=== PATIENT | female | born 1995 | race Caucasian/White ===

== ENCOUNTER 2024-08-11 10:29 | Outpatient (OUT) | payer OTHER, SELFPAY ==
--- NOTE | 2024-08-11 10:32 | US_ITS ---
[address] [address] Patient Name: NITESH ALBRIGHT MRN: [id number] date: 1995 Sex: F Assigned Patient Location: [facility] Current Patient Location: [facility] Accession/Order Number: [id number] Exam Date: 08/11/2024 10:34 Report Date: 08/11/2024 11:37 At the request of: RADHA ROJO Procedure: US OB >= 14 weeks Fetus EXAMINATION: US OB >= 14 weeks Fetus HISTORY: MISSED MENSES, LATE CARE COMPARISON: No relevant comparison available. FINDINGS: Abdi intrauterine gestation position: Cephalic presentation, longitudinal lie Amniotic fluid volume: 2.7 cm, largest fluid pocket 4.3 cm Heart rate: 135 bpm BPD: 7.77 cm, 30 weeks 1 day Head circumference: 28.9 cm, 31 weeks 6 days Abdominal circumference: 28.1 cm, 32 weeks 1 day Femur length: 5.8 cm, 30 weeks 4 days Estimated weight: 3 lbs. 15 oz. Femur length BPD: 75.16 Clinical age: Unknown Ultrasound age: 31 weeks 3 days Ultrasound CATHI: 10/10/2024 US/US OB >= 14 weeks Fetus IMPRESSION: Viable abdi intrauterine gestation measuring 31 weeks 3 days Electronically authenticated by: RADHA HERBERT Date: 08/11/2024 11:37
== END 2024-08-11 10:30 | disposition home or self-care (01) ==
LOC: NOMS 10:29
PROVIDERS: PCP Family Medicine; Visit Provider Obstetrics & Gynecology
DX: Z34.93 Encounter for supervision of normal pregnancy, unspecified, third trimester (principal)
CPT/HCPCS: 76815

== ENCOUNTER 2024-08-16 09:53 | Outpatient (OUT) | payer OTHER, SELFPAY ==
--- NOTE | 2024-08-16 09:57 | US_ITS ---
[address] [address] Patient Name: NITESH ALBRIGHT MRN: [id number] date: 1995 Sex: F Assigned Patient Location: US Current Patient Location: US Accession/Order Number: [id number] Exam Date: 08/16/2024 10:00 Report Date: 08/16/2024 10:58 At the request of: CLYDE RUSH Procedure: US OB transvaginal EXAMINATION: US OB anatomy, US OB transvaginal HISTORY: Screening Anatomic Survey COMPARISON: No relevant comparison available. TECHNIQUE: Transabdominal sonographic examination was performed for obstetrical and evaluation. FINDINGS: Number: 1 Heart Rate: 142.11 bpm H.B. /min Amniotic Fluid Volume: Subjectively normal position: Cephalic presentation, longitudinal lie Placental Location: Anterior fundal. Grade 0 Cervix Length: 4.32 cm , closed Normal anatomy: Lateral ventricles, cerebellum, posterior fossa, nose, lips, orbits, four-chamber heart, RVOT, LVOT, diaphragm, stomach, kidneys, abdominal cord insertion, bladder, umbilical arteries, three-vessel cord, spine, extremities BIOMETRY: BPD: 7.94 cm; 31 weeks 6 days; 33.20 % HC: 29.40 cm; 32 weeks 3 days; 21 % AC: 28.01 cm; 32 weeks 0 days; 46.20 % FL: 6.02 cm; 31 weeks 2 days; 17.50 % EFW:1852.63 g; 30.30 %, 4 lbs. 1 oz. FL/AC: 21.50 FL/BPD: 75.82 HC/AC: 1.05 GESTATIONAL AGE: Age by EDC: 32 weeks 1 day CATHI by EDC: 2024-10-10 Age by current US: 31 weeks 6 days CATHI by current US: 2024-10-12 US/US OB transvaginal IMPRESSION: Normal anatomy scan Closed cervix measuring 4.3 cm in length *Reference: [employer] Practice Guideline for the performance of Obstetric Ultrasound Examinations, August 10, 2007. Electronically authenticated by: RADHA HERBERT Date: 08/16/2024 10:58
--- NOTE | 2024-08-16 09:57 | US_ITS ---
[address] [address] Patient Name: NITESH ALBRIGHT MRN: [id number] date: 1995 Sex: F Assigned Patient Location: US Current Patient Location: US Accession/Order Number: [id number] Exam Date: 08/16/2024 10:00 Report Date: 08/16/2024 10:58 At the request of: CLYDE RUSH Procedure: US OB anatomy EXAMINATION: US OB anatomy, US OB transvaginal HISTORY: Screening Anatomic Survey COMPARISON: No relevant comparison available. TECHNIQUE: Transabdominal sonographic examination was performed for obstetrical and evaluation. FINDINGS: Number: 1 Heart Rate: 142.11 bpm H.B. /min Amniotic Fluid Volume: Subjectively normal position: Cephalic presentation, longitudinal lie Placental Location: Anterior fundal. Grade 0 Cervix Length: 4.32 cm , closed Normal anatomy: Lateral ventricles, cerebellum, posterior fossa, nose, lips, orbits, four-chamber heart, RVOT, LVOT, diaphragm, stomach, kidneys, abdominal cord insertion, bladder, umbilical arteries, three-vessel cord, spine, extremities BIOMETRY: BPD: 7.94 cm; 31 weeks 6 days; 33.20 % HC: 29.40 cm; 32 weeks 3 days; 21 % AC: 28.01 cm; 32 weeks 0 days; 46.20 % FL: 6.02 cm; 31 weeks 2 days; 17.50 % EFW:1852.63 g; 30.30 %, 4 lbs. 1 oz. FL/AC: 21.50 FL/BPD: 75.82 HC/AC: 1.05 GESTATIONAL AGE: Age by EDC: 32 weeks 1 day CATHI by EDC: 2024-10-10 Age by current US: 31 weeks 6 days CATHI by current US: 2024-10-12 US/US OB anatomy IMPRESSION: Normal anatomy scan Closed cervix measuring 4.3 cm in length *Reference: [employer] Practice Guideline for the performance of Obstetric Ultrasound Examinations, August 10, 2007. Electronically authenticated by: RADHA HERBERT Date: 08/16/2024 10:58
== END 2024-08-16 09:54 | disposition home or self-care (01) ==
LOC: US 09:53
PROVIDERS: PCP Family Medicine; Visit Provider Physician Assistant
DX: O09.33 Supervision of pregnancy with insufficient antenatal care, third trimester (principal); Z36.89 Encounter for other specified antenatal screening; Z3A.31 31 weeks gestation of pregnancy
CPT/HCPCS: 36415; 76805; 76817; 80307; 80349; 83036; 85025; 86592; 86762; 86803; 86850; 86900; 86901; 87086; 87340; 87389

== ENCOUNTER 2024-08-16 10:43 | Outpatient (OUT) | payer OTHER, SELFPAY ==
[2024-08-16 11:06] LABS: Basophils Percent Auto 0.2 % (0.2-2.0); Eosinophils Absolute Auto 0.1 10^3/uL (0.0-0.7); Eosinophils Percent Auto 0.8 % (0.9-7.0); Hematocrit 32.7 % (36.0-48.0); Hemoglobin 10.9 g/dL (12.0-16.0); Immature Granulocytes Abs Auto 0.03 10^3/uL (0.00-0.03); Immature Granulocytes Pct Auto 0.3 % (0.0-0.5); Lymphocytes Absolute Auto 2.8 10^3/uL (1.2-3.8); Lymphocytes Percent Auto 29.7 % (20.5-60.0); Mean Corpuscular HGB Conc 33.3 g/dL (29.9-35.2); Mean Corpuscular Hemoglobin 28.9 pg (26.7-34.0); Mean Corpuscular Volume 86.7 fL (81.0-99.0); Mean Platelet Volume 10.8 fL (9.5-13.5); Monocytes Absolute Auto 0.4 10^3/uL (0.3-0.8); Monocytes Percent Auto 4.7 % (1.7-12.0); Neutrophils Absolute Auto 6.1 10^3/uL (1.4-6.5); Neutrophils Percent Auto 64.3 % (43.0-75.0); Platelet Count 214 10^3/uL (150-450); Red Blood Count 3.77 10^6/uL (4.20-5.40); Red Cell Distribution Width 13.2 % (11.0-15.0); White Blood Count 9.4 10^3/uL (4.0-11.0)
[2024-08-16 11:18] LABS: Amphetamine Screen Urine NEGATIVE (NEGATIVE); Barbiturates Screen Urine NEGATIVE (NEGATIVE); Benzodiazepines Screen Urine NEGATIVE (NEGATIVE); Buprenorphine Screen Urine NEGATIVE (NEGATIVE); Cannabinoid Screen Urine POSITIVE (NEGATIVE); Cocaine Screen Urine NEGATIVE (NEGATIVE); Methadone Screen Urine NEGATIVE (NEGATIVE); Methamphetamines Screen Urine NEGATIVE (NEGATIVE); Opiate Screen Urine NEGATIVE (NEGATIVE); Oxycodone Screen Urine NEGATIVE (NEGATIVE); Phencyclidine Screen Urine NEGATIVE (NEGATIVE); Tricyclic Antidepressant Urine NEGATIVE (NEGATIVE)
[2024-08-16 12:09] LABS: Estimated Average Glucose 97 mg/dL
[2024-08-17 06:10] LABS: HBsAg Screen Negative (Negative); HCV Ab Non Reactive (Non Reactive); HIV Ab/p24 Ag Screen Non Reactive (Non Reactive)
[2024-08-17 12:13] LABS: Rapid Plasma Reagin, Quant Non Reactive titer (NonRea<1:1)
== END 2024-08-16 10:44 | disposition home or self-care (01) ==
LOC: LAB 10:45
PROVIDERS: PCP Family Medicine; Visit Provider Obstetrics & Gynecology
DX: O09.30 Supervision of pregnancy with insufficient antenatal care, unspecified trimester (principal)
CPT/HCPCS: 36415; 80307; 80349; 83036; 85025; 86592; 86762; 86803; 86850; 86900; 86901; 87086; 87340; 87389

== ENCOUNTER 2024-09-21 21:55 | Outpatient (REF) | payer OTHER, SELFPAY ==
--- OUTSIDE RECORDS SUMMARY | 2024-09-21 21:58 | XMS_ITS | CCD ---
Author Organization [facility] Care Team Providers Care Power Distribution Engineer Name Role Phone TafoyaYomi Primary Care Physician [phone] MD Bo Cid Attending Provider RYANN ., DR GARCIA Consulting Unavailable REQUEST, NONE LISTED Primary Care Unavaila ble RYANN ., DR GARCIA Attending Unavailable RYANN ., DR GARCIA Admitting Unavailable RYANN ., DR GARCIA Consulting Unavailable REQUEST, DR NONE LISTED Primary Care Unavaila ble RYANN ., DR GARCIA Attending Unavailable RYANN ., DR GARCIA Admitting Unavailable ZIEBER, DR RANDEE Mendieta Consulting Unavailable RYANN ., DR GARCIA Consulting Unavailable REQUEST, NONE LISTED Primary Care Unavaila ble RYANN ., DR GARCIA Attending Unavailable RYANN ., DR GARCIA Admitting Unavailable ZIEBER, DR RANDEE Mendieta Consulting Unavailable VICTOR MANUEL ., LILLI Consulting Unavailable REQUEST, NONE LISTED Primary Care Unavaila ble VICTOR MANUEL ., LILLI Attending Unavailable VICTOR MANUEL ., LILLI Admitting Unavailable RYANN ., DR GARCIA Consulting Unavailable REQUEST, NONE LISTED Primary Care Unavaila ble RYANN ., DR GARCIA Attending Unavailable RYANN ., DR GARCIA Admitting Unavailable RYANN ., DR GARCIA Consulting Unavailable REQUEST, NONE LISTED Primary Care Unavaila ble RYANN ., DR GARCIA Attending Unavailable RYANN ., DR GARCIA Admitting Unavailable REQUEST, NONE LISTED Primary Care Unavaila ble RYANN ., DR GARCIA Attending Unavailable RYANN ., DR GARCIA Admitting Unavailable KARASIK ., DR KNAPP Consulting Unavailabl e REQUEST, DR GOODWIN LISTED Primary Care Unavaila ble RYANN ., DR GARCIA Attending Unavailable RYANN ., DR GARCIA Admitting Unavailable RANDEE THORNTON Consulting Unavailable RYANN ., DR GARCIA Consulting Unavailable REQUEST, DR GOODWIN LISTED Primary Care Unavaila ble RYANN ., DR GARCIA Attending Unavailable RYANN ., DR GARCIA Admitting Unavailable RYANN ., DR GARCIA Procedure Practitioner Unavail able RYANN ., DR GARCIA Consulting Unavailable REQUEST, DR GOODWIN LISTED Primary Care Unavaila ble REQUEST, DR GOODWIN LISTED Referring Unavaila ble RYANN ., DR GARCIA Attending Unavailable RYANN ., DR GARCIA Admitting Unavailable RYANN ., DR GARCIA Consulting Unavailable REQUEST, NONE LISTED Primary Care Unavaila ble RYANN ., DR GARCIA Attending Unavailable RYANN ., DR GARCIA Admitting Unavailable ZIEBER, DR RANDEE Mendieta Consulting Unavailable RYANN ., DR GARCIA Consulting Unavailable REQUEST, NONE LISTED Primary Care Unavaila ble RYANN ., DR GARCIA Attending Unavailable RYANN ., DR GARCIA Admitting Unavailable Michelet LANDA, Yomi Corral Primary Care Provider [phone] LILLI RUSH Attending Unavailable RYANN, RADHA Attending Unavailable Medications Current Medications Medication Drug Class(es) Dates Sig (Normalized) Sig (Original) [id number] 200 actuat albuterol 0.09 mg/actuat metered dose inhaler (1 source) beta2-Adrenergic Agonist Start: 09-20-2019 take 1 puff(s) by inhalation once for wheezing Pro-Air HFA CFC free 90 mcg/inh MDI 1 puff(s), Inhalation, Once for wheezing, 8.5 gram, Refill(s) 0 Start Date: 09/20/19 Status: Ordered famotidine 20 mg oral tablet (1 source) Histamine-2 Receptor Antagonist Start: 02-16-2021 take 1 tablet by mouth twice daily Pepcid 20 mg Tab 20 mg = 1 tab(s), Oral, BID, # 30 tab(s), Refills(s) 0, Pharmacy: [facility], 160, cm, 02/15/21 22:38:00 EDT, Height/Length Dosing, 100, kg, 02/15/21 22:38:00 EDT, Weight Dosing Start Date: 02/16/21 Status: Ordered metoclopramide 10 mg oral tablet (2 sources) Dopamine-2 Receptor Antagonist Start: 08-26-2024 End: 09-25-2024 metoclopramide (Reglan) 10 MG tablet Indications: Nausea Take 1 tablet (10 mg) by mouth in the morning and 1 tablet (10 mg) at noon and 1 tablet (10 mg) in the evening. Take before meals. Take 1 tablet by mouth 30 minutes prior to meals 3 times daily as needed for nausea.. 90 tablet 2 08/26/2024 09/25/2024 Active MV-Min-Fe Fum-FA-DHA ( 1 PO) (5 sources) MV-Min- Fe Fum-FA-DHA ( 1 PO) Take by mouth Active Quantitative beta hCG (1 source) Start: 09-17-2021 Quantitative beta hCG Quantitative beta hCG, Quantitative beta hCG To Be Drawn on 09/19/[address] Garzon DX: Threatened miscarriage, Print Requisition, Supply Start Date: 09/17/21 Status: Ordered sertraline 50 mg oral tablet (1 source) Serotonin Reuptake Inhibitor Start: 05-22-2014 sertraline 50 mg oral tablet Refills(s) 0 Start Date: 05/22/14 Status: Ordered Problems Active Problems Problem Classification Problem Date Documented Date Episodic/Chronic Asthma (2 sources) Asthma; Translations: [Unspecified asthma, uncomplicated] Onset: 01-06-2023 09-20-2019 Chronic Diabetes mellitus without complication (4 sources) Other abnormal glucose; Translations: [OTHER ABNORMAL GLUCOSE] Onset: 10-31-2022 Episodic Menstrual disorders (4 sources) Irregular menstruation, unspecified; Translations: [IRREGULAR MENSTRUATION UNSPECIFIED] Onset: 06-14-2022 Chronic Nausea and vomiting (2 sources) Nausea; Translations: [Nausea] 08-26-2024 Episodic OB-related trauma to perineum and vulva (1 source) Second degree perineal laceration during delivery; Translations: [SECOND DEG PERINEAL LAC DUR DELIV] Onset: 01-06-2023 Episodic Other complications of ; puerperium affecting management of mother (1 source) Streptococcus B carrier state complicating childbirth; Translations: [STREP B SEVERINO STATE COMP CHILDBIRTH] Onset: 01-06-2023 Episodic Other complications of ; puerperium affecting management of mother (1 source) Diseases of the respiratory system complicating childbirth; Translations: [DISEASES RESP SYS COMP CHILDBIRTH] Onset: 01-06-2023 Episodic Other complications of (4 sources) Uterine size-date discrepancy, third trimester; Translations: [UTERINE SZ-DATE DISCREPANCY 3RD TRI] Onset: 12-06-2022 Episodic Other nutritional; endocrine; and metabolic disorders (1 source) Body mass index 30+ - obesity 06-27-2020 Chronic Other and delivery including normal (11 sources) Single live ; Translations: [ state, incidental] Onset: 05-14-2022 Episodic Other screening for suspected conditions (not mental disorders or infectious disease) (19 sources) Encounter for screening for diabetes mellitus; Translations: [Encounter for other specified screening] Onset: 06-14-2022 Episodic Prolonged (3 sources) Post-term ; Translations: [POST-TERM ] Onset: 12-25-2022 Episodic Residual codes; unclassified (1 source) 40 weeks gestation of ; Translations: [40 WEEKS GESTATION OF ] Onset: 01-06-2023 Episodic Residual codes; unclassified (1 source) 37 weeks gestation of ; Translations: [37 WEEKS GESTATION OF ] Onset: 12-09-2022 Episodic Residual codes; unclassified (2 sources) Gestation period, 33 weeks; Translations: [33 weeks gestation of ] 08-26-2024 Episodic Substance-related disorders (1 source) Smoker 02-15-2021 Chronic Comment on above: Added secondary to d ocumentation in Social History. Substance-related disorders (2 sources) Drug use complicating childbirth; Translations: [Cannabis use, unspecified, uncomplicated] Onset: 01-06-2023 Episodic Unclassified (3 sources) OT SPCF DIS/COND COMPL CHILDBIRTH; Translations: [OTH SPCF DIS/COND COMPL CHILDBIRTH] Onset: 09-11-2022 Past or Other Problems Problem Classification Problem Date Documented Date Episodic/Chronic E Codes: Fall (1 source) Unspecified fall, initial encounter; Translations: [UNSPECIFIED FALL INITIAL ENCOUNTER] Onset: 09-11-2022 Episodic Immunizations and screening for infectious disease (3 sources) Encounter for screening for human papillomavirus (HPV); Translations: [Encounter for screening for infections with a predominantly sexual mode of transmission] Onset: 06-18-2022 Episodic Other female genital disorders (1 source) Other specified noninflammatory disorders of vagina; Translations: [OTH SPEC NONINFLAMMATORY D/O VAGINA] Onset: 07-31-2022 Episodic Residual codes; unclassified (1 source) 24 weeks gestation of ; Translations: [24 WEEKS GESTATION OF ] Onset: 09-11-2022 Episodic Unclassified (1 source) [facility] DIS/COND COMPL CHILDBIRTH; Translations: [[facility] DIS/COND COMPL CHILDBIRTH] Onset: 09-07-2022 Results Test Name Value Interpretation Reference Range Facility Urinalysis macro (dipstick) panel (U)on 08-26-2024 Bilirubin, UA Negative Negative - 4(70) +++ mg/dL [facility] Blood, UA Positive Negative - 50 Froylan/mcL [facility] Comment on above: trace-intact Clarity, UA Clear [facility] Color, UA Yellow [facility] Glucose, UA Negative Negative - 1999(110) ++++ mg/dL [facility] Ketones, UA Negative Negative - 160(16) ++++ mg/dL [facility] Leukocytes, UA Positive Negative - 500+++ Cuong/mcL [facility] Comment on above: small Nitrite, UA Negative Negative - Positive [facility] pH, UA 6.5 5 - 9 [facility] Protein, UA Negative Negative - 1999(20) ++++ mg/dL [facility] Spec Grav, UA 1.025 1 - 1.03 [facility] Urobilinogen, UA 0.2 0.2 - 12 mg/dL [facility] Urinalysis macro (dipstick) panel (U)on 08-11-2024 Bilirubin, UA Negative Negative - 4(70) +++ mg/dL [facility] Blood, UA Negative Negative - 50 Froylan/mcL [facility] Clarity, UA Clear [facility] Color, UA Yellow [facility] Glucose, UA Negative Negative - 1999(110) ++++ mg/dL [facility] Interpretation and review of laboratory results Abnormal [facility] Ketones, UA Negative Negative - 160(16) ++++ mg/dL [facility] Leukocytes, UA Positive Negative - 500+++ Cuong/mcL [facility] Nitrite, UA Negative Negative - Positive [facility] pH, UA 7.0 5 - 9 [facility] Protein, UA Negative Negative - 1999(20) ++++ mg/dL [facility] Spec Grav, UA 1.020 1 - 1.03 [facility] Urobilinogen, UA 1.0 0.2 - 12 mg/dL [facility] CANNABINOID (THC) CONFIRMATI ON, URINEon 12-31-2022 Cannabinoid Positive Abnormal [facility] Comment on above: Performed By: #### [id number] #### [facility] [address] [place] [address] Dr. Janice Boateng THC GC/MS Conf 101 ng/mL Normal Cutoff=10 [facility] Comment on above: Performed By: #### [id number] #### [facility] [address] [place] [address] Dr. Janice Almeida CBC AUTO DIFFon 12-26-2022 BASO # 0.0 103/ul Normal 0.0-0.1 [facility] Comment on above: Performed By: #### C BC #### [facility] [address] [place] [address] Dr. Janice Almeida Basophils/100 WBC (Bld) 0.3 % Normal 0.2-2.0 [facility] Comment on above: Performed By: #### C BC #### [facility] [address] [place] [address] Dr. Janice Almeida EO # 0.2 103/ul Normal 0.0-0.7 [facility] Comment on above: Performed By: #### C BC #### [facility] [address] [place] [address] Dr. Janice Almeida Eosinophils/100 WBC (Bld) 1.3 % Normal 0.9-7.0 [facility] Comment on above: Performed By: #### C BC #### [facility] [address] [place] [address] Dr. Janice Almeida Erythrocyte distribution width (RBC) [Ratio] 14.4 % Normal 11.0-15.0 [facility] Comment on above: Performed By: #### C BC #### [facility] [address] [place] [address] Dr. Janice Almeida Hematocrit (Bld) [Volume fraction] 28.2 % Critically low 36.0-48.0 [facility] Comment on above: Performed By: #### C BC #### [facility] [address] [place] [address] Dr. Janice Almeida Hemoglobin (Bld) [Mass/Vol] 9.2 g/dL Critically low 12.0-16.0 [facility] Comment on above: Result Comment: Post Performed By: #### C BC #### [facility] [address] [place] [address] Dr. Janice Almeida IG # 0.06 10e3/ul Critically high 0.00-0.03 [facility] Comment on above: Performed By: #### C BC #### [facility] [address] [place] [address] Dr. Janice Almeida IG % 0.5 % Normal 0.0-0.5 [facility] Comment on above: Performed By: #### C BC #### [facility] [address] [place] [address] Dr. Janice Almeida LYMPH # 4.5 103/ul Critically high 1.2-3.8 [facility] Comment on above: Performed By: #### C BC #### [facility] [address] [place] [address] Dr. Janice Almeida Lymphocytes/100 WBC (Bld) 36.0 % Normal 20.5-60.0 [facility] Comment on above: Performed By: #### C BC #### [facility] [address] [place] [address] Dr. Janice Almeida MANUAL DIFF REQ NO Normal [facility] Comment on above: Performed By: #### C BC #### [facility] [address] [place] [address] Dr. Janice Almeida MCH (RBC) [Entitic mass] 27.5 pg Normal 26.7-34.0 [facility] Comment on above: Performed By: #### C BC #### [facility] [address] [place] [address] Dr. Janice Almeida MCHC (RBC) [Mass/Vol] 32.6 g/dL Normal 29.9-35.2 [facility] Comment on above: Performed By: #### C BC #### [facility] [address] [address] [address] Janice Almeida MCV (RBC) [Entitic vol] 84.4 fL Normal 81.0-99.0 [facility] Comment on above: Performed By: #### C BC #### [facility] [address] [address] [address] Janice Almeida MONO # 0.8 103/ul Normal 0.3-0.8 [facility] Comment on above: Performed By: #### C BC #### [facility] [address] [address] [address] Janice Almeida Monocytes/100 WBC (Bld) 6.3 % Normal 1.7-12.0 [facility] Comment on above: Performed By: #### C BC #### [facility] [address] [place] [address] Dr. Janice Almeida NEUT # 7.0 103/ul Critically high 1.4-6.5 [facility] Comment on above: Performed By: #### C BC #### [facility] [address] [place] [address] Dr. Jnaice Almeida Neutrophils/100 WBC (Bld) 55.6 % Normal 43.0-75.0 [facility] Comment on above: Performed By: #### C BC #### [facility] [address] [place] [address] Dr. Janice Almeida Platelet mean volume (Bld) [Entitic vol] 10.4 fL Normal 9.5-13.5 [facility] Comment on above: Performed By: #### C BC #### [facility] [address] [place] [address] Dr. Janice Almeida PLT 183 103/ul Normal 150-450 [facility] Comment on above: Performed By: #### C BC #### [facility] [address] [place] [address] Dr. Janice Almeida RBC 3.34 106/ul Critically low 4.20-5.40 [facility] Comment on above: Performed By: #### C BC #### [facility] [address] [place] [address] Dr. Janice Almeida WBC 12.5 103/ul Critically high 4.0-11.0 [facility] Comment on above: Performed By: #### C BC #### [facility] [address] [address] [address] Janice Almeida CBC AUTO DIFFon 12-25-2022 BASO # 0.0 103/ul Normal 0.0-0.1 [facility] Comment on above: Performed By: #### C BC #### [facility] [address] [place] [address] Dr. Janice Almeida Basophils/100 WBC (Bld) 0.3 % Normal 0.2-2.0 [facility] Comment on above: Performed By: #### C BC #### [facility] [address] [place] [address] Dr. Janice Almeida EO # 0.1 103/ul Normal 0.0-0.7 [facility] Comment on above: Performed By: #### C BC #### [facility] [address] [place] [address] Dr. Janice Almeida Eosinophils/100 WBC (Bld) 0.9 % Normal 0.9-7.0 [facility] Comment on above: Performed By: #### C BC #### [facility] [address] [place] [address] Dr. Janice Almeida Erythrocyte distribution width (RBC) [Ratio] 14.5 % Normal 11.0-15.0 [facility] Comment on above: Performed By: #### C BC #### [facility] [address] [place] [address] Dr. Janice Almeida Hematocrit (Bld) [Volume fraction] 34.0 % Critically low 36.0-48.0 [facility] Comment on above: Performed By: #### C BC #### [facility] [address] [place] [address] Dr. Janice Almeida Hemoglobin (Bld) [Mass/Vol] 11.3 g/dL Critically low 12.0-16.0 [facility] Comment on above: Performed By: #### C BC #### [facility] [address] [place] [address] Dr. Janice Almeida IG # 0.05 10e3/ul Critically high 0.00-0.03 [facility] Comment on above: Performed By: #### C BC #### [facility] [address] [place] [address] Dr. Janice Almeida IG % 0.4 % Normal 0.0-0.5 [facility] Comment on above: Performed By: #### C BC #### [facility] [address] [place] [address] Dr. Janice Almeida LYMPH # 4.4 103/ul Critically high 1.2-3.8 [facility] Comment on above: Performed By: #### C BC #### [facility] [address] [place] [address] Dr. Janice Almeida Lymphocytes/100 WBC (Bld) 37.6 % Normal 20.5-60.0 [facility] Comment on above: Performed By: #### C BC #### [facility] [address] [place] [address] Dr. Janice Almeida MANUAL DIFF REQ NO Normal [facility] Comment on above: Performed By: #### C BC #### [facility] [address] [place] [address] Dr. Janice Almeida MCH (RBC) [Entitic mass] 27.6 pg Normal 26.7-34.0 [facility] Comment on above: Performed By: #### C BC #### [facility] [address] [place] [address] Dr. Janice Almeida MCHC (RBC) [Mass/Vol] 33.2 g/dL Normal 29.9-35.2 [facility] Comment on above: Performed By: #### C BC #### [facility] [address] [place] [address] Dr. Janice Almeida MCV (RBC) [Entitic vol] 82.9 fL Normal 81.0-99.0 [facility] Comment on above: Performed By: #### C BC #### [facility] [address] [place] [address] Dr. Janice Almeida MONO # 0.8 103/ul Normal 0.3-0.8 [facility] Comment on above: Performed By: #### C BC #### [facility] [address] [place] [address] Dr. Janice Almeida Monocytes/100 WBC (Bld) 6.5 % Normal 1.7-12.0 [facility] Comment on above: Performed By: #### C BC #### [facility] [address] [address] [address] Janice Almeida NEUT # 6.3 103/ul Normal 1.4-6.5 [facility] Comment on above: Performed By: #### C BC #### [facility] [address] [place] [address] Dr. Janice Almeida Neutrophils/100 WBC (Bld) 54.3 % Normal 43.0-75.0 [facility] Comment on above: Performed By: #### C BC #### [facility] [address] [place] [address] Dr. Janice Almeida Platelet mean volume (Bld) [Entitic vol] 10.4 fL Normal 9.5-13.5 [facility] Comment on above: Performed By: #### C BC #### [facility] [address] [place] [address] Dr. Janice Almeida PLT 233 103/ul Normal 150-450 [facility] Comment on above: Performed By: #### C BC #### [facility] [address] [place] [address] Dr. Janice Almeida RBC 4.10 106/ul Critically low 4.20-5.40 [facility] Comment on above: Performed By: #### C BC #### [facility] [address] [place] [address] Dr. Janice Almeida WBC 11.6 103/ul Critically high 4.0-11.0 [facility] Comment on above: Performed By: #### C BC #### [facility] [address] [place] [address] Dr. Janice Almeida DRUG SCREEN RAPID (URINE)on 12-25-2022 AMP Negative Normal NEGATIVE [facility] Comment on above: Performed By: #### [id number] #### [facility] [address] [place] [address] Dr. Janice Almeida BAR Negative Normal NEGATIVE [facility] Comment on above: Performed By: #### [id number] #### [facility] [address] [place] [address] Dr. Janice Almeida BUP Negative Normal NEGATIVE [facility] Comment on above: Performed By: #### [id number] #### [facility] [address] [place] [address] Dr. Janice Almeida BZO Negative Normal NEGATIVE [facility] Comment on above: Performed By: #### [id number] #### [facility] [address] [place] [address] Dr. Janice Almeida MARSHALL Negative Normal NEGATIVE [facility] Comment on above: Performed By: #### [id number] #### [facility] [address] [place] [address] Dr. Janice Almeida CUT-OFFS SEE BELOW Normal [facility] Comment on above: Result Comment: AMP (Amphetamine): 500ng/mL, BAR (Barbituates): 200 ng/mL, BZO (Benzodiazepines): 150 ng/mL, BUP (Buprenorphine): 10 ng/mL, MARSHALL (Cocaine): 150 ng/mL, mAMP (Methamphetamine): 500 ng/mL, MTD (Methadone): 200 ng/mL, OPI (Opiates): 100 ng/mL, OXY (Oxycodone): 100 ng/mL, PCP (Phencyclidine): 25 ng/mL, PPX (Propoxyphene): 300 ng/mL, THC (Cannabinoids): 50 ng/mL, TCA (Trycyclic Antidepressants): 300 ng/mL Performed By: #### [id number] #### [facility] [address] [place] [address] Dr. Janice Almeida DRUG CUT HEADER DRUG CLASS TEST SYSTEM CUT-OFF CONCENTRATIONS ARE FOLLOWS: Normal [facility] Comment on above: Performed By: #### [id number] #### [facility] [address] [place] [address] Dr. Janice Almeida mAMP Negative Normal NEGATIVE [facility] Comment on above: Performed By: #### [id number] #### [facility] [address] [place] [address] Dr. Janice Almeida MTD Negative Normal NEGATIVE [facility] Comment on above: Performed By: #### [id number] #### [facility] [address] [place] [address] Dr. Janice Almeida OPI Negative Normal NEGATIVE [facility] Comment on above: Performed By: #### [id number] #### [facility] [address] [place] [address] Dr. Janice Almeida OXY Negative Normal NEGATIVE [facility] Comment on above: Performed By: #### [id number] #### [facility] [address] [place] [address] Dr. Janice Almeida PCP Negative Normal NEGATIVE [facility] Comment on above: Performed By: #### [id number] #### [facility] [address] [place] [address] Dr. Janice Almeida PPX Negative Normal NEGATIVE [facility] Comment on above: Performed By: #### [id number] #### [facility] [address] [place] [address] Dr. Janice Almeida TCA Negative Normal NEGATIVE [facility] Comment on above: Performed By: #### [id number] #### [facility] [address] [place] [address] Dr. Janice Almeida THC Positive Abnormal NEGATIVE [facility] Comment on above: Performed By: #### [id number] #### [facility] [address] [place] [address] Dr. Janice Almeida TYPE AND SCREENon 12-25-2022 TYPE AND SCREEN Negative Normal [facility] Comment on above: Performed By: #### T NS #### [facility] [address] [place] [address] Dr. Janice Almeida US PREG GROWTHon 12-08-2022 US PREG GROWTH EXAMINATION: US PREG GROWTH HISTORY: Uterine size for dates discrepancy COMPARISON: Ultrasound anatomy 08/17/2022 FINDINGS: Heart Rate: 155.2 bpm Number: 1.0 Position: CEPHALIC Amniotic Fluid Volume: 18.6 cm Maximum Vertical Pocket: 5.3 cm BIOMETRY: BPD: 9.6 cm cm; 39 weeks 1 days; 96% HC: 33.1 cmcm; 37 weeks 5 days; 31% AC: 33.7 cm cm; 37 weeks 4 days; 69% FL: 7.3 cm cm; 37 weeks 2 days; 48% EFW: 3283.5 grams; 66% FL/AC: 21.7 FL/BPD: 76.2 HC/AC: 1.0 GESTATIONAL AGE: Age by EDC: 37 weeks 3 days CATHI by EDC:; 12/24/2022 Age by US: 38 weeks 0 days CATHI by US: 12/20/2022 IMPRESSION: 1. Single live intrauterine with growth detailed above. Electronically authenticated by: RANDEE PIKE Date: 2022-12-08 20:23 Normal [facility] GROUP B STREP CULTUREon 11-11 S. agalactiae Ag Ql (Unsp spec) Isolate 1 Streptococcus agalactiae Light growth of ORGANISM 1 Streptococcus agalactiae ANTIBIOTIC M.I.C RX STATUS Benzylpenicillin <=0.06 S F Ampicillin <=0.25 S F Cefotaxime <=0.12 S F Ceftriaxone <=0.12 S F Levofloxacin 0.5 S F Inducible Clindamycin Resistance Neg NEG F Erythromycin >=8 R F Clindamycin >=1 R F Linezolid <=2 S F Vancomycin 0.5 S F Tetracycline >=16 R F Normal [facility] Comment on above: Performed By: #### C BC #### [facility] [address] [place] [address] Dr. Janice Almeida GTT 3 HR PREGon 10-31-2022 Glucose [Mass/Vol] 74 mg/dL Normal 74-106 [facility] Comment on above: Performed By: #### [id number] #### [facility] [address] [place] [address] Dr. Janice Almeida Glucose [Mass/Vol] 165 mg/dL Normal [facility] Comment on above: Performed By: #### [id number] #### [facility] [address] [address] [address] Janice Almeida Glucose [Mass/Vol] 126 mg/dL Normal [facility] Comment on above: Performed By: #### [id number] #### [facility] [address] [place] [address] Dr. Janice Almeida Glucose [Mass/Vol] 113 mg/dL Normal [facility] Comment on above: Performed By: #### [id number] #### [facility] [address] [place] [address] Dr. Janice Almeida GLUCOSE - 1HRon 10-25-2022 Glucose [Mass/Vol] 161 mg/dL Critically high 74-106 [facility] Comment on above: Performed By: #### C BC #### [facility] [address] [place] [address] Dr. Janice Almeida HEMOGRAM AND PLATELon 2021 Hematocrit (Bld) [Volume fraction] 32.0 % Critically low 36.0-48.0 [facility] Comment on above: Performed By: #### H H #### [facility] [address] [place] [address] Dr. Janice Almeida Hemoglobin (Bld) [Mass/Vol] 10.4 g/dL Critically low 12.0-16.0 [facility] Comment on above: Performed By: #### H H #### [facility] [address] [place] [address] Dr. Janice Almeida MCH (RBC) [Entitic mass] 28.3 pg Normal 26.7-34.0 [facility] Comment on above: Performed By: #### H H #### [facility] [address] [place] [address] Dr. Janice Almeida MCHC (RBC) [Mass/Vol] 32.5 g/dL Normal 29.9-35.2 [facility] Comment on above: Performed By: #### H H #### [facility] [address] [place] [address] Dr. Janice Almeida MCV (RBC) [Entitic vol] 87.0 fL Normal 81.0-99.0 [facility] Comment on above: Performed By: #### H H #### [facility] [address], [place] [address] Dr. Janice Almeida PLT 204 103/ul Normal 150-450 [facility] Comment on above: Performed By: #### H H #### [facility] [address], [place] [address] Dr. Janice Almeida RBC 3.68 106/ul Critically low 4.20-5.40 [facility] Comment on above: Performed By: #### H H #### [facility] [address], [place] [address] Dr. Janice Almeida WBC 9.7 103/ul Normal 4.0-11.0 [facility] Comment on above: Performed By: #### H H #### [facility] [address], [place] [address] Dr. Janice Almeida US PREG PLACENTAon US PREG PLACENTA EXAM: US PREG PLACENTA HISTORY: [place] COMPARISON: Ultrasound 08/17/2022. TECHNIQUE: Ultrasound imaging of the gravid uterus was performed. FINDINGS: The cervix measures approximately 3.9 cm in length. The placenta is posterior without evidence of previa. No focal placental lesion identified. Inferior placental margin is approximately 5.2 cm from the internal cervical os. Amniotic fluid: adequate. There is a abdi intrauterine gestation with breech presentation. A detailed anatomic survey was not performed.. heart rate is 142 bpm. IMPRESSION: Abdi intrauterine gestation with breech presentation. heart rate is 142 bpm. Posterior placenta without previa or focal abnormality. Electronically authenticated by: RANDEE THORNTON Date: 2022-09-07 13:38 Normal [facility] US PREG ANATOMY SINGLEon US PREG ANATOMY SINGLE EXAMINATION: US PREG ANATOMY SINGLE HISTORY: screening COMPARISON: No relevant comparison available. TECHNIQUE: Transabdominal sonographic examination was performed for obstetrical and evaluation. FINDINGS: Number: 1 Heart Rate: 142.9 bpm H.B. /min Amniotic Fluid Volume: Subjectively normal Placental Location: POSTERIOR with lower margin 3.7 cm from os. Cervix Length: 4 cm closed. ANATOMY: Normal Structures -cerebellum, choroid plexus, cisterna magna, lateral cerebral ventricles, orbits, midline falx, hard palate, four-chamber heart, RVOT, LVOT, stomach, kidneys, bladder, umbilical cord insertion into abdomen, three-vessel cord, cervical spine, thoracic spine, lumbar spine, sacral spine, right upper extremity, left upper extremity, right lower extremity, left lower extremity. SUBOPTIMALLY SEEN: None ABNORMALITIES: None BIOMETRY: BPD: 5.1 cm 21 weeks 3 days HC: 18.8 cm 21 weeks 1 days AC: 16.6 cm 21 weeks 4 days FL: 3.7 cm 21 weeks 6 days EFW:443.4 grams; 51% FL/AC: 22.6 FL/BPD: 73.7 HC/AC: 1.1 GESTATIONAL AGE: Age by EDC: 21 weeks 4 days CATHI by EDC: 12/24/2022 Age by current US: 21 weeks 4 days CATHI by current US: 12/24/2022 IMPRESSION: 1. Single live intrauterine with growth detailed above. Electronically authenticated by: RANDEE PIKE Date: 2022-08-17 16:28 Normal [facility] PAP ACOG PANEL 2: 21 to 29on 08-08-2022 . . Normal [facility] Comment on above: Result Comment: Perf ormed at: [facility] Performed By: #### 4 [id number] #### [facility] [address] [address] [address] Janice Almeida Age Gdln ACOG Testing Normal [facility] Comment on above: Performed By: #### 4 [id number] #### [facility] [address] [address] [address] Janice Almeida DIAGNOSIS: Comment Abnormal [facility] Comment on above: Result Comment: EPIT HELIAL CELL ABNORMALITY. ATYPICAL SQUAMOUS CELLS OF UNDETERMINED SIGNIFICANCE (ASC-US). Performed at: [facility] Performed By: #### [id number] #### [facility] [address] [address] [address] Janice Almeida Electronically signed by: Comment Normal [facility] Comment on above: Result Comment: Cristy Robert MD, Pathologist Performed at: [facility] Performed By: #### [id number] #### [facility] [address] [address] [address] Janice Almeida HPV Aptima Negative Normal Negative [facility] Comment on above: Result Comment: This nucleic acid amplification test detects fourteen high-risk HPV types (16,18,31,33,35,39,45,51,52,56,58,59,66,68) without differentiation. Performed By: #### 4 [id number] #### [facility] [address] [place] [address] Dr. Janice Almeida Methodology: Comment Normal [facility] Comment on above: Result Comment: This liquid based ThinPrep(R) pap test was screened with the use of an image guided system. Performed at: WB Performed By: #### 4 [id number] #### [facility] [address] [place] [address] Dr. Janice Almeida Note: Comment Normal [facility] Comment on above: Result Comment: The Pap smear is a screening test designed to aid in the detection of premalignant and malignant conditions of the uterine cervix. It is not a diagnostic procedure and should not be used as the sole means of detecting cervical cancer. Both false-positive and false-negative reports do occur. . Performed at: WB Performed By: #### [id number] #### [facility] [address] [place] [address] Dr. Janice Almeida Pathologist Provided ICD10 Comment Normal [facility] Comment on above: Result Comment: [id number] Performed at: [facility] Performed By: #### 4 [id number] #### [facility] [address] [place] [address] Dr. Janice Almeida Performed by: Comment Normal [facility] Comment on above: Result Comment: Mc Bustos, Radio Recorder (ASCP) Performed at: WB Performed By: #### 4 [id number] #### [facility] [address] [place] [address] Dr. Janice Almeida Reflex Criteria: Comment Normal [facility] Comment on above: Result Comment: See below for HPV testing results. . Performed at: [facility] Performed By: #### 4 [id number] #### [facility] [address] [place] [address] Dr. Janice Almeida Specimen adequacy: Comment Normal [facility] Comment on above: Result Comment: Sati sfactory for evaluation. No endocervical component is identified. Performed at: [facility] Performed By: #### [id number] #### [facility] [address] [place] [address] Dr. Janice Almeida CHLAMYDIA/GONOCOCCUS ZAHRA (SW AB/URINE/PAPon 08-02-2022 Chlamydia trachomatis, ZAHRA Negative Normal Negative [facility] Comment on above: Performed By: #### [id number] #### [facility] [address] [place] [address] Dr. Janice Almeida Neisseria gonorrhoeae, ZAHRA Negative Normal Negative [facility] Comment on above: Performed By: #### 4 [id number] #### [facility] [address] [place] [address] Dr. Janice Almeida VAGINITIS/VAGINOSIS DNA PROB Justin 08-02-2022 Kenna species Negative Normal Negative [facility] Comment on above: Performed By: #### V AGINT #### [facility] [address] [place] [address] Dr. Janice Almeida Gardnerella vaginalis Positive Abnormal Negative [facility] Comment on above: Performed By: #### V AGINT #### [facility] [address] [place] [address] Dr. Janice Almeida Trichomonas vaginalis Negative Normal Negative [facility] Comment on above: Performed By: #### V AGINT #### [facility] [address] [place] [address] Dr. Janice Almeida HEP B SURFACE ANTIGEN SCREEN on 06-15-2022 HBsAg Screen Negative Normal Negative [facility] Comment on above: Performed By: #### C BC #### [facility] [address] [place] [address] Dr. Janice Almeida HEPATITIS C VIRUS AB W/ REFL EX QUANTon 06-15-2022 HCV AB <0.1 Normal 0.0-0.9 [facility] Comment on above: Performed By: #### [id number] #### [facility] [address] [place] [address] Dr. Janice Almeida Interpretation: Comment Normal [facility] Comment on above: Result Comment: Nega tive Not infected with HCV, unless recent infection is suspected or other evidence exists to indicate HCV infection. Performed By: #### 4 [id number] #### [facility] [address] [place] [address] Dr. Janice Almeida HIV 1 AND 2 WITH REFLEXon HIV Screen 4th Generation wRfx Non-Reactive Normal Non Reactive [facility] Comment on above: Result Comment: HIV Negative HIV-1/HIV-2 antibodies and HIV-1 p24 antigen were NOT detected. There is no laboratory evidence of HIV infection. Performed By: #### H IV12 #### [facility] [address] [place] [address] Dr. Janice Almeida RPR QUANTon 06-15-2022 Rapid Plasma Reagin, Quant Non-Reactive Normal NonRea<1:1 [facility] Comment on above: Result Comment: Plea Note: This test does not meet current guidelines for screening and diagnosis of syphilis. This test is intended for following treatment response in patients being treated for syphilis infection. To screen for syphilis infection, a reflex cascade that includes both RPR and a treponema-specific assay should be utilized, such as Treponema pallidum (Syphilis) Screening [place] (326448) or Rapid Plasma Reagin (RPR) Test With Reflex to Quantitative RPR and Confirmatory Treponema pallidum Antibodies (938408). Performed By: #### [id number] #### [facility] [address] [place] [address] Dr. Janice Almeida RUBELLA AB IGGon 06-15-2022 Rubella Antibodies, IgG 17.40 index Normal Immune >0.99 [facility] Comment on above: Result Comment: Non- immune <0.90 Equivocal 0.90 - 0.99 Immune >0.99 Performed By: #### C BC #### [facility] [address] [place] [address] Dr. Janice Almeida CBC AUTO DIFFon 06-14-2022 BASO # 0.0 103/ul Normal 0.0-0.1 [facility] Comment on above: Performed By: #### C BC #### [facility] [address] [place] [address] Dr. Janice Almeida Basophils/100 WBC (Bld) 0.4 % Normal 0.2-2.0 [facility] Comment on above: Performed By: #### C BC #### [facility] [address] [place] [address] Dr. Janice Almeida EO # 0.1 103/ul Normal 0.0-0.7 [facility] Comment on above: Performed By: #### C BC #### [facility] [address] [place] [address] Dr. Janice Almeida Eosinophils/100 WBC (Bld) 1.7 % Normal 0.9-7.0 [facility] Comment on above: Performed By: #### C BC #### [facility] [address] [place] [address] Dr. Janice Almeida Erythrocyte distribution width (RBC) [Ratio] 13.2 % Normal 11.0-15.0 [facility] Comment on above: Performed By: #### C BC #### [facility] [address] [place] [address] Dr. Janice Almeida Hematocrit (Bld) [Volume fraction] 35.3 % Critically low 36.0-48.0 [facility] Comment on above: Performed By: #### C BC #### [facility] [address] [place] [address] Dr. Janice Almeida Hemoglobin (Bld) [Mass/Vol] 11.9 g/dL Critically low 12.0-16.0 [facility] Comment on above: Performed By: #### C BC #### [facility] [address] [place] [address] Dr. Janice Almeida IG # 0.03 10e3/ul Normal 0.00-0.03 [facility] Comment on above: Performed By: #### C BC #### [facility] [address] [place] [address] Dr. Janice Almeida IG % 0.4 % Normal 0.0-0.5 [facility] Comment on above: Performed By: #### C BC #### [facility] [address] [place] [address] Dr. Janice Almeida LYMPH # 2.8 103/ul Normal 1.2-3.8 [facility] Comment on above: Performed By: #### C BC #### [facility] [address] [place] [address] Dr. Janice Almeida Lymphocytes/100 WBC (Bld) 33.7 % Normal 20.5-60.0 [facility] Comment on above: Performed By: #### C BC #### [facility] [address] [place] [address] Dr. Janice Almeida MANUAL DIFF REQ NO Normal [facility] Comment on above: Performed By: #### C BC #### [facility] [address] [place] [address] Dr. Janice Almeida MCH (RBC) [Entitic mass] 29.2 pg Normal 26.7-34.0 [facility] Comment on above: Performed By: #### C BC #### [facility] [address] [place] [address] Dr. Janice Almeida MCHC (RBC) [Mass/Vol] 33.7 g/dL Normal 29.9-35.2 [facility] Comment on above: Performed By: #### C BC #### [facility] [address] [place] [address] Dr. Janice Almeida MCV (RBC) [Entitic vol] 86.7 fL Normal 81.0-99.0 [facility] Comment on above: Performed By: #### C BC #### [facility] [address] [place] [address] Dr. Janice Almeida MONO # 0.3 103/ul Normal 0.3-0.8 [facility] Comment on above: Performed By: #### C BC #### [facility] [address] [place] [address] Dr. Janice Almeida Monocytes/100 WBC (Bld) 4.1 % Normal 1.7-12.0 [facility] Comment on above: Performed By: #### C BC #### [facility] [address] [address] [address] Janice Almeida NEUT # 5.0 103/ul Normal 1.4-6.5 [facility] Comment on above: Performed By: #### C BC #### [facility] [address] [address] [address] Janice Almeida Neutrophils/100 WBC (Bld) 59.7 % Normal 43.0-75.0 [facility] Comment on above: Performed By: #### C BC #### [facility] [address] [place] [address] Dr. Janice Almeida Platelet mean volume (Bld) [Entitic vol] 10.3 fL Normal 9.5-13.5 [facility] Comment on above: Performed By: #### C BC #### [facility] [address] [place] [address] Dr. Janice Almeida PLT 214 103/ul Normal 150-450 [facility] Comment on above: Performed By: #### C BC #### [facility] [address] [place] [address] Dr. Janice Almeida RBC 4.07 106/ul Critically low 4.20-5.40 [facility] Comment on above: Performed By: #### C BC #### [facility] [address] [place] [address] Dr. Janice Almeida WBC 8.4 103/ul Normal 4.0-11.0 [facility] Comment on above: Performed By: #### C BC #### [facility] [address] [place] [address] Dr. Janice Almeida CULTURE URINEon 06-14-2022 CULTURE URINE Culture Observations: HEAVY GROWTH OF MIXED GENITAL LICO. NO POTENTIAL PATHOGENS SEEN. Normal [facility] Comment on above: Performed By: #### U RCX #### [facility] [address] [place] [address] Dr. Janice Almeida GLYCOHEMOGLOBIN A1Con 2021 ADA RECOMMENDATION SEE BELOW Normal [facility] Comment on above: Result Comment: ADA RECOMMENDED LIMIT 4.0 - 6.0 ADA THERAPEUTIC TARGET < 7.0 ACTION SUGGESTED > 7.0 Performed By: #### A 1C #### [facility] [address] [address] [address] Janice Almeida Glucose [Mass/Vol] 111 mg/dL Normal [facility] Comment on above: Performed By: #### A 1C #### [facility] [address], [place] [address] Dr. Janice Almeida HbA1c (Bld) [Mass fraction] 5.5 % Normal 4.5-6.2 [facility] Comment on above: Performed By: #### A 1C #### [facility] [address] [address] [address] Janice Almeida ROJAS BOX TEST PT SEND OUTo n 06-14-2022 SENT TO REF LAB 06/14/2022 Normal [facility] Comment on above: Performed By: #### N BOX #### [facility] [address] [place] [address] Dr. Janice Almeida TYPE AND SCREENon 06-14-2022 TYPE AND SCREEN Negative Normal [facility] Comment on above: Performed By: #### C BC #### [facility] [address] [place] [address] Dr. Janice Almeida Coding Summary.on 05-07-2022 Coding Summary. CD:[id number] Gh0bWw+PGhlYWQ+PE1FV SJfB61yiDMhjT8YQ9aWU W2DDMMRUCKRAJ1EYW9yt SR3STkfU6LutuPc MzkekKWfQR57MGw9VRK0 sGvcNFxxaM7toXFdW3z0 ZzSvPX72qK99ORaeYUTe McB8EtKqtsqoyYUf Q1xvNnEzwSLfHeg+PHRh YmxlIHdpZHRoPScxMDAl ArMtlDqgJX4jKb4tJZDo LWNvbGxhcHNlOiBj v4peYQZfJXvxFI6pgRzg J9IsqYK2KDRpg7y3Ot66 dHI+MEIcJWW3oZafZQrv r349ZzYss5nyMJP4 pJEmFDvsDQU9R48qf2I1 XRDyUYJoIZP6bSU2gY5f eXeqgimbE5IryDOuMjL7 QNM7qLDmoP0kfOrs jwwvwY5gKpx+E10FHG1R XUGZCS9AYtc6L3VaMkcp dHI+AK04GZCrCY31dZTu wLBur6idaUn4ZuPb HEJpRFM7uNjdGSccp9Dk COQlB11fzIBjz6G4BGHc iNclxWQdVjBbwWS3zZ2q ITpkngvww9egkejv Cjqze5rnzu90eV76U23y GIumLRNcNDB1ENTuWFQc oAyqxg2qoY1bSi5+IDxj v4wvw0jlvCb4WqOl PBWpsnOubKgpETV1q9Bd Qj62R3UcaEsze2OsNmp2 ff00kPHqp1T7bPM6FUhm ZGOotN7qUPblYhB5 ZQXpRyFquR57nDMaSWkr Qy9owMkjxCeeSO9oULUx hxiuIWPyrI8fABXosDGi eBlaHU4mTQZznurz y409XmKaNGI9XQEynXOz O5MwsX0jAiZmEIDrSJDn O5HfcBFeQNvzN917TDkf ZmK5JUPwheLsA6Xz CIMhzSciYxY4q3G7Im1F q8AkezovMFY1IEfbBXJ3 UpJ0PdBtJgH9F4GoXag7 VWBmpCzrWL1nG4Lo KRZvpnbadrycgMF5LPUx QFUbcD68lEMlEBdjLo8q s7Q8m712VWOfKXUgsP78 Vo8wzBuoOTNfvHRK jO5kvowvk9hwqhkiKyVw LHRsFKh9KFn6SAThvTkp FuXlAFQ8EgE3LIG1yNHw qJ2fsNgfgbazwP5a Oyc+P63doO7mCQL9WTR9 xhstVDWnyhXjER91AH22 N8UnWwtutKCnrCC+PGRp pxFgjPmkSD0sUxYs a1iva4QhTPogR4AsHCTq RThiNpn1VCLdMSN9gTK3 jY0gKUDhWSsdy5I6eAL2 W6LpfzOjgo6hw6tn PCDtYVdqL81vcMOay2X9 IDZuoDZ2ZHWmfAgjFzTm eC13Rch+WHXpkTrfe6Eu Pjlop1ptc3hdpPc0 IjMwJSIgdmFsaWduPSJ0 x3VtPr60Q52rYBbcCEJk JWXwDPEhTVJhvIunpo5l sR7yLt4+PGNvbCB3 jJS3aE5xDBSkFyZ6WZbl T498JwAlvNZbUyyao9nm t5cfpJd2JkKnXOZwirZj nMdgPUF5c5EgVp29 I07yMIeaGLJmUSSfGTHf LMSueIvuwz9rxG1hJv9+ AG6bf2opny15gK13eRA+ WRXkHHI5yRswRIkk TYBciL6fKWaiFwA7JFYe LjIycQ13qLHuFIsjCi3d aJrniZehND4wEVFkhzrn e777VrDoo5giVRLk eOZuFBbhOAZ1J28xl4T2 VQDiZCAjHLW1tOQ6uG1v bGlnbjogbGVmdDsgdmVy sKwzBTrmIQhrG526 IHRvcDsnPlBhdGllbnQg CwVfCPi7S8FqIcg8VUKp oTzcTF7eaBEsRTzmWi4e dWbefGiyDX0pWPIl expdn220OjLvh5inOCKo sRUpDSmwLTQ4E72he6F6 DXXaYZZjDTA5kXS0nS6e bGlnbjogbGVmdDsg fnOxtXuvUSafTLseT722 IHRvcDsnPkJpcnRoIERh eRV4FM92US18kZKdl9U5 sPW1P6ZuJQVkhige xuflaLT8WBVrQFFdkL35 Gl0ruYegQh2uTHIyZQK1 TCIuzSKiU1WapT2kDhZm KVPpZUExC4XigDBq GIdoG300QNavCgM4JGHb upTpW5WgOGSbqLbwPiX8 j3H3Rz6IO7P3BA30WY18 xJHxm2C5hMY8Z8Wa JLJrapbhvpbpxWL8RZDp LGIlrN75Ys1wgHuvHx4n ATTgMQH3LRFoiXLfP5Sb vI5vWgAqTBXfGOAo O4VrtDFeMSwkH553KIvq HkF0FUBezmJfW1VtHQHm uOhaZtF4e5F2Ww1PFSk0 BA95KP64oSAwi9P0 pQE6F5NjQLNqzxsuxqhd wXM6VEDlXXYmcQ47Fa5u qPpuMn6tAWZxKES1ORPy vIKbI6CqsF4oBgIt DLPcRNWcX7FmySBsBNre P281XVnnGsF8QZQwydMr W2DqYMRrePxsBiQ2g3I2 Mo8SRWFcMC27PWC9 hBH1NS17FY53O5EcHcqa dGFibGU+PHRhYmxlIHdp ZHRoPScxMDAlJyBzdHls KG0lIt2lQFWuUWDa cGptnWPkSbSta7myHBZk KSijVV9otLjrR7GibRQ3 CVXap1d3Wx20N27wI3Lz dXA+QJLajSP0cRV1 bY4eBfEiWcD4VLasJ986 FbCfmNSkRtxxa5czi7ce iVy5RxI1RCWbquYtbDhe THQ8v0PvFm93Q09p IHdpZHRoPSIxNSUiIHZh cUmfqe4pfM9oHl2+PGNv nDP3rUC6bH2mGmSjBiF7 JHbcU107PxDhuCOl Gacmg9igf1pitJb8VcOk PLWlucDbzRtoTIB4s7Yw As74C6KnyLffi3IgHip4 eg18uCZxr7R7nIV4 T0DpJHJfxionbLFmkNti SS9vOPIrertjFNDfpS2n DTCkV3l1FpWgEuN7XGfx V4EdhfP4KPAhrBNu MFhrYNU2K94cx5N4XPJx SHXuMPU2pQY0hO9ajJfd bjogbGVmdDsgdmVydGlj LPgeWRufM698YUGy qEueCZHnkQ6xCVBwgHFq eMhyLU9bOPJitmyoYmFY L0MLTkuuB6lGWgVVAH2c QTwvdGQ+PHRkIHN0 mLodYTqwAIJttV6dREWz Q2b8GsQiArY3AJnwW9Cs OKXmdhyzKy72fR6iNaCb DrB1BBinO0ZdpzT5 QTGltPKuOBkiOJU4M13w y5N2CFOpXVXnUUK8xVR8 eS3wcVnymrrqcICjrMpd dmVydGljYWwtYWxp K064IVGxsXbfZfK4MwB6 VvL4GFA5W1WnSvu4BYKy wTupDC2pdSTbQIbhDo7h xArhqVwzOD1qQOLh hcnfTAHuvS6iCVEdzVEm yNphHH6tWEQhzrpix737 GiNiLRR4JUNpsMXnR0Bj hG5hHuHmMVBbPAPb A4ZjfXSjZDbvQ418PKhj CkR3NCWgiqJiK7WtJTUw gRkaUjZ3z2E2Fm4zOKHD ZWFyczwvdGQ+PHRk HVZ2rBzuSDqdGXIrbA9h DXXlA2d0JoWzWnP6IVpc G6NrOVDnhdqpXp67xZ2u ZtQkBpA8HAuyA1Jc rcJ2TNUxsYYmNEgqOSI8 C88iw3V3BNKtGBDrVUR0 qUC5uK1mnGdkfpsmiQMf dDsgdmVydGljYWwt FUeyO875IRMysAkeQlPs bWFsZTwvdGQ+PHRkIHN0 hElfDPffJNHjlE4yNYQy Q3h2BgDyPzC5ULxm U9OnCSAilgwxHr88gZ3r ZvNeCjE7MLepS5DrqeU4 AFKlvTZhBKqzJND2T70n v2L0ULLpZVKyIWU0 nOF1iZ2vpSgvyvnqxCAu dDsgdmVydGljYWwtYWxp E837IRPjwJgpFy68rACm nQkditL4D0TwZoyq dHI+FX56DEKwHF81oHRe lYJen4oysRw1ZlNdUEPj IVS0iOyaFIjdi3XlFHQt D12qzXSxf8B4XFUg oXhuoHDrZvXckRV9vP7e CPcisriue0swffceGnyu h7zsbs68kT11P59pSVva ZHRoPSIzMCUiIHZh dYqlai8kaM8hEo0+PGNv kZV3vBF2oR0oDtHdIpN7 IVgzI346IyWcaMKqAoyj f6njc3adtAk2DuGh KEKrjnRatYvaQVX1n1Fc Xb93P71uMBqwTQKiJHNp PCVtSHNjbLbyuj3hlK9q Ii8+WT2qm7uypt39 rO94pTU+QENoBAR9nOmf YPiwNAQruU8sWYrsBtD1 QMEkEaZcjU51zAEoUNll Fh0jfMijrOaoYV4c CATarwcli846LyOkm7pb UFFoiBGtQVsbXJA4W16s f7R7ISLzJPDvIHK0bZO0 dV0riCvhuncprWMw dDsgdmVydGljYWwtYWxp Q937UXMtpEaoUkOrpZSp L3qyrkALBC1dOjdzdQL+ CQUsWUA1sMhiPZry XZHghC2vEDRmY0n9XnQr JuJ9FGtsK7EdnyN7LIPl qVBkKDDxcWKBvL3olpbq b3atclpuQnUfOLEw ODq4XLx8FBPvqMzhPnFn YSJ8XaK9HJD9cMTuiB6b bQfxfxyidD8gZqn+RklO OjwvdGQ+PHRkIHN0 mYarAPvbYYQhlM0hEJZn L8t2XpUrDoZ6IDrtI8Hx taQ5XJTnxHFwKLNzcHAN wE2mwdlfj0vwqmqm TwUcCSTaDHm4DOm3WKYu xUlkQuUwASF6ZqK0CAY2 fNExwL4xcKbiwpvhvV9a Oyc+TVJOOjwvdGQ+ SYOxKPM5nKpzOQfmRZQa eN3aYSXwN7y6TaByIgC3 GKfoX3BwngJ6HMBstUVp IJJhuSXKrX5gfcbj y5bhwobxDfKpLVTuCEm4 FQx9UGGiqEctNjXpGJS2 CwD6ZDL7gFCdlA0yxLqy yaknfT3yTxf+UGF5 CBO4GS09FI04M6WgDcku dGFibGU+PHRhYmxlIHdp ZHRoPScxMDAlJyBzdHls YI1fEs2uDFLhUKXv bGxh (more content not included)... Normal [facility] XR hand BI 2Von 05-06-2022 XR hand BI 2V [facility] [place] [address] XRay Report Signed Patient: Haley Swann MR#: [id number] : 1995 Acct:[id number] Age/Sex: 26 / F ADM Date: 05/06/22 Loc: [facility]XD Room: Type: [facility] Attending Dr: Bo Cid MD Copies to: Bo Cid MD Ordering Provider: Bo Cid MD Date of Service: 05/06/22 XR/XR hand BI 2V: KIARA HAND PAIN BILATERAL HAND - 2 views each REASON FOR EXAM: Ganglion cysts dorsal left hand/wrist COMPARISON: None FINDINGS: Left hand: No focal soft tissue abnormality. No radiopaque foreign body. No acute bony process. Joint spaces are maintained. No bony erosions. Right hand: No focal soft tissue abnormality. No radiopaque foreign body. No acute bony process. Joint spaces are maintained. No bony erosions. XR/XR hand BI 2V IMPRESSION: NO ACUTE FINDINGS. Impression dictated by: Albert East Jr., D.O.05/06/2022 11:59 AM Dictation Location: [place] [address] Transcribed By: [facility] 05/06/22 1159 Dictated By: Albert East Jr, DO 05/06/22 1158 Signed By: 05/06/[address] [facility] US PREG TVon 05-03-2022 US PREG TV EXAMINATION: US PREG TV HISTORY: Missed period COMPARISON: No relevant comparison available. FINDINGS: GESTATIONAL SAC: Present and normal appearing. POLE: Present and normal appearing. YOLK SAC: Present. CARDIAC: Present. UTERUS: Normal size and appearance. OVARIES: Right: Normal. Left: Normal. CERVIX: 4.1 cm in length and closed. CUL-DE-SAC: Normal. OTHER: None. AGE BY LMP: 11 weeks, 3 days CATHI BY LMP: 11/19/2022 AGE BY US CRL: 6 weeks, 3 days CATHI BY US CRL: 12/24/2022 IMPRESSION: 1. Single live intrauterine . Electronically authenticated by: RANDEE PIKE Date: 2022-05-03 16:41 Normal [facility] Quanton 04-26-2022 [place] [address] m[IU]/mL High 1-3 F [facility] Comment on above: Result Comment: GEST ATIONAL AGE HCG RANGE (mIU/mL) NON- <1-3 0.2-1 WEEKS 5-50 1-2 WEEKS 50-500 2-3 WEEKS 100-5,000 3-4 WEEKS 500-10,000 4-5 WEEKS 1,000-50,000 5-6 WEEKS 10,000-100,000 6-8 WEEKS 15,000-200,000 8-12 WEEKS 10,000-100,000 Performed By: #### 2 [id number] #### [facility] [address] [place] [address] CHEMISTRYOrdered By: SYSTEM SYSTEM on 04-26-2022 [place] [address] m[IU]/mL High 1 - 3 mIU/mL [facility] Remisol Consent for Treatmenton 04-10 Consent for Treatment [id number] #1.00CD:127 Normal [facility] Physician Orderon 04-26-2022 Physician Order [id number] #1.00CD:127 [facility] Outside Operativeon 12-06-19 22 Outside Operative [id number] #1.00CD:127 this was entered in ERROR [facility] Consenton 12-05-2021 Consent [id number] 5#1.00CD:127 [facility] Provider Visit Summar yon 11-19-2021 [facility] Provider Visit Summary Please click on link to see image. pdfCD:[id number] qDnABUnltgY0YPSXfKI9 pocc5PSuaAJBnYHLbEWX qROXrIQSiEJRJC6EcHmB la3dfrsOo Wmt3XSyjX1BoDLMdw40O YXRlIChEOjIwMjIwMTEw QOT6GuC0NsiNTl7ELG8g g7KkSaXpQGCmByfF MHcDCCQbUsFyTqYhH7ux ucg9lEVgYZLjGNGMOQOd OxctbGOuVK1IaGX8TZWk G14iGKf+PgpzdHJl WK3PcKrnafwRY+cex99z TvZgJCFsCHuGpUAAkRGm wPsVfsBTODZOGWUD14NF sKKoyFIEKYpYsFqG 8JdxGlmo3l1AMRWliXHV 0USep/G83i8t1+8f53ye 3/r8qhj8ozw0MpSisMfw MBdWAUAokogj/L0Z vDKeMExGrJPnHTS2TNxd rmGVUMtuxHzLp58BtRnT r1FzdlDNpZ5rXKeY/0+q 6NkwAQFnTI5ytMnc kukB4EiXV4zU1KgsVWiQ NWMYSqHJhaI4tdv9jIgn P/aKkCoMbNCAI44Qqn7k TIgD5eJxkcxfS60U IpfiPAE/T14M1IrfGVYR 5PxGESvkc+O4tUvEb1HT OWIikJcN4uyChsrpFLQn pX7ByV+yuM7zNZAV xhqkEAyU1zWSc96Pw90C tsBY1Kth3jFZAumDt8IP 1ffiARY4W3IOyCdPe5HM 1XQkO7FNaBuOK6OI zo8UWw9Yko3vVJ5f5VU6 204Z4K1/bH/on4LBCCxX Rfhcb8xLvdFvDJaHyd7/ fBT9HNUD500a6jl3 4ULwrgsPLBfa3ucu81kY +FwbRUF/90+Nn77cd4 iu1+Lw/Dh5/CkWZKGIq6 isBbz2UzBp10f0gv WW30lQ194P/PYR3BT+GL +UJ6EOM5fuJaFIm7XVbE RJAlYghE/6mJ/aJxW5bR z1uvuV5MVbALvHoi AeTnfoCiEgGSsFu+Av3e y4C7HQQvjUz54Lz7/yzo 81iOrjHSMQKd8pc7ARBL KxXnzawpriVAAwJQ BjSgCfSAETAHTOAAnIEb 8AS+RT7BQTBtCsfIBBJV mXZB3hDhzUwJx5ObNxqP 1qTYNNAx3SbPi02f LGfT46VwwXIaEBbBUBwE l1EBzNSPGMUlCYFUvEXk qoyOrmJqZJX7L/KFgqEI NP1TjgLzXONVkdEt pZQiPTtC8sJw0QyzOLJy ugANQnegIWgc+zC4NvQq GspEltSgcPcjZQ48ZN5Y E8MwiC44XL2HE8YU lOO0FK2BX5ZW3XdrLC9T YiQRBUC8kZKgVobPlNNb 8UgKIkZWICVIBdKAtCLd LI8iTNGyR6dxHUTO RTFQTJQbKgAVheKiclAr GJlZ3zw2tQ1BQ+oaagg1 yndPKhP41FRiS6VhOevl iz3ID4Qf7L7xfdIK 2H59EIgMKjQjU5nkwqeT RAftOnRXezejG7OGYIMF xAxjprBYrCbWCuuODcVy tVJaGyFPvnO4EohF E1U6cnSe3NISEO7yWB0Q E2KikO6VgzGvoG8ryjDr rBA4Zs7Pa2PZ5prenhkk /NP2BK5uiZtqA5fA NfbmnFHCSjZu1ZsiVnBQ iWc6BGjTt8gV8yiyQnWV 8TxxiPiWRCFZktikBJKU rQa3d3ITyHq1rodu l4F3noLfDBonyDt2dmlY /BbEyqWuDMyYV4icXBEV jGBZ9SbtNeiP4Ym0bjRP 0ShiB2hIzJfO0Gkf QhyAnjxLzCbJuvr3OAWH lxb5iqInPyFOumqEA7pU DqPPE9zjnJxezzcygJFG AgCoKFHQ9BDLTdhq T3lvPMcQlNYRK1yQ5w0q WxXb3Vjme0Co5NmJgmDA m7kbHM2AUwoLsOmXX4Ov 0t+g02i0umRXL3x3 et8Hk33erqCkilzu0MxB pLWuTvMv9rjVfqsVo4Pg xYIAt7GfROaui9qABn5Z gKj2zcJEp9X9fXBa TGxADsxXR8nEMl0+nSld PV1/0TnoFq5stoF7dW6C xHI18Bja0Lq8kzrj5HL5 2/YB5c4lrIU0OEbO GkSyJ2DTuwXUGXkQsjDd CY2wIclsvCdieeSUXdER TRXttD4rr2mHJP77qOhC rNulVKN1DnowkZKv SZ/Dk2So2edW9jdukvLn UolIDudSQpdql3NPZtav cQjEj2btOFzILGw8XS9K wpaOlmmWNZaXrWAr AkrT3N3xWAg2zJe6zIjA +cbCtAXe4oVxbFE7cZhy dgG6yYqJbH5e16577qnE fvItyXe1o9Q6V2+x n2e/xr7b/ldQLwvfV32M 4FpiQR9kJb7jokG2jlJs /rvmu435Ta2NENe69dw+ yAB9Tqc7Wa22Mbwk Fjx304BKEOLlCsguWenL u6cKHvln0oy6rZyhU0e+ 8sC3k3E07ZM0n3nRk65l pTB9H1rDd786vL4c ncXaIFQcTdPzBN8Kk3jh Ba88kklEMP2Qg1Lam06L mN38rz6j3u/Nhrcx8RY+ iI+/T4nPgC/FN8q3 9omqa4Ryoj+L36S/o/9S /4EN3UPsiP3HgiI9V2cB qVHZ59whLW/WW1UCJdGC BwLr1HOAPOboNvuC C9kWcn++yXzR/B9UUXvR hg19QTtFLI9H2+GY8LDw jnNOCeIPcfP1GsKJZS04 tPJBiZscKkU8YYVg wCIOnHT2ZiBu0HuEr4bw CIvwhlmh5ScyEeCMsU51 uDu0sOE34LYodBxTplE3 MmBt8Mhumsur3DPY CtnjDj7NTR1nGJ7JEugW MN7Uop5W9HHnilREu4jC K9lg1l6aK67gmtnvzA/O L+ePprinlKeMpbqn bksdT/PYo6wtGBGO6CZu 2YDtczluK8If7qO2cbjH zUPkuAmOqlUOXFFEq6NU BTB1nH6EWNiez2GV 3JHnZD0ZN+VCuYtyuyQ0 +a9Eo6Oswb97iXc9lzxx TX50/xGZ3HAYVH+hZeHG wtElfku+Tskyhr0k d7cr8tikM4s3vbazlLMx r+hOdeIgwPOSFo2B+1cT Vmes/vBH5CglQV/Xxqzt GoKhJoQ6wJ7/XUux UrG4+NZ6t/T8H6KaGIgT Ni5iUZLrBmxj7YMhLAvP 0esC0I3Wf7Y/mhSbK1kO Ng+VKQSc9tDQJyps q7yN9j5drzXNrji4qGjk 5M4ULmJ74B5TTFoiOcgW 2HNuiL7YHPBTcgTNI13e el+xJy5otnobbMpj maDw9391GTf1t+5urdOt G016y0fj56m6b62Lo2qW bR2A4qa7wgqaK/u+Zn3d 4SXBAMc3OY5cb2u/ lN8gYhha4uW2O8yt0LDg y/aGoRDIdyW3oxdF0Cqi Ba7lYCDBLA11+Rfa86sU ia76ISUumi0X8Yzx cvl0VLcEKqie6UuDNonP 0ua9Bb1gZ1vsw/v3Nt/v G5EwyKb88aXjC6TMDJq+ pClyzdjR3irW13jr h3sSe+1dsW2voZp8t+Bs 0Nnz5/zTuomf5gc54k13 aLoqT44wSY4ifFE1wcAm sb/2G2dp4skaLprd O1/ymdNmxCuodeVDsa3O T1/kcBvaczM0Najj7mi4 SVUj7x3PV3NdnQkjchQo PL+yd0c37pk18Rbr E2YlVYwGphvmw9AZaOPy 5oTwm8F+Xbuc8XooRv/9 Buhp6gLUk4gDA7n4M2eJ UAfHammRS3zr1EhK 0+wv5sAJG6f+XPvM/Nl3 v3j+8v3OJiraMJh290+b Xmi+9Ltk5iwmiiWtv9+E s1Mxp8oUsDK/Fang 19bGt1ZE+e+x7ys/WHzo /ri93z0j8avNggEJ7yNn YtLxCLD3ehCgrPadppBz YqkYZuGhJQ5jbomg F2tTK6Jvq3McEAOxCEXL HOpdxzKtOfyBCmYsPG3t kts0PBjfTR5XsBNjQY7Y LVWkJKY1GNtyKM7I sFS3dMAkPU4IYXbQUYJi AIWmE7YkTGMhKUYuHty+ OysxbBGlWH7ZFA42bVCc s8N2GCOuT4qeRBTv f57jDLiyEMPOXE9zNXJR FLvoUYswZJW5XhCgatxw WCRxEx61bRy1wCMmKINr UPgjcJ9vHez4FnFw j0QpXi6cMa6ciOKbCq3H ATHlBonDHFXmoH1mywI5 lvYnVIWceALfAc9vp0j6 EnhsWn0eUz8xJZv9 OzNpDgIzLNZtVt3roQ82 ATxmbiLyLm3CURYoLqwZ IQUclclomClvkrB1wYwy jzafRXU9Ggb1ySR4 Ks0yqm2oTN6mID0nq14i vSUjXfMwBy4kTMSsDtjr Ev38dE4uXk2MZNLqVzjF um4klYSvkk2AyQGw nWCnJo6LVBQcwyLul78h ST06FQswlCChKpJrb9R8 L5PwYcs8dKWuAuTYLkLu cnNpb24+SY86HS4w DQZ6XEJMRpQvc6ukup6G NH7wZPC6VSLnU5CssMCn b24+FklrWWL9SMIqB4Qx lGItu32eaS6dmgH7 XLZ4Dqf8hPK0Ct1mvDCk Mz0pTb0eJx4ixMZkNT59 qb6vRbGbPwOfERH8XORy vMX9FeA+CjxkYzpk FXZwHsh4jkGkZbRdrP1M CRUnDqndxB0bBVZzDDCb MBJnZKQ2RcWlFbD0Totb wpIjOwywQzu5V6Py ZjpTZXE+YovcMZN7DDP3 XS8KEQ3eAGE1PPDhS8Yv cHRpb24+FonwRNM6QPOk V6QdlICxr67juB4r uaX2mT1uPKXndEAoFk6a tsTsQGZaKrLwE39lO7gy eK5pYoWyBtCsFYB6WWZe yLU3YrN+Pnh2pLI5 P4YpVKAqITA9WP7fAAIb QFScLWMdPPP4XsAcYbP2 PucayR7eSxJaUTF0QLQn dGU+CjwvcmRmOkRl n3KnfLY3tV0vAry4F5Ij ZjpSREY+NzstsIx1oNKe ZXRhPjw/eHBh (more content not included)... Normal [facility] Coding Summary.on 10-11-2021 Coding Summary. CD:[id number]:[id number] Gh0bWw+PGhlYWQ+PE1FV FMqB57hjFKajK8GM3qXT G7CNIWOTUJCTO4ODF9ri ZF7IPccY7SvqeOg GcmdmNHbON09SRk4JSU9 dKpnVSwlaY9wiZQlV2n0 IoRsAX48bG48KCcbSNNd IvW7TtHsdqkvvOBc S0rtHcJpoTKnBtc+PHRh YmxlIHdpZHRoPScxMDAl UaPazFavQQ7vSo6zPJXa LWNvbGxhcHNlOiBj y1ayUSIvPBlrSD6ziUuc N2JvoUS8PSPmr8k9Yi71 dHI+JEOvMPI4dPlvCAtg a023XlYtb9ywIAV6 dKPpOTutTVE6Z11tf6O7 TECfJTSgILB3aLI0tX7b tUilqoroQ3DxnAHyCjW1 QNY9rBUpyE8ltMss rqfvxI8nCeq+E94IFS5W IPLVGI1DPou6Q1YrToux dHI+OL27VSQxJY39pJDc lYQae5xpbAc6PjBv QWNpOLB6bKmpFLwmp4My BGZiN92jbOFdx5Y7YVPv oDpplQQkRhKkdML5uH1f DLctqjirb6loheyd Zpdcp0vtjm00yA00M44o UBziJLFkFQB3RCPjYGQg oHsngy0qsH7sDe5+IDxj i0gzf3jvdHz4WrWx PDSwpjCdyXvbOUS4x2Ms Se74F8EeuRgam4DcEvs4 dy59rMWxk2B1jKK0RAwe EPRmmX8aZFdiKpH2 NPYwFfGwbY96kESyHVav Bo5nqNmfiMgzGM4eEIYw kkluBHYyyW9nXRVumLBo uIwtVX2hLZYoeoeu m002ClGrQHN8MSGntGVh P3ExsY3mBfOeSRHqWJEs L6AgaGUmNXutQ663HTyq PvO8BLPdluApQ4Vs AMHbyExrNgA0k7F0Cw2C l1KpuladDRU6OVemURKq AqMoGhLvFkA5B0OgFox2 FSIgqAyvPD5dL7Lu MBSjiloibnwedSI5JYEs HJCblC96aYAtKNbfTr6r o2Q7s732ZTUiFDWldS49 Uo9osGpvJVGusWHF fV9lllokt7rqovffErUa UGLsCYr8NPq6VZOrrQwz KzAxTIB6LaK7MND4yTDi cX7jaZgknqabxF6l Oyc+D83dcR1lMFT0EDC0 whsdBHVkqrKrFZ12OL61 A1JoYimtgDOvrUE+PGRp jaPoxIyuQP0uDiJr v7eyx0NkSLqcX5GsVZBv HCwwGxg8EVObRFC9oYB0 tF9kDKYxUUdvn3R3sRT8 Z0KfjuKbbc7id3qq DFTrDGtmI61hyNImu8L8 ZANghRQ5RUKhbEedSjGo aC44Ato+RWBxdDmyv8Fp Yscar4cvn9swtZt9 IjMwJSIgdmFsaWduPSJ0 v8YaFj86O29xASkzAXJh ALZuQPXaDTEawSwelr2s vN3mCr8+PGNvbCB3 cSG9cW2jMYStQfB4FNfd G577KlLjlYIeXyqhi3sh z8rawAh6AoWzKFIrdnOv pXiwSJL6d5HdUf10 J65nRBrvSWGcCSZaCXDp VRFftYapta0ubH3wTu9+ RY9wh3sjfz93bB78sAO+ ITWkIHR0sTgsXNbp EBMknF6jZKinNkB9GBEx VcDizS87xCDfEGpsEt4o yLyfkOfbNV8dRTYnpsmg k514MeMpb8qnLCYz gQHsXBpvOXQ2Y28at0G6 FPBqVSEmAHN1mMJ1gP9b bGlnbjogbGVmdDsgdmVy yTkjEMvuVLirH140 IHRvcDsnPlBhdGllbnQg SbNjFNd0Y0JiBfh1CDSk mInyQL4gvDGfLWrtSh6u jJtloOfeKG3sWLTg uxvwt300OqApt2aiZDAz zOIuDUkvJUY5O38bt9R9 OXOyXLAkYFQ2yOV3rG1q bGlnbjogbGVmdDsg ozHplOwkGEcnYHegN514 IHRvcDsnPkJpcnRoIERh nUQ9LQ52VZ61wMSps8R1 lPI2D6LaRQFiqilw pgpcgJU2TIHbRFGdxP59 Fz9nuRzbCq8mLZAcYXY8 GVNvvRQdW6VwnT3vDyEm QXPaNWOlC6PkfPYv SOrsK883IIyjXnF4LIBb ljSnF6LuDMUqiUqsHuN5 k7X4Hn0QO8R3BM29IF70 lVEyb5N7lEQ5Y8Pn WCEwrezuhadbtCF4ZAJe KZWjiG11Rx3taRavHr2y EIVwQHN0UBVarGIzB5Lv lU0mDvFwRGMzGWSw A6PwmBShBTyyK540TSmw RfZ8ZTSxwwAoZ8QtSWTn iLseIgO6y2E2Rq4KIQi2 SS89LT02mZVhv3Q5 wEJ7F4JgRDXvktgpevlr sDK4UHVsYZZvtN88Qe6g tDjrNt7nRKGyRHB3PVUo fYYxD3OmmC7pElXh RLMlUBZuV7McpJXmZWfw J587OBctHdF1UJFajjGp C2AtMDVcwAfuRoN5m8S6 Ar3BEWWxDB44GVQ3 pDI5KR95VQ57W0ZiYuyc dGFibGU+PHRhYmxlIHdp ZHRoPScxMDAlJyBzdHls LK5eUa3jUVBlSYPh gPkoaYAtVtWld9egAPSm QOfdSV8gaChuL3CywZP3 BERcq1p8Ei48M82qX6Jq dXA+KOUswTH5wXW1 sM0mYdByUmL3DDwwZ442 HlAskOBvMpubp8cmk0vn qLe5WuU6LMAdjpCheWyv ROJ7z3ZgYz15W42z IHdpZHRoPSIxNSUiIHZh cTjysp2jgJ9tRx1+PGNv wOB8cTU0mR5wGcStFsF4 QAeqU818RrDgyVQk Sungn0cui3odtZl3AmQg CXChvbGupIorGQL3z8Qh Pl79L5XhoAyif8PwDwb5 tm99jVRqr6E0cWY0 U4ZqKCCovstntWKgfMhe ZC5sBBYlkkqkGHBciY5r BKZlG2u2OmHjGtF3BWbo T7ZxulP2PKZvyRUl YDmaHHP8X17fs4D2KRTz PHEuCME7wFD8nF5ooTho bjogbGVmdDsgdmVydGlj JSyuXSryE355UWIz qHhkNTCnvI9hCDOcmOCl yHuxBA4sVQIslxzqYlVI O7LOVggdY0xPMrKRIE1h QTwvdGQ+PHRkIHN0 xXonEWafWZSdfQ4dCAXg Y4r1DgIkNsJ0ZErsX0Th MSOxyqmdWi40tR4yUxRc SnS1HQtrE2XuilC1 NDXozURxPWwhEPK7J72h l1F2YALeNFKwOTD6cZO9 rP8buIaytbprqHHnmGwg dmVydGljYWwtYWxp S735ZGUobDfbEvY0FfQ4 ElP7INO6I4EoEsw3XNLk mHocTN3qvSBmUUkxYj0p pVkwtZrrYT0hSHNq vyiqFCUnzM7uZQKggRLn cBwuNO4aQWGzhobdi337 YhDxPVQ7GSEyoNWoH7Wj xT3cBaMtACWwRJJw R0QkvBBkUCbwY955QEzo VlX2CGLjqpBpZ5RoGLTi wXmhCkG9o7T5Dt7jLHNL ZWFyczwvdGQ+PHRk HSW1aQhrJKvlBKMeqH2x EAKuF7e1TxMoDpY0DPht V0UcAMUwccjgCz10iD1u FtZcAoG2UWfeT0Jz vvU3EWSapHYzLZohEAI3 Y21pc2F0WZCcLZWoSHP3 lIZ6kT0bzKwcnztzeXMu dDsgdmVydGljYWwt GHswJ855JBOaoCjePkEn bWFsZTwvdGQ+PHRkIHN0 cAdxKCcoVHAvhL5jFBVp D5u5WiTsSrX6EZoc C4EaTWEfnofiEh81vB6m HxHoVfQ1OSccJ1PvrgV8 CPWpxLUsSAbmHSX0J63o u5T6ASOoXIFcAKC4 kFK0wG5pyTkzpwtaaMMe dDsgdmVydGljYWwtYWxp V591OTUdxAqkUnBvW2Tc cmluZzwvdGQ+PC90 fr41M4XaPkgoHyl4SIMd MRK7gFU8nK1cCCZsNUsh j8F9aGQ0I1FrniLnes3n z8osLONvEFjpF21b mXTjp1F0NJTuxFX8TVXu cMjxExIklS01Isx+PGNv kKgmn2JyNbgde6ttr7mz hPb1NyTqUVUijdTw qPnbWGN4t1JvPl38H79n IHdpZHRoPSIzMCUiIHZh lCerfa0ztQ7wWk8+PGNv aVT4yRW9yO8pNoFe RqX9JOxhL601JlOtoROo Tpwpy7hwk4gzpEq6NlLw LIZgxvDruVqlHPU8j9Zl Zx63G2GdqKadq2Jf Kag8gp39bQSfr7U8dDE1 R0ZiHZHsdumfjUMiqMjl QU1iAZFivdnyQHRdyN0c SDDwR2q1TmGeTwF0 VEbjD9ZmuvR6PZZaoYDa ZLNnpYPVwE9snniug0fq wrzrNeMvTWJxXOs7SHu6 LWFsaWduOiBsZWZ0 GhW9ETT0mVAdwR9buQjl sipctC5eFza+BGp2x7ez sGEuQM6hrSI1SV60FN42 yEKqf0A3sFP5V7Jw HVKyhsekwrrafHS0TTMc BAErgC84Mr1syKklUi2m LEUeYEQ5NLFjaPLjQ9Zo sU4aQrWbGJLhLJQn Q7ErkQFpJNuoS620YMww TkA0YRLhktErA5CrXDEc dUphVzF3z4C4Sk0OCI85 ZD84ZW87rXWds2K5 nFH6M5KwPLCuplplstao wXE1CLXyFDYptO63Nm2e xMvrBu9bFIYvAKG6IXTf lTDcV3MnoS7bTzIn JOSlDPHjP6NmnOUhASmz G479BHsfTyW0DIDihaYn J2DeDMIolAfoZnB2f7N1 Ve6DGc05GR55YZ16 bKYsd7V3bNF1T6AjBAIl ijqqumlmhXX5OQJqCQNu aD17Wu5uiLzeMb2wMRPq PAB0IODexMBkI9Tx wC4dNaLfYBYyNMSoG1Uh tPTsPItzT598WBrfPgA0 TDUxjzUuO6NoZDTveCbl RlQ9z5N7Jp8EXTjl bld9D8RlUddgyPT+PC90 LSFpHR95aESnxEPbp6dd gSj9YmPwHGBwBTT9pNti LZrnv1BeLLIsS17y bGFw (more content not included)... Normal [facility] Consent for Treatmenton Consent for Treatment [id number] 4#1.00CD:127 Normal [facility] Physician Orderon 10-11-2021 Physician Order [id number] #1.00CD:127 Normal [facility] Rapid COVID Antigen ([facility])on 10-11-2021 Rapid COV Int NEG Ctl Pass Normal [facility] Comment on above: Performed By: #### 2 [id number] ####[facility] [id number] [place] [address] Rapid COV Int POS Ctl Pass Normal [facility] Comment on above: Performed By: #### 2 [id number] ####[facility] [id number] [place] [address] SARS-CoV+SARS-CoV-2 (COVID-19) Ag IA.rapid Ql (Resp) Not detected Normal Not Detected [facility] Comment on above: Result Comment: The [employer]? System for Rapid Detection of SARS-CoV-2 is a chromatographic digital immunoassay intended for the direct and qualitative detection of SARS-CoV-2 nucleocapsid antigens in nasal swabs from individuals who are suspected of COVID-19 by their healthcare provider within the first five days of the onset of symptoms. Negative results should be treated as presumptive, do not rule out SARS-CoV-2 infection and should not be used as the sole basis for treatment or patient management decisions, including infection control decisions. Negative results should be considered in the context of a patient?s recent exposures, history and the presence of clinical signs and symptoms consistent with COVID-19, and confirmed with a molecular assay, if necessary, for patient management. For in vitro diagnostic use. In the [place], only for use under an Emergency Use Authorization. In the [place], this test has not been FDA cleared or approved; this test has been authorized by FDA under an EUA for use by authorized laboratories; use by laboratories certified under the CLIA, 42 U.S.C. ?263a, that meet requirements to perform moderate, high, or waived complexity tests and at the Point of Care (POC), i.e., in patient care settings operating under a CLIA Certificate of Waiver, Certificate of Compliance, or Certificate of Accreditation. This test has been authorized only for the detection of proteins from SARS-CoV-2, not for any other viruses or pathogens; and, in the [facility], this test is only authorized for the duration of the declaration that circumstances exist justifying the authorization of emergency use of in vitro diagnostics for detection and/or diagnosis of the virus that causes COVID-19 under Section 564(b)(1) of the Act, 21 U.S.C. ? 360bbb-3(b)(1), unless the authorization is terminated or revoked sooner. Performed By: #### 2 [id number] ####[address] [address] Employed in Healthcare NO [facility] Comment on above: Performed By: #### 2 [id number] ####[address] [place] [address] First Test Unknown [facility] Comment on above: Performed By: #### 2 [id number] ####[address] [place] [address] Hospitalized? NO Normal [facility] Comment on above: Performed By: #### 2 [id number] ####[address] [place] [address] ICU NO [facility] Comment on above: Performed By: #### 2 [id number] ####[address] [facility] [place] [address] ? Unknown [facility] Comment on above: Performed By: #### 2 [id number] ####[address] [facility] [address] Resides in a Congregate Care Setting NO [facility] Comment on above: Performed By: #### 2 [id number] ####[address] [place] [address] Symptomatic as defined by CDC YES Normal [facility] Comment on above: Performed By: #### 2 [id number] ####[address] [place] [address] Coding Summary.on 09-18-2021 Coding Summary. CD:[id number] Gh0bWw+PGhlYWQ+PE1FV MWdK86jwNYcwQ2RR6nKL Y7VJPXDHPYNBA5HDR9ml SS1XUisE1AkcwUx OsahtTMsJC00QTw5AHD1 bOjvXRrakF2gcYFiV9f5 HiVyHP76dW05DGcqHFNr IrG3GrYddldcpJRo Y4zhWdKqjEOhMri+PHRh YmxlIHdpZHRoPScxMDAl NbAzbPfiJT5mCq3bKLOu LWNvbGxhcHNlOiBj k9tyWGUwQBmxWH8eeYdk D5KrlNZ1SXIvn3l0Ik75 dHI+ESVnPKZ5jZryDKap l107StAid0vcUNH9 lTSmJIedIPF9B02rb8A1 IACqSBCuHDC5eHS9kB7l mYkpginbL8NsxFVlJeK7 GBH2uFPvlM1zwBnq yppvhP6aRyr+H48KOQ8H COFIAC3UIqk7G6DxEpox dHI+WF54NNJmJN92cIAv jOGve8jmdAd4OgXy MLVcQKQ7jGlqXXfld3Nc GZBcE54vrJZwu2T2BXHx uZamaRJuNjOfgPH1dJ3r VBijkyyvo4nxsjnh Hotii6svga47aJ96U81q TLttJCPcYGO7CPXeNKPi dQghhs5bwI3wYk1+IDxj t9hoy3qlkGv5YmZy KUVczgCaqNocAKI1b6Ax Nv76K2DowLjzh0TsLgj2 hz19tAEal4X7pFN1JSej FVMtmU4mGNfoMwJ5 PSPsQzPxsD94cHFvQVvo Gi6udJoxmHzwOY3dLMIe grdfWZPzbQ6pLLIrxLIi mBzfIE3cFZLqnyba d540IbZzJLY4GIZzbPZg M1NqtD5rObReGEHrXNXq C4ChpJXzWEdmE966RUqd DsU9SRKpenAfJ9Yn TMKihKtmFwC0b0W4Jl0A w9FhwearRWJ0SMcmYYDt RzT9QoXcNaT6Z8JzWtd1 OREmnJueVT7sD3Ck SCVumfiqbctoxBT7QTVf KAYrlF46tEKhAYgmSt9p k2E7q387EGUtYXVcmI08 Zc8poAwsFOLclVAA zA3qgxqai1luixgoLmKi WHFgPSq1MRh2WFScvZpw RtEbFWT0YgX9DBQ5cDEg mI3dcQjugtgxuN1x Oyc+V54xjP6xHTK3XGF5 xjqoBCUpqlXfNF91SS72 F8DmWfmogIMhhUF+PGRp bmSsmNgnSI5dArAk q5igj9HpNFogB3KiEJZf QQmpCrm6MHLlZSQ5qLI9 hK3dKXXhRNrem3G5tBM2 F3QmbfLads8xp0fu ZCFhTTkiR10zeETwv7I5 FQYygGP7YOTfvBzhTfRq dN82Isx+XOEpyIgzx7Gz Siajy6nzz3irjBc5 IjMwJSIgdmFsaWduPSJ0 z8UtLi50T39oOZfgXCIb EXNsGEIxCAPreIlnnd7y jV9rRf0+PGNvbCB3 iSM4qE5zZJGjJuH3USve Y114AaUrzPLqDtqdr2rs j4huoFt8YrDwKFAojuDl rGgfTOK2j8RiHg56 O29xXQowLSNmOJWlFCBa PVIisNpkig3pfP1zDg3+ NK1we5htfz87aO90fPI+ CMSvPOY1jAdtQFhh CQDoiE7gKYdaHsY7OHAt WlBtgR54jFUvLFojLm5c tAoreBrmGV3tMUFuhpmp k639SnQce0maMXEx gVXkWRmxUJF6D92pw0N2 TGPgTKXvQOZ5gEF4jN2v bGlnbjogbGVmdDsgdmVy xAlbLBlqNTnlX497 IHRvcDsnPlBhdGllbnQg JrSaKSh9J6OlEsh4GYCs wJzfUP5rjXUwOZurYn2r tRxmzIhgBH0kETSr msync838AfFhp2smQOHz gELnBKpfMEQ5G94hi4B6 CEWqUIQzCTP7dFF3xC5k bGlnbjogbGVmdDsg tlEzfGveNEctODavA195 IHRvcDsnPkJpcnRoIERh xZI9JV85HH39yFPiw7L0 nDX6I6OlYAHwvidj cwoyuLB9IXQhGSMjtH41 Aj8foKxdVh0hSXNeLDK9 ZSFgvFFvM1XhwT7aQsCk FRCsNUIqH5FitVTg ECcxN234JFekViZ1RLXj beFzC5GwHXHgnUgfAhI2 o3W7Nn1MW7B7AH29HU30 nMQrt2W3fWB3P9Pq ZOPvlmdeijpslCL5GPWt YNObbN44Ih0inSscNe8p PBJyHOB8LRSrvQMnY6Yg hW4xAmCjWEOxPULp I6XqiFElPFczO868KGqj OxP4IXBnchVrI8NqUSIo uYooJiO9q2S9Jo1UTXt9 VU35KX60sSXss6B6 hTM7T0FqRNQptjjefeqk sGZ2XIBiQBLkeN17Ug1c aGtmGd5qDEWoMMR9PGNf dOZvQ4DzmA8qUaJy DVEwCTGoA8JwfDUvJCzb S944QHfjFbD3DOOwiaTq C9MuLCUziOhfHdB4c5H5 Dw8AXVSkEN34TDB5 iSS5UA92CO41G2MwArmb dGFibGU+PHRhYmxlIHdp ZHRoPScxMDAlJyBzdHls LB7jMt3vBWOlNECd bFoolWDyTgKtn6fvXURk OZefTP5mfMatF3OboTB9 MRKms5u7Wu74F11aW4Ui dXA+ARXiaUC9dYU2 bL1oFnXhKnI1JRbeV385 QtAvjJDxHvhqn7iew9io aDj8HfO5TMKbtuSelIez YBW4l8AdMt11S24j IHdpZHRoPSIxNSUiIHZh pGhlto7vpK6bXd5+PGNv rHH2mFI1qF9jSwJeEqL2 CAlcQ957ViSjgXWb Cbxnb5mvs6sjzNd9FzGz PONsjaEsjYcoSFH4n1Oy Zw76V5CpdKclp9PxQmy4 nc01hTUkk8S4bES8 B6RjQDErtlvswJOjbUju TQ4vSQXfixdcUTVtnJ9p CSJsG5r8NmCxPxC9XZgy U4HdlgC5KVEmnXAq VRalXLX6O35nu2W2CTWl WEIlMXE6hPN1cE8dqVgc bjogbGVmdDsgdmVydGlj QKfhGBgwI443RVSg gFxyLQYkzF1kJEZiuZTg iXhgHT2aNWNplkpeHpFP D2QKNomkV0fBNxLLFP9o QTwvdGQ+PHRkIHN0 aSynYMzdULLolP4wOEKu I4j1ZwDuNaA0OUuqW8St SZHozruwIq52uZ8vJkRs EyL5SColM6BjxwC3 UBXenKQdHIdeATN8E41x o7J4JPFoTGPuQWR6hKX6 wY2xaJviipmjsOQzhSiv dmVydGljYWwtYWxp D082AMPquVwbGwO1MdZ4 TrE0GVJ6B9ZtScz6EBFr pCqlDT9xgZYiAKndOw4w jRzrjFdiSO6tZWHl dtolQTZtvI5pCHZiyFDd kPskGW0mQKRqcdaok998 ArPsLIX4FFQnwYIiL2Uq mG6oKuTtPKUzBMVy P1TshQNzDEmiG166KRhs IqO9KCMgmaRwI9AuLCBv vJhzLoW7d1O3Ro2gNMHP ZWFyczwvdGQ+PHRk UUF4gNusRAooIZUejX4a MBZuX3f9GeBoCiI3EEvi G5TnSGPhsgctBd93yF2d AaSsBwW5ZYebJ1Sc tjL9BHOrgBMnDQdeBJR3 K99nl3W2NJAjQSAzONK2 sRO6hZ6wcTmaawmawRJh dDsgdmVydGljYWwt YQztU797QZXlfMgmMoTu bWFsZTwvdGQ+PHRkIHN0 tTqpAUlpMCVnxX9rOQCp K0j0NjWvSwI2VZci M5DuSSFlimphPy05bW4h JqUbQqW1MUalK2PnlhY6 CMJkwIOcLDjhSRM1P19i a0O5UIIhQCPwXSP6 jDZ9eX4pvEuidscdnXYm dDsgdmVydGljYWwtYWxp Q365YMNucGnkGvNbJVDk XG1qwOncsGF+PC90 tl51C4RiHmxbLpy1XSDe EDU6qDZ4vJ7lFHIyHGvz t7D5nEL7M4FuegQlip8k p9akNCJsLTalT00y mVIvt4W6QZPbfJE5AOTg uYqiReVeqD47Nxh+PGNv fVkha9SbIocvq4dfv2eo cEs3AiUtHHWzijVe fSynMZM3l7MkIz32J80v IHdpZHRoPSIzMCUiIHZh tTotkk6jwW6tHv2+PGNv iVH5xHM7zI4iFlDo QlS5CKnzW825VxEibBAl Dusai0gjx9fyoTd7ZyCm FNFduiKkwPeoGLO0x6Gc Uu60M5ZclMdbp6Ws Jhm7cg30sEBam1A4vMX0 P7BsSSQvibrcwPXwnMot JQ1tTOUlwnzyHMQcbX0d STJlV5i2UyAuWhQ9 LMvgD0XlyxH9URZvcVFy LGGviVFBfS5jrxkxu2nz qyknMsSlMYMdACm0NIg3 LWFsaWduOiBsZWZ0 ZzD4KQU2sVUliD5mlEse myjggT2wHik+MUm7s3ef fKWfVQ3qlEQ6WR33AM57 nXQsp5Q1jOT6S0Sn TXXbqpabqaaupEL2SCRg VQLbjD90Cc3biNeqVu4v VDCnHGR9LUJttOLzZ0Vf fR0uTbFcEMArYRPx G8HlcVIqEBdfO808UJpr DuD2QEVmypJfV3IsSBJk jJycJjS7t3Z9Np2ABF84 MD95ME26oXDtp7X3 gXY0D5LfGPAjxffufbec wNB5ZETzGXLqtI58Ye7h tYwtLg9kBIVcLES5ZLOr uPEpK1LdkP1qNjRa QBMzNFOeJ8ZciPPhIJel E862KDecOeZ5OMVwkjEc N5TbOWHwjUhrAhM2n8O3 Tf2JGa34LH31QE53 xRNdm8U9hZG0R9IqXLOr smfhuynjzEB8BHTqRZSe lK69Np5flEdsKz4mFEYi TTG4HPTsdNIiO0Ea hV4eKdDiMQBfYXWhB9Yv vBBwSBjlC668YUupRuI0 XGCtqiTcS8FeBELtwLne LwH8p5S5Bg9POPta kss9K5KzFxcrhGK+PC90 GJRsWT42hHSvdPEft4bk pVt5MmPdPWGdGLO6yGmx MPeni3BmJBHaX77t bGFw (more content not included)... Normal [facility] Discharge Instructionson Discharge Instructions [id number] 4#1.00CD:127 Normal [facility] ED Clinical Summaryon 2020 ED Clinical Summary [place] [address] ED Clinical Summary Person Information Name: HALEY SWANN [facility] Age: 26 Years : 1995 Sex: Female Language: Argentine PCP: Yomi aTfoya MD Marital Status: Single Visit Id: Visit Reason: Vaginal bleeding - < 20 wks ; Abdominal pain - ; VAG BLEEDING 7 WEEKS PREG Speciality: Acuity: 3 Enc Type: Emergency Med Service: Emergency Arrival: 09/17/2021 19:04:40 Discharge: 09/17/2021 22:37:09 LOS: 000 03:33 Checkin: 09/17/2021 19:04:40 Checkout: 09/17/2021 22:37:09 Dispo Type: Home (Routine DC) EVENTS: Event Name Event Status Request Date/Time Start Date/Time Complete Date/Time Arrive Complete 09/17/2021 19:04:40 09/17/2021 19:04:40 09/17/2021 19:04:40 Document Home Meds Request 09/17/2021 19:04:40 Triage Complete 09/17/2021 19:04:40 09/17/2021 19:31:13 09/17/2021 19:31:13 Registration Complete 09/17/2021 19:07:49 09/17/2021 19:07:49 09/17/2021 19:07:49 Reg Complete Request 09/17/2021 19:07:49 Reg Bed Request Complete 09/17/2021 19:07:49 09/17/2021 19:07:49 09/17/2021 19:07:49 Bed Assign Complete 09/17/2021 19:34:11 09/17/2021 19:34:11 09/17/2021 19:34:11 Dr Exam Complete 09/17/2021 19:34:12 09/17/2021 19:34:32 09/17/2021 19:34:32 RN Exam Complete 09/17/2021 19:34:12 09/17/2021 19:48:55 09/17/2021 19:48:55 Registration Complete 09/17/2021 19:34:32 09/17/2021 19:51:38 09/17/2021 19:51:38 Dr Exam Complete 09/17/2021 19:34:38 09/17/2021 19:34:38 09/17/2021 19:34:38 Dr Exam Complete 09/17/2021 19:34:43 09/17/2021 19:34:43 09/17/2021 19:34:43 US Complete 09/17/2021 19:37:57 09/17/2021 21:10:38 09/17/2021 22:31:59 Pending Labs Request 09/17/2021 19:37:57 Blood Collect Request 09/17/2021 19:37:57 Lab Request 09/17/2021 19:37:57 Urine Collect Request 09/17/2021 19:37:57 Pending Labs Complete 09/17/2021 20:01:21 09/17/2021 20:01:21 09/17/2021 20:18:30 Lab Complete 09/17/2021 20:01:21 09/17/2021 20:01:21 09/17/2021 20:18:30 Pending Labs Complete 09/17/2021 20:12:26 09/17/2021 20:12:26 09/17/2021 20:12:31 Lab Complete 09/17/2021 20:12:26 09/17/2021 20:12:26 09/17/2021 20:12:31 Discharge Complete 09/17/2021 22:13:56 09/17/2021 22:37:15 09/17/2021 22:37:15 US Complete 09/17/2021 22:14:47 09/17/2021 22:17:41 Transfer Complete 09/17/2021 22:37:15 09/17/2021 22:37:15 09/17/2021 22:37:15 ADDRESS: [address] [place] [address] [id number] PHYS DOC NOTES: MEDICAL INFORMATION: Prescriptions Given: New Medications Printed Prescriptions Misc Prescription (Quantitative beta hCG) 0. Quantitative beta hCG To Be Drawn on 09/19/[address] Garzon DX: Threatened miscarriage. Refills: 0. Medications to Continue with No Changes Other Medications albuterol (Pro-Air HFA CFC free 90 mcg/inh MDI) 1 Puffs Inhalation Once as needed for wheezing. famotidine (Pepcid 20 mg Tab) 1 Tablets By Mouth 2 times a day. Refills: 0. sertraline (sertraline 50 mg oral tablet) PATIENT EDUCATION INFORMATION: Instructions: Threatened Miscarriage Follow up: With: Address: When: Radha GARZON [facility], [address] [place] [address] [place] [address] Business (1) In 3 days 09/20/2021 DIAGNOSIS: Threatened miscarriage Normal [facility] ED Note-Physicianon 09-18-20 ED Note-Physician Basic Information Time Seen: Juwan Peralta PA-C 09/17/2021 19:34 Chief Complaint pt. presents to the ed with c/o vaginal bleeding that started last friday. Pt. is about 7 weeks and supposed to see Dr. Breaux out of [place]. Pt. had covid about two weeks ago. History of Present Illness Pt is a 26 y/o female who presents to the ED with complaints of painful vaginal bleeding x 4 days. Pt is 7 weeks and states she starting having mild vaginal spotting on . It improved Friday morning but then returned Friday evening. Pt states that Friday, the bleeding got heavier and she began having pelvic pain. She had called her OB, Dr. Breaux, who informed her that she was likely okay and she did not need to be seen in the office. When pt got up this morning, she felt like things took a turn for the worse and she is now having almost constant bleeding with many blood clots. She is still experiencing the pelvic pain but it comes and goes. She described the pelvic pain as crampy and currently rates it 6/10. She states she is a little bit dizzy and has a mild headache but headaches are common for her. Pt denies nausea, vomiting, fever, chills, vaginal discharge between spotting, vaginal rashes or lesions, and SOB. Pt has had constipation for 3 days and her last BM was this morning. Also states she sometimes feels like she has to pee but then can't. Pt has had one previous and had no issues with the . She states that she has had 3 positive test. She denies other medical conditions. Pt had Covid 2 weeks ago. Review of Systems Constitutional: no fever, no chills, no sweats, no weakness Skin: no rash, no lesions, (+) eczema Respiratory: no shortness of breath, (+) mild cough, no wheezing Cardiovascular: no chest pain, no palpitations, no edema Gastrointestinal: no nausea, no vomiting, no diarrhea, (+) constipation, (+) abdominal cramping, no hematochezia Genitourinary: no dysuria, no hematuria, no discharge, (+) vaginal bleeding, (+) urgency Musculoskeletal: (+) low back pain, no trauma Neurologic: (+) headache, (+) dizziness, no numbness, no tingling Additional ROS info: Except as noted in the above Review of Systems and in the History of Present Illness all other systems have been reviewed and are negative or noncontributory. Physical Exam Vitals & Measurements T: 37.0 ?C (Oral) HR: 88(Peripheral) RR: 18 BP: 157/90 SpO2: 98% HT: 160 cm HT: 160.0 cm WT: 102.5 kg WT: 102.5 kg BMI: 40.04 General: Pt is alert, oriented, and in no acute distress. Skin: warm, dry Head: no trauma, normocephalic Eye: normal conjunctiva, sclera clear, PERRLA ENMT: oral mucosa moist, no pharyngeal erythema or exudate Cardiovascular: regular rate and rhythm, normal peripheral perfusion, no murmur, gallop, or rub Respiratory: Lungs CTA, respirations non labored, no wheezing or rhonchi Gastrointestinal: soft, non distended, (+) tenderness to palpation of suprapubic region (most tender) and RLQ; no tenderness of RUQ, LUQ, or LLQ, no guarding, no rigidity Back: (+) mild tenderness to right (most tender) and left lower back, no CVA tenderness bilaterally, Normal ROM, Normal alignment. Extremities: no deformity, no trauma Neurological: alert and oriented, no focal deficits, speech normal Psychiatric: cooperative, affect appropriate for age, normal judgement Medical Decision Making Patient seen and evaluated with physician assistant associate professor student. I had a vofc-sy-zbez interaction with the patient. I personally performed the physical exam and medical decision making. I have verified the documentation by the student is accurately representing the information obtained. Patient presents for evaluation of vaginal bleeding. She estimates she is currently 7 weeks based on home test and last menstrual period. She is a 1 previous without complication. She presents with intermittent but worsening vaginal bleeding over the last week. She had associated lower abdominal pain. On exam her abdomen is soft and relatively nontender to deep palpation. Her quantitative hCG is over 18,000. She was sent for ultrasound which is discussed with laser/electro optics technician. Findings most consistent with inevitable miscarriage. Lot of bloody debris noted on ultrasound. No clear gestational sac. Results are discussed the patient. She will be set up for repeat quantitative hCG in 2 days. She is to follow-up with [facility]. She is resting comfortably. Declined any pain medications. Of note she is Rh+. Patient was encouraged to return to the ED if symptoms worsen or change. Assessment/Plan Threatened miscarriage (O20.0: Threatened ) Ordered: [facility] [place] Prescription, Quantitative beta hCG, Quantitative beta hCG To Be Drawn on 09/19/[address] Garzon DX: Threatened miscarriage, Print Requisition, Supply Orders: ABO/Rh Automated Diff Basic Metabolic Panel Beta hCG Quantitative CBC w/ Auto Diff eGFR UA With Cult Reflex US (more content not included)... Normal [facility] Comment on above: Result Comment: Elec tronically Signed By: Juwan Peralta PA-C\.br\Date and Time Signed: 09/17/21 22:14 EST\.br\Electronically Co-Signed By: Roe Ewing DO\.br\Date and Time Co-Signed: 09/17/21 23:27 EST ED Patient Education Noteon 09-18-2021 ED Patient Education Note Obstetrics and Gynecology Threatened Miscarriage A threatened miscarriage occurs when a woman has vaginal bleeding during the first 20 weeks of but the has not ended. If you have vaginal bleeding during this time, your health care provider will do tests to make sure you are still . If the tests show that you are still and that the developing baby (fetus) inside your uterus is still growing, your condition is considered a threatened miscarriage. A threatened miscarriage does not mean your will end, but it does increase the risk of losing your (complete miscarriage). What are the causes? The cause of this condition is usually not known. For women who go on to have a complete miscarriage, the most common cause is an abnormal number of chromosomes in the developing baby. Chromosomes are the structures inside cells that hold all of a person's genetic material. What increases the risk? The following lifestyle factors may increase your risk of a miscarriage in early : ? Smoking. ? Drinking excessive amounts of alcohol or caffeine. ? Recreational drug use. The following preexisting health conditions may increase your risk of a miscarriage in early : ? Polycystic ovary syndrome. ? Uterine fibroids. ? Infections. ? Diabetes mellitus. What are the signs or symptoms? Symptoms of this condition include: ? Vaginal bleeding. ? Mild abdominal pain or cramps. How is this diagnosed? If you have bleeding with or without abdominal pain before 20 weeks of , your health care provider will do tests to check whether you are still . These will include: ? Ultrasound. This test uses sound waves to create images of the inside of your uterus. This allows your health care provider to look at your developing baby and other structures, such as your placenta. ? Pelvic exam. This is an internal exam of your vagina and cervix. ? Measurement of your baby's heart rate. ? Laboratory tests such as blood tests, urine tests, or swabs for infection You may be diagnosed with a threatened miscarriage if: ? Ultrasound testing shows that you are still . ? Your baby?s heart rate is strong. ? A pelvic exam shows that the opening between your uterus and your vagina (cervix) is closed. ? Blood tests confirm that you are still . How is this treated? No treatments have been shown to prevent a threatened miscarriage from going on to a complete miscarriage. However, the right home care is important. Follow these instructions at home: ? Get plenty of rest. ? Do not have sex or use tampons if you have vaginal bleeding. ? Do not douche. ? Do not smoke or use recreational drugs. ? Do not drink alcohol. ? Avoid caffeine. ? Keep all follow-up visits as told by your health care provider. This is important. Contact a health care provider if: ? You have light vaginal bleeding or spotting while . ? You have abdominal pain or cramping. ? You have a fever. Get help right away if: ? You have heavy vaginal bleeding. ? You have blood clots coming from your vagina. ? You pass tissue from your vagina. ? You leak fluid, or you have a gush of fluid from your vagina. ? You have severe low back pain or abdominal cramps. ? You have fever, chills, and severe abdominal pain. Summary ? A threatened miscarriage occurs when a woman has vaginal bleeding during the first 20 weeks of but the has not ended. ? The cause of a threatened miscarriage is usually not known. ? Symptoms of this condition may include vaginal bleeding and mild abdominal pain or cramps. ? No treatments have been shown to prevent a threatened miscarriage from going on to a complete miscarriage. ? Keep all follow-up visits as told by your health care provider. This is important. This information is not intended to replace advice given to you by your health care provider. Make sure you discuss any questions you have with your health care provider. Document Released: 10/27/2006 Document Revised: 12/03/2018 Document Reviewed: 01/23/2018 Elsevier Patient Education ? 2020 [employer] Normal [facility] ED Patient Summaryon 021 ED Patient Summary [place] [id number] Patient Discharge Instructions Person Information Name: HALEY SWANN Age: 26 Years Arrival Date: 09/17/2021 19:04:40 Discharge Diagnosis: Threatened miscarriage Primary Care Physician: Yomi Tafoya MD Provider Information Primary Provider: Roe Ewing DO Advanced Rayon Coner:Juwan Peralta PA-C The exam and treatment you received in the Emergency Department were for an urgent problem and are not intended as complete care. It is important that you follow up with a doctor, nurse practitioner, or physician?s assistant associate professor for ongoing care. If your symptoms become worse or you do not improve as expected and you are unable to reach your usual health care provider, you should return to the Emergency Department. We are available 24 hours a day. HALEY SWANN has been given the following list of patient education materials, prescriptions and follow-up instructions: Follow-up Instructions: With: Address: When: Radha GARZON [facility], [address] [place] [address] [place] [address] Business (1) In 3 days 09/20/2021 In the event that this physician does not participate in your insurance network, please consult with your insurance company to find a nearby participating provider. Patient Education Materials: Threatened Miscarriage A MESSAGE TO ALL PATIENTS REGARDING OPIOIDS PRESCRIPTION OPIOIDS: WHAT YOU NEED TO KNOW Prescription opioids can be used to help relieve hglminet-ic-vqlekd pain and are often prescribed following a surgery or injury, or for certain health conditions. These medications can be an important part of the treatment but also come with serious risks. It is important to work with your healthcare provider to make sure you are getting the safest, most effective care. WHAT ARE THE RISKS AND SIDE EFFECTS OF OPIOID USE? Prescription opioids carry serious risks of addiction and overdose, especially with prolonged use. An opioid overdose, often marked by slowed breathing, can cause sudden . The use of prescription opioids can have a number of side effects as well, even when taken as directed: ? Tolerance?meaning you might need to take more of the medication for the same pain relief ? Physical dependence?meaning you have symptoms of withdrawal when a medication is stopped ? Increased sensitivity to pain ? Constipation ? Nausea, vomiting, and dry mouth ? Sleepiness and dizziness ? Confusion ? Depression ? Low levels of testosterone that can result in lower sex drive, energy, and strength ? Itching and sweating RISKS ARE GREATER WITH: ? History of drug misuse, substance use disorder, or overdose ? Mental health conditions (such as depression or anxiety) ? Sleep apnea ? Older age (65 years and older) ? Avoid alcohol while taking prescription opioids. Also, unless specifically advised by your health care provider, medications to avoid include: ? Benzodiazepines (such as Xanax or Valium) ? Muscle relaxants (such as Soma or Flexeril) ? Hypnotics (such as Ambien or Lunesta) ? Other prescription opioids KNOW YOUR OPTIONS Talk to your health care provider about ways to manage your pain that don?t involve prescription opioids. Some of these options may actually work better and have fewer risks and side effects. Options may include: ? Pain relievers such as acetaminophen, ibuprofen, and naproxen ? Some medication that are also used for depression or seizures ? Physical therapy and exercise ? Cognitive behavioral therapy, a psychological, goal-directed approach, in which patients learn how to modify physical, behavioral, and emotional triggers of pain and stress. IF YOU ARE PRESCRIBED OPIOIDS FOR PAIN: ? Never take opioids in greater amounts or more often than prescribed. ? Follow up with your primary health care provider. o Work together to create a plan on how to manage your pain. o Talk about ways to help manage your pain that don?t involve prescription opioids. o Talk about any and all concerns and side effects. ? Help prevent misuse and abuse o Never sell or share prescription opioids. o Never use another person?s prescription opioids. ? Store prescription opioids in a secure place and out of reach of others (this may include visitors, children, friends, and family). ? Safely dispose of unused prescription opioids: Find your community drug take-back program or your pharmacy mail-back program, or flush them down the toilet, following guidance from the Food and Drug Administration (www.fda.gov/Drugs/R esourcesForYou). ? Visit www.cdc.gov/drugover dose to learn about the risks of opioids abuse and overdose. ? If you believe you may be struggling with addiction, tell your health rn care manager and ask for guidance or call [facility] [employer] (more content not included)... Normal [facility] Prescriptions/Work Noteson 1 11-18-2020 Prescriptions/Work Notes [id number]#[id number]:127 Normal [facility] US 1st Trimesteron 09-18-2021 US 1st Trimester Exam Date/Time: 09/17/2021 22:31 EST Reason for Exam: Vaginal bleeding Report IMPRESSION: NO INTRAUTERINE GESTATIONAL SAC. PROBABLE INTRAUTERINE BLOOD CLOTS. CLINICAL HISTORY: Vaginal bleeding. LMP: 07/25/2021 CATHI from LMP: 05/01/2022 Gestational Age by LMP: 7 weeks, 5 days Probable intrauterine growth COMPARISON: None COMMENT: Transabdominal and transvaginal images were obtained. The uterus measurements and an estimated volume are: Uterus Length: 10.5 cm Uterus Width: 4.5 cm Uterus Height: 4.4 cm Uterus Volume: 109.9 cm3 The uterus is otherwise unremarkable. There is no intrauterine gestational sac. Endometrium is somewhat thickened and heterogeneous. Echogenic material seen in the intrauterine cavity. There is some fluid in the uterine cervix. The right ovary measurements and estimated volume are: Right Ovary Length: 2.1 cm Right Ovary Width: 2.1 cm Right Ovary Height: 2.7 cm Right Ovary Volume: 6.3 cm3 The left ovary measurements and estimated volume are: Left Ovary Length: 2.2 cm Left Ovary Width: 2.2 cm Left Ovary Height: 1.5 cm Left Ovary Volume: 3.9 cm3 No large cysts and no adnexal mass are noted. There is no free fluid in the cul-de-sac. There is some color flow into the both ovaries. FINAL REPORT Dictated: 09/18/2021 8:29 am Chris Oro M.D. Signed (Electronic Signature): 09/18/2021 8:29 am Signed by: Chris Oro M.D. Transcribed by: PIO Technologist: INDIRA Technical Comments LMP : 07-25-21 History 2 Para 1 Transabdominal Ultrasound Performed Transvaginal Ultrasound Performed Normal [facility] US Transvaginalon 09-18-2021 US Transvaginal Exam Date/Time: 09/17/2021 22:17 EST Reason for Exam: Vaginal Bleeding Report Please refer to the report of ultrasound of on 09/17/2021. FINAL REPORT Dictated: 09/18/2021 8:30 am Chris Oro M.D. Signed (Electronic Signature): 09/18/2021 8:30 am Signed by: Chris Oro M.D. Transcribed by: PIO Technologist: INDIRA Normal [facility] ABO/Rhon 09-17-2021 ABO/Rh Positive Invalid Interpretation Code [facility] Comment on above: Performed By: #### 2 [id number] ####[place] [address] [place] [address] Auto Diffon 09-17-2021 Basophils/100 WBC (Bld) 0.5 % Normal 0.0-2.0 [facility] Comment on above: Order Comment: Order Added by Discern Expert. Performed By: #### 2 [id number], [id number], [id number], [id number] ####[address] [address] Basophils/Leukocytes Auto (Bld) [Pure # fraction] 0.1 E9/L Normal 0.0-0.2 [facility] Comment on above: Order Comment: Order Added by Discern Expert. Performed By: #### 2 573993, [id number], 3632385, [id number] ####[place] [place] [address] Eosinophils/100 WBC (Bld) 2.1 % Normal 0.0-8.0 [facility] Comment on above: Order Comment: Order Added by Discern Expert. Performed By: #### 2 843997, [id number], 9052749, 2292212 ####[facility] [address] [place] [address] Eosinophils/Leukocyt es Auto (Bld) [Pure # fraction] 0.2 E9/L Normal 0.0-0.5 [facility] Comment on above: Order Comment: Order Added by Discern Expert. Performed By: #### 2 890647, [id number], 2116259, 6900080 ####[facility] [address] [place] [address] Lymphocytes/100 WBC (Bld) 34.5 % Normal 14.0-50.0 [facility] Comment on above: Order Comment: Order Added by Discern Expert. Performed By: #### 2 111916, 65550935, 6352603, 4825649 ####[address] [place] [address] Lymphocytes/Leukocyt es Auto (Bld) [Pure # fraction] 3.7 E9/L Normal 1.0-4.0 [facility] Comment on above: Order Comment: Order Added by Discern Expert. Performed By: #### 2 382745, 44660713, 7383223, 0717210 ####[address] [address] Monocytes/100 WBC (Bld) 5.0 % Normal 4.0-14.0 [facility] Comment on above: Order Comment: Order Added by Discern Expert. Performed By: #### 2 944206, 94660555, 1745095, 8081458 ####[address] [address] Monocytes/Leukocytes Auto (Bld) [Pure # fraction] 0.5 E9/L Normal 0.2-1.0 [facility] Comment on above: Order Comment: Order Added by Discern Expert. Performed By: #### 2 113046, 31782544, 8835761, 3331267 ####[address] [address] Neutrophils/100 WBC (Bld) 57.9 % Normal 36.0-75.0 [facility] Comment on above: Order Comment: Order Added by Discern Expert. Performed By: #### 2 786994, 80732947, 8536136, 1166910 ####[address] [address] Neutrophils/Leukocyt es Auto (Bld) [Pure # fraction] 6.1 E9/L Normal 2.0-7.5 [facility] Comment on above: Order Comment: Order Added by Discern Expert. Performed By: #### 2 362742, 34830151, 0623714, 8333679 ####[facility] [address] [place] [address] BMPon 09-17-2021 Creatinine [Mass/Vol] 0.7 mg/dL Normal 0.5-1.3 [facility] Comment on above: Performed By: #### 2 048648, 11654224, 6286595, 2345124 ####[facility] [address] [place] [address] Urea nitrogen [Mass/Vol] 8 mg/dL Normal 5-21 [facility] Comment on above: Performed By: #### 2 054796, 49551665, 4935011, 0565059 ####[facility] [address] [place] [address] Urea nitrogen/Creatinine [Mass ratio] 11 No Units Normal 10-20 [facility] Comment on above: Performed By: #### 2 016487, [id number], 2880372, 8669023 ####[facility] [address] [place] [address] Anion gap [Moles/Vol] 15 mmol/L Normal 6-16 [facility] Comment on above: Performed By: #### 2 096156, 38309917, 9095122, 3574457 ####[facility] [address] [place] [address] Calcium [Mass/Vol] 9.3 mg/dL Normal 8.9-11.1 [facility] Comment on above: Performed By: #### 2 336857, 87714586, 4361249, 4178957 ####[facility] [address] [place] [address] Chloride [Moles/Vol] 100 mmol/L Low 101-111 [facility] Comment on above: Performed By: #### 2 148595, 43759239, 6539044, 8785946 ####[facility] [address] [place] [address] CO2 [Moles/Vol] 23 mmol/L Normal 21-31 [facility] Comment on above: Performed By: #### 2 629449, 54118577, 7602982, 8836632 ####[facility] [address] [place] [address] Glucose [Mass/Vol] 98 mg/dL Normal 55-199 [facility] Comment on above: Result Comment: If t his glucose result represents a fasting glucose, interpretation should refer to the following reference range: 55-99 mg/dL Performed By: #### 2 290822, 60292714, 2240173, 6847670 ####[facility] [address] [place] [address] Potassium [Moles/Vol] 3.7 mmol/L Normal 3.5-5.3 [facility] Comment on above: Performed By: #### 2 973233, 26909723, 5659282, 5321078 ####[facility] [address] [place] [address] Sodium [Moles/Vol] 134 mmol/L Low 135-145 [facility] Comment on above: Performed By: #### 2 247036, 29370963, 5593118, 0101804 ####[facility] [address] [place] [address] BhCG Quanton 09-17-2021 [place] [address] m[IU]/mL High 1-3 F [facility] Comment on above: Result Comment: GEST ATIONAL AGE HCG RANGE (mIU/mL) NON- <1-3 0.2-1 WEEKS 5-50 1-2 WEEKS 50-500 2-3 WEEKS 100-5,000 3-4 WEEKS 500-10,000 4-5 WEEKS 1,000-50,000 5-6 WEEKS 10,000-100,000 6-8 WEEKS 15,000-200,000 8-12 WEEKS 10,000-100,000 Performed By: #### 2 634257 #### [facility] [address] [place] [address] CBC w/ Auto Diffon Erythrocyte distribution width (RBC) [Ratio] 14.8 % High 10.9-14.2 [facility] Comment on above: Performed By: #### 2 876872, 73502982, 7661275, 3695080 #### [facility] [address] [place] [address] Hematocrit (Bld) [Volume fraction] 37.9 % Normal 34.0-46.0 [facility] Comment on above: Performed By: #### 2 936685, 21308285, 1860570, 8338778 #### [facility] [address] [place] [address] Hemoglobin (Bld) [Mass/Vol] 12.4 g/dL Normal 12.0-16.0 [facility] Comment on above: Performed By: #### 2 731173, 10842814, 2898222, 3700506 #### [facility] [address] [place] [address] MCH (RBC) [Entitic mass] 27.4 pg Normal 27.0-34.0 [facility] Comment on above: Performed By: #### 2 339217, 21486069, 2774981, 8181508 #### [facility] [address] [place] [address] MCHC (RBC) [Mass/Vol] 32.6 g/dL Normal 31.4-36.0 [facility] Comment on above: Performed By: #### 2 129145, 15167730, 6782330, 9722445 #### [facility] [address] [place] [address] MCV (RBC) [Entitic vol] 83.8 fL Normal 80.0-100.0 [facility] Comment on above: Performed By: #### 2 [id number], [id number], [id number], [id number] #### [facility] [address] [place] [address] Platelet mean volume (Bld) [Entitic vol] 8.5 fL Normal 6.4-10.8 [facility] Comment on above: Performed By: #### 2 [id number], [id number], [id number], [id number] #### [facility] [address] [place] [address] Platelets (Bld) [#/Vol] 237.0 E9/L Normal 150.0-500.0 [facility] Comment on above: Performed By: #### 2 [id number], [id number], [id number], [id number] #### [facility] [address] [place] [address] RBC (Bld) [#/Vol] 4.5 E12/L Normal 4.3-5.9 [facility] Comment on above: Performed By: #### 2 [id number], [id number], [id number], [id number] #### [facility] [address] [place] [address] WBC corrected for nucl RBC Auto (Bld) [#/Vol] 10.6 E9/L Normal 4.0-11.0 [facility] Comment on above: Performed By: #### 2 [id number], [id number], [id number], [id number] #### [facility] [address] [place] [address] Consent for Treatmenton Consent for Treatment [id number] #1.00CD:127 Normal [facility] eGFRon 09-17-2021 GFR/1.73 sq M.predicted among blacks MDRD (S/P/Bld) [Vol rate/Area] mL/min/{1.73_m2} Normal >=59 [facility] Comment on above: Order Comment: Order added by Discern Expert. Result Comment: eGFR is race adjusted. AA=. Performed By: #### 2 [id number], [id number], [id number], [id number] ####[facility] [address] [place] [address] GFR/1.73 sq M.predicted among non-blacks MDRD (S/P/Bld) [Vol rate/Area] mL/min/{1.73_m2} Normal >=59 [facility] Comment on above: Order Comment: Order added by Discern Expert. Result Comment: Construction Area Manager bryant kidney disease could be indicated at eGFR's of less than 60 mL/min/1.73m2. Kidney failure is indicated at less than 15 mL/min/1.73m2. Performed By: #### 2 615286, [id number], [id number], [id number] ####[facility] [address] [place] [address] ED Note-Physicianon 07-29-20 ED Note-Physician Basic Information Time Seen: Juwan Peralta PA-C 07/23/2021 21:27 Chief Complaint Pt. presents to the ed with c./o left index finger from a knife, pt. states it's about a half inch. History of Present Illness 26-year-old female comes into the ED for evaluation of a finger laceration. Just prior to arrival the patient was cutting pizza when she lacerated the distal aspect of her left index finger with a knife. She presents with the area wrapped in a paper towel. There is no active bleeding. She does not know the date of her last tetanus booster. Review of Systems A 10 point review of systems is negative except as noted above. Medical and Surgical History: Reviewed and noted Social history: Lives at home Tobacco: Current Physical Exam Vitals & Measurements T: 37.0 ?C (Oral) HR: 83(Peripheral) RR: 18 BP: 135/91 SpO2: 96% HT: 160 cm HT: 160.0 cm WT: 102.5 kg WT: 102.5 kg BMI: 40.04 Nurses notes and vital signs reviewed and patient is not hypoxic. General: The patient appears well, resting comfortably. Skin: Warm, dry. Laceration as described below Head: Atraumatic. Neck: No JVD. Eye: Normal conjunctiva. Ears, Nose, Mouth, and Throat: Moist mucous membranes. Cardiovascular: Strong distal pulses. Chest wall: Respiratory: Respirations are nonlabored. Back: Normal range of motion. Musculoskeletal: 2 cm flap-like laceration to the distal aspect of the left index finger. This is long the pad of the digit. There is no involvement of the nail. No active bleeding or drainage. Full range of motion of flexion extension. No exposed bone. No foreign bodies. Gastrointestinal: Urological: Neurological: Awake and alert. No focal deficits. Follows commands. Psychiatric: Cooperative. Procedure Laceration repair Confirmed: Patient, procedure, side, and site correct. Description/ repair Laceration 2 cm in length. Distal left index finger . Shape: Flap-like Depth: subcutaneous. Details: clean. Neurovascular/ tendon exam: intact. Anesthesia: 5 cc 1% lidocaine digital block Preparation: sterile field established, skin prepped with betadine. Irrigation: copious. Debridement: Explored with no foreign bodies noted. Skin closure: # 5 sutures, with 4-0 Nylon, simple technique, interrupted technique. Complexity: single layer. Post procedure exam: Circulation, motor, sensory examination intact. Complications: None. Patient tolerated: Well. Performed by: Medical student with supervision. Total time: 20 minutes. Medical Decision Making Patient's laceration was repaired. See procedure note. She is discharged home with PCP follow-up and instructions to suture movement 7-10 days. Her tetanus has been updated. Patient was encouraged to return to the ED if symptoms worsen or change. Assessment/Plan Finger laceration (S61.219A: Laceration without foreign body of unspecified finger without damage to nail, initial encounter) Orders: lidocaine, 10 mg, 1 mL, Injection, SubCutaneous, Once, Stop date 07/23/21 21:36:00 EDT, STAT, Start date 07/23/21 21:36:00 EDT tetanus/diphtheria/p ertussis, acel (Tdap), 0.5 mL, Injection, Intramuscular-Immuni zation, Once, Stop date 07/23/21 21:36:00 EDT, STAT, Start date 07/23/21 21:36:00 EDT Disposition Plan Patient Discharge Condition Disposition: Discharged home Condition: Improved and stable Counseled: Patient and/or family were counseled to workup, results, treatment plan and follow-up recommendations Discharge Prescription List Prescriptions No active prescription medications Follow-up With When Contact Information Yomi Tafoya In 3 days 07/26/[address] [place] [phone] Business (1) Additional Instructions: stitches to be removed in 7-10 days Patient Education Laceration Care, 7-10 ([id number]) Attestation Patient seen and evaluated by the physician assistant associate professor. Attending physician was present in the emergency department and supervised care. This report was transcribed using voice recognition software. Every effort was made to ensure accuracy, however, inadvertently computerized medical appointment scheduler mistakes may be present. Appropriate healthcare PPE was used in evaluating this patient. The patient was placed in a mask. The healthcare provider was wearing mask, gloves, googles and utilizing proper hand hygiene. All equipment was properly cleansed. Problem List/Past Medical History Ongoing Asthma BMI 36.0-36.9,adult Smoker Historical No qualifying data Medications Inpatient No active inpatient medications Home Pepcid 20 mg Tab, 20 mg= 1 tab(s), Oral, BID Pro-Air HFA CFC free 90 mcg/inh MDI, 1 puff(s), Inhalation, Once, PRN sertraline 50 mg oral tablet, Not taking Allergies No Known Allergies Social History Alcohol Current, 1-2 times per month, 07/23/2021 Current, Liquor, 1-2 times per month, 02/15/2021 Substance Abuse Current, Marijuana, 07/23/2021 Current, Marijuana, 1-2 times per week, 0 (more content not included)... Normal [facility] Comment on above: Result Comment: Elec tronically Signed By: Juwan Peralta PA-C\.br\Date and Time Signed: 07/23/21 21:57 EDT\.br\Electronically Co-Signed By: Indra Grimm MD\.br\Date and Time Co-Signed: 07/28/21 22:13 EDT Coding Summary.on 07-24-2021 Coding Summary. CD:[id number] Gh0bWw+PGhlYWQ+PE1FV PZyD21aiRXqnD3UP5rUG H4TWZNZNAKSHZ3EOP8dx AM0YJefA2RvqrTn YegbpFKqWS50XOl2TRF2 xRbuFCksfM1jvOOhF9y8 DvYvCD06sG90FNdgKTHq GvT2MyUtryyskFQz B3pxOhKteWUsXyy+PHRh YmxlIHdpZHRoPScxMDAl BbPirTstIJ0eKd9sNOJq LWNvbGxhcHNlOiBj b6iiIDHrRNudBF6jvZlx M6UegWP2QEDqx8o4Qo41 dHI+KOEvMMR0eCsfBHnu s604UjHdm8nmHQZ1 cKLlLHdwIGH7F50ns7V2 WUDyVNTdTVH0nQK0lM4w mDmuzvvqG1SjeXDbLcP3 HIC7zCAofU2zrOwd faxiyI7bVla+B11BPQ6K GQINUA7DWnp3A9LcHxol dHI+TD67XFNeEM10tOTa lZUjj1pgdOi4WlKz MWNsOJP0mNwbLStod7Fw YTFpR68eqOZwz0G9ATCq sVwrtLIaMmLsjJA2vR8a ZWoyuxlxr7dgissq Ejcru2aeqs64rU31M45m NJcoMHBeAIK7UVCuGFNs fKijvk1neJ3pJe6+IDxj j2jws0ciqGl2HfUb RBArtvXebOldFAN0i4Wf On52Y6OcqAnlq0QiFcq8 ns81dYRuc4Q7fAU0FEle QZLikY7aWEzcExL8 HTDmAuGovH05iBPcRBrh Hv1cgOsscIwwBN3gJPJe yabyHURicP4uUWKqqHZi jHskKA3zSXKvcona e326NyJeSGT3WGJwaGLv X0CisO0oJgKtRKFrEIYb E5ArpCLiFMmxI463HUws AcK0GRCcjhJjF9Kd NKDbaRvmYrU6r8U0Eq4P w0DuqhskHXP3PEcuFXW2 CeK4KbGvZyE2D0ByMsi3 SQEacLcyUC9hA0Im SAAfvzlzzfpohKR3KRFt DFOwnM43gZYmVVxqGs0e a9E5k618HRPiESQyaE54 Tn6hwXjfJVOkcXAG hP2efriiw2ohhsgcZxCc UYXeHWe9GFl6VOEiaGgd CzMeTZM9JcQ0AQQ8rYYn vK3hfVeculypqB6c Oyc+B84rdB7bMGE3YVJ1 eznaDJTdgvQbCO51GA62 B9HqZlcheTPhvVH+PGRp lbAahUhyYV2yAkLt z6qfn3VoQBlsE4OxXSUi GGwiXpu7HUSxKRY7vLL2 pT3gSCBgWReob9Q5eCP6 C4GywmFajy9ku5au FZQiNKphU21hbMDqd0N5 IAAkySB2HULncWwpWaLu dG10Jyj+PVTmqHdai5Hr Cenbl7gzq3zmrVz9 IjMwJSIgdmFsaWduPSJ0 q2FaVf87K92bVEomNXBn NSVgHRPcQEZnwJgefh9h gU9xVe5+PGNvbCB3 jYK5hD6sXGNjZxQ6SNss H806BkZpmRBfMegep3og d3erlIo4ClFoFIVdbeTs mWjgGIM4m1NlKz61 Y02wUQvrSFAvRBDgEPAk NNOmtDgime5leX2pSw2+ KD5pu8gfgz28wH96uBF+ JTKvHLN4cKixRCyf HLWutK2yWEtjQuP9TCBl DyTeyC64mJXnRWleBa2w iVhlfRiqYO0kEIPvedqw l647NcXxi1xgUVJf tMCtTDlvPDN9B99oy3S5 SOPlTGRlMYG6vGY7yL9k bGlnbjogbGVmdDsgdmVy uLztEFddCEocP146 IHRvcDsnPlBhdGllbnQg BtPhVAh1C7KgVsv7PPVz pXweTS3zxQMbXOuzYl5p zNnsqTogPI5vAJDk kfurw762CmGsf0sqLWWr fNKiZVqfDYW3H89ap0K5 SGDiCHSsMMX3gXJ2yA8t bGlnbjogbGVmdDsg xfTfvFqvCXmmZWwlS309 IHRvcDsnPkJpcnRoIERh gCD1PU47TM24dUIbh2D5 wRR8M3YcJPRyjspb nljbrJF4XJEbNDOqcW13 Mj8taBbqDs3sUJWxJID7 LIXcnSPjX8NmmM6lObHw EAIlTXKqE2OvbKCq SZvzC623KRcdMkA6PMVr rcUdH4GmUCKazFwmLxT2 t5W2Qh2KX1A3GN83KT89 jAHgy6D4iPO2U3Jr JBHteuwreelvsXQ8SAWi QYXhhN04Lc0xrNgaEt3r MTWkCAQ1WWTulSLnR0Op kA1lArWuTMNfRHFo Z7YtvJBhYLtaL235LXsn MaW4CAPrkbKeL7DwWZZw wQhxGuQ4w1J3De3LAAx6 EZ38VR51jDNka4M5 aVI7B8QfPXNdnedztong aLU6HKUzNIXasM16Ee2a qYxgFu4iNFHqOKY6VFNr lRMvZ7MvlD8oGwIi DSRtJYKrT2LhzOQcXDuq D743CJnnYmO4TLBnqdOr G3DbPBFudNscOwV3e2A0 Su7KOYVePO14NOO0 nBD0FQ67ZU42B1EdAvly dGFibGU+PHRhYmxlIHdp ZHRoPScxMDAlJyBzdHls SE5bQj7bCRKoISQn pPdepLSsEzNjf8xqIXYc XSeuEX6evNiuV3LsuWD7 JAGxg0l1Ff92A77aV1Nq dXA+HKPyxYK8fVG1 cE9gAiBqHkJ0EJkoB823 OuJazGLeAirhp4eqs4tc oIu9NgZ3CJCnchRqnYjr OXQ3n5VeHd90W69l IHdpZHRoPSIxNSUiIHZh kCjajr2miF9fWy4+PGNv eQH8fPX5uR7aOhMvTiJ6 YHzeQ628MlTlsAKs Tsffi5qxe7athDz8MdJd PSGtibEyaZjjNGM0r1Gh Qh48Q7GckZdcc4ChDjp3 vt67iUGla3O6zFA1 A4BfGBJyhmrfiHUmsUbe JE5nZZLxhsnfGGSwlL0r KIBwP9v1QlKsLrY3WSxc Q2TfwrD4VWHexUJj DJxlSXP8A88xt7V6DPBl GHAtRGH1pYZ2vT1agPzj bjogbGVmdDsgdmVydGlj RBipIGrkH400XASd tZbzMNFunM6gEETnzGZk sDeyTO2qXDXwecfsIqIN Q8NWDqegK7uVWiJIFN7q QTwvdGQ+PHRkIHN0 lRiqJPziKCZufG5cJVZp F1s0ImMfRdX2ICyiE4Ky KDJugohcRk89fS9vCxPo FmK7UErnX5OahlO1 RVPieHBvIIuqOMV9M22k v3G0REAhYVInNMB9jWY7 nF0yuXukxdqgnMJruZlf dmVydGljYWwtYWxp Q397WTAdkScvSjH8IgM6 WuY6KQP4P0TzIge9NKUk zNjsTR9diKIqYOuvUq4d dKlhzDzoNP0tFWWu sqhuNITqwL7xCYOmsAUt zYnzVV3tWVQnbyxgh071 BfFxFQF0RBYqvYKbU7Rf kR7fSxDcQSDyIHJk A6ThgNNdQDyxR779XTms MeK2RHVepiNaL3XqNMLs xVbzLhO8m3Y1Tf5kDPZX ZWFyczwvdGQ+PHRk QAI6aSnqXKbuDKVwtA5u ESUbN3j8RaIaXnX8BGlu F5NpZSOjeqnbQv33iR6m PpNeVoW4HLvwO0Sx kiW0WVRupVGhMFblGFD4 P31qw3N5KZQmLWUiKJH2 nSR2iE4txKqlelwluXTz dDsgdmVydGljYWwt XAksD550PBGnkIkbIlBl bWFsZTwvdGQ+PHRkIHN0 fOonBPrlUPKtbG7kKLKo E6k8UpTtAgF2OAtu F3KeQUWfcpfuGi91xN4y CtIgQgF2EFdaL0WltiR7 IVOzlDPuKJfiOMX0M41b b1X6IRWfVWKmZUP1 zFH9nH6wsDykpwnqsXYc dDsgdmVydGljYWwtYWxp M546AYMlpTadKmOyXZVs XM3jkJzllSP+PC90 dl38O2SoItueUmw8ZVWd TLR4mGL6fK6gGAXbOSmd n5T4oGD8M6RunvTbrc4d x6deXPKwATkoB00p fPDzp2S7LFKwgJV3HGIr kOmlTgXtiD38Vrc+PGNv rBlys8ExLhdld0mqv9tk eVw4UcZrIQPvbcNk vDjvTXN0l4UrEk72L64o IHdpZHRoPSIzMCUiIHZh hSbads3txY4fCc6+PGNv qWR7qTV7uL0fKzXg QjU6OKshL675DxIgmSOc Yorav8ayq3musGk3PcLe WIMxbxLdlUnuYOQ0x8Sj Pk01W7IugAiiy6Tg Dkc7re74aXCtw2Y7mJS6 M4XcTFShgucypHWegIgp NV0dXYItngigDNOlxX5h PHHfW5u2YoNwAqJ0 MSndW3QftuJ1RQRxvZUu OSAfzKGKiW5hvgyub1kz fjbxPxCkDWEvLZu4PVj8 LWFsaWduOiBsZWZ0 UaQ1LAF0uPCmgP2ynCuq mjnzqU2zGmy+EHz7p6su uNFmWD4noQJ0UC10QL76 qISkc2Y6vTV2F6Nk HDNeihbgzmlqoDD5FBTr TFJwdG94Zo1yvOgfYa4y YDYgVHB7RJNzyGTlK6Xq kV4uWyLvXYHsJYFn R9BmbYDlWLzhS823LRvi RvA6ICKnooHwL8PgBCPp xPryWnD3b8G2Xy2JHV07 YG19IG10mIVzj1W7 sHD7F0TvSGRnjioxkurm cSQ4DILyILPrbL18Vx4o uJjiOr3oHESdTNP4KCHd uIBqN6KkpR2kRfWr ILFmHQQiZ4YjqYDtTUuo U612TEdoJlM2JNZdklYb M9DiPGZkgNekIwD6b0H6 Kd3IIg08TK99NJ10 lWTxh8L6fGY3T7BmZZPb drdfcnpgbAE6ASFwBJXu rP94Ov8gmTotVp7nPVBy MDA8XTEdeEGoE3Ws eD3nHwPaYUWsIVQcF6Cg ePKdGGszX705LRwuPoT6 BRFlwfUaI3YxXILmcYyt GzG2s9G0Ql1CESun wrd7H3BmUuqpeEJ+PC90 CXZpDL81rZLhsTNdd4ge yUd4AwZoYTCfHLC3tPhr XMwqs2HjXWHeL15u bGFw (more content not included)... Normal [facility] Discharge Instructionson Discharge Instructions [id number]#1.00CD:127 Normal [facility] ED Clinical Summaryon 2020 ED Clinical Summary [place] [address] ED Clinical Summary Person Information Name: HALEY SWANN [facility] Age: 26 Years : 1995 Sex: Female Language: Argentine PCP: Michelet LANDA, Yomi Corral Marital Status: Single Visit Id: Visit Reason: Finger laceration; LEFT INDEX FINGER LACERATION Speciality: Acuity: 4 Enc Type: Emergency Med Service: Emergency Arrival: 07/23/2021 20:49:47 Discharge: 07/23/2021 22:12:49 LOS: 000 01:23 Checkin: 07/23/2021 20:49:47 Checkout: 07/23/2021 22:12:49 Dispo Type: Home (Routine DC) EVENTS: Event Name Event Status Request Date/Time Start Date/Time Complete Date/Time Arrive Complete 07/23/2021 20:49:47 07/23/2021 20:49:47 07/23/2021 20:49:47 Document Home Meds Request 07/23/2021 20:49:47 Triage Complete 07/23/2021 20:49:47 07/23/2021 21:20:54 07/23/2021 21:20:54 Patient Care Complete 07/23/2021 21:19:47 07/23/2021 21:27:33 Bed Assign Complete 07/23/2021 21:23:15 07/23/2021 21:23:15 07/23/2021 21:23:15 Dr Exam Complete 07/23/2021 21:23:15 07/23/2021 21:23:48 07/23/2021 21:23:48 RN Exam Complete 07/23/2021 21:23:15 07/23/2021 21:27:24 07/23/2021 21:27:24 Registration Complete 07/23/2021 21:23:48 07/23/2021 21:24:06 07/23/2021 21:34:39 Dr Exam Complete 07/23/2021 21:27:24 07/23/2021 21:27:24 07/23/2021 21:27:24 Reg Complete Request 07/23/2021 21:34:39 Reg Bed Request Complete 07/23/2021 21:34:39 07/23/2021 21:34:39 07/23/2021 21:34:39 Meds Admin Complete 07/23/2021 21:36:12 07/23/2021 22:03:29 Dr Exam Complete 07/23/2021 21:37:42 07/23/2021 21:37:42 07/23/2021 21:37:42 Registration Request 07/23/2021 21:37:42 Discharge Complete 07/23/2021 21:56:51 07/23/2021 22:12:54 07/23/2021 22:12:54 Transfer Complete 07/23/2021 22:12:54 07/23/2021 22:12:54 07/23/2021 22:12:54 ADDRESS: [address] [place] [id number] PHYS DOC NOTES: MEDICAL INFORMATION: Prescriptions Given: Medications to Continue with No Changes Other Medications albuterol (Pro-Air HFA CFC free 90 mcg/inh MDI) 1 Puffs Inhalation Once as needed for wheezing. famotidine (Pepcid 20 mg Tab) 1 Tablets By Mouth 2 times a day. Refills: 0. sertraline (sertraline 50 mg oral tablet) PATIENT EDUCATION INFORMATION: Instructions: Laceration Care, 7-10 ([id number]) Follow up: With: Address: When: [place] [address] Business (1) In 3 days 07/26/2021 Comments: stitches to be removed in 7-10 days DIAGNOSIS: Finger laceration Normal [facility] ED Patient Education Noteon 07-24-2021 ED Patient Education Note Laceration Care A laceration is a cut or lesion that goes through all layers of the skin and into the tissue just beneath the skin. BEFORE THE PROCEDURE The laceration will be inspected by your caregiver for amount and extent of tissue damage, for bleeding, for evidence of foreign bodies (pieces of dirt, glass, etc.), and for cleanliness. Pain medications can be used if necessary. The wound will then be cleansed to help prevent infection. Sutures, arline, steri strips, or wound adhesive will be used to close the wound, stop bleeding and speed healing. Sometimes this will decrease the likelihood of infection and bleeding. LET YOUR CAREGIVERS KNOW ABOUT THE FOLLOWING: Allergies. Medications taken including herbs, eye drops, over the counter medications, and creams. Use of steroids (by mouth or creams). Previous problems with anesthetics or novocaine. Possibility of , if this applies. History of blood clots (thrombophlebitis). History of bleeding or blood problems. Previous surgery. Other health problems. RISKS AND COMPLICATIONS Most lacerations heal fully. The healing time required varies depending on location. Complications of a laceration can include pain, bleeding, infection, dehiscence (splitting open or separation of the wound edges) and scar formation. The likelihood of complication depends on wound complexity, location, and on how the laceration occurred. HOME CARE INSTRUCTIONS If you were given a dressing, you should change it at least once a day, or as instructed by your caregiver. If the bandage sticks, soak it off with a solution of hydrogen peroxide or soapy water. Twice a day, wash the area with soap and water and rinse with plain water to remove all soap. Pat (do not rub) dry with a clean towel. Look for signs of infection (see below). Re-apply prescribed creams or ointments as instructed. This will help prevent infection. This also helps keep the bandage from sticking. If the bandage becomes wet, dirty, or develops a foul smell, change it as soon as possible. Only take sxxe-ihu-tcprtxe or prescription medicines for pain, discomfort, or fever as directed by your caregiver. Have your sutures, arline, or steri strips removed in 7-10 days. Steri strips will peel off from the outer edges toward the center and will eventually fall off. Report to your caregiver if the strips are falling off and the wound does not appear fully healed. SEEK MEDICAL CARE IF: There is redness, swelling, or increasing pain in the wound. There is a red line that goes up your arm or leg. Pus is coming from wound. You develop an unexplained oral temperature above , or as your caregiver suggests. You notice a foul smell coming from the wound or dressing. There is a breaking open of the wound (edges not staying together) before or after sutures have been removed. You notice something coming out of the wound such as wood or glass. The wound is on your hand or foot and you find that you are unable to properly move a finger or toe. There is severe swelling around the wound causing pain and numbness or a change in color in your arm, hand, leg, or foot. SEEK IMMEDIATE MEDICAL CARE IF: Pain is not controlled with prescribed medication or with acetaminophen or ibuprofen. There is severe swelling around the wound site. The wound splits open and bleeding recurs. You experience worsening numbness, weakness, or loss of function of any joint around or beyond the wound. You develop painful lumps near the wound or on the skin anywhere on your body. If you did not receive a tetanus shot today because you did not recall when your last one was given, make sure to check with your caregiver when you have your sutures removed to determine if you need one. MAKE SURE YOU: Understand these instructions. Will watch your condition. Will get help right away if you are not doing well or get worse. Document Released: 10/27/2006 Document Re-Released: 10/09/2009 ExitCare? Patient Information ?2009 [employer]. Normal [facility] ED Patient Summaryon 021 ED Patient Summary [place] [id number] Patient Discharge Instructions Person Information Name: HALEY SWANN Age: 26 Years Arrival Date: 07/23/2021 20:49:47 Discharge Diagnosis: Finger laceration Primary Care Physician: Yomi Tafoya MD Provider Information Primary Provider: Indra Grimm MD Advanced Rayon Coner:Juwan Peralta PA-C The exam and treatment you received in the Emergency Department were for an urgent problem and are not intended as complete care. It is important that you follow up with a doctor, nurse practitioner, or physician?s assistant associate professor for ongoing care. If your symptoms become worse or you do not improve as expected and you are unable to reach your usual health care provider, you should return to the Emergency Department. We are available 24 hours a day. HALEY SWANN has been given the following list of patient education materials, prescriptions and follow-up instructions: Follow-up Instructions: With: Address: When: Yomi Tafoya [address] [place] [address] Business (1) In 3 days 07/26/2021 Comments: stitches to be removed in 7-10 days In the event that this physician does not participate in your insurance network, please consult with your insurance company to find a nearby participating provider. Patient Education Materials: Laceration Care, 7-10 ([id number]) A MESSAGE TO ALL PATIENTS REGARDING OPIOIDS PRESCRIPTION OPIOIDS: WHAT YOU NEED TO KNOW Prescription opioids can be used to help relieve cfivnwtu-do-fkrmcg pain and are often prescribed following a surgery or injury, or for certain health conditions. These medications can be an important part of the treatment but also come with serious risks. It is important to work with your healthcare provider to make sure you are getting the safest, most effective care. WHAT ARE THE RISKS AND SIDE EFFECTS OF OPIOID USE? Prescription opioids carry serious risks of addiction and overdose, especially with prolonged use. An opioid overdose, often marked by slowed breathing, can cause sudden . The use of prescription opioids can have a number of side effects as well, even when taken as directed: ? Tolerance?meaning you might need to take more of the medication for the same pain relief ? Physical dependence?meaning you have symptoms of withdrawal when a medication is stopped ? Increased sensitivity to pain ? Constipation ? Nausea, vomiting, and dry mouth ? Sleepiness and dizziness ? Confusion ? Depression ? Low levels of testosterone that can result in lower sex drive, energy, and strength ? Itching and sweating RISKS ARE GREATER WITH: ? History of drug misuse, substance use disorder, or overdose ? Mental health conditions (such as depression or anxiety) ? Sleep apnea ? Older age (65 years and older) ? Avoid alcohol while taking prescription opioids. Also, unless specifically advised by your health care provider, medications to avoid include: ? Benzodiazepines (such as Xanax or Valium) ? Muscle relaxants (such as Soma or Flexeril) ? Hypnotics (such as Ambien or Lunesta) ? Other prescription opioids KNOW YOUR OPTIONS Talk to your health care provider about ways to manage your pain that don?t involve prescription opioids. Some of these options may actually work better and have fewer risks and side effects. Options may include: ? Pain relievers such as acetaminophen, ibuprofen, and naproxen ? Some medication that are also used for depression or seizures ? Physical therapy and exercise ? Cognitive behavioral therapy, a psychological, goal-directed approach, in which patients learn how to modify physical, behavioral, and emotional triggers of pain and stress. IF YOU ARE PRESCRIBED OPIOIDS FOR PAIN: ? Never take opioids in greater amounts or more often than prescribed. ? Follow up with your primary health care provider. o Work together to create a plan on how to manage your pain. o Talk about ways to help manage your pain that don?t involve prescription opioids. o Talk about any and all concerns and side effects. ? Help prevent misuse and abuse o Never sell or share prescription opioids. o Never use another person?s prescription opioids. ? Store prescription opioids in a secure place and out of reach of others (this may include visitors, children, friends, and family). ? Safely dispose of unused prescription opioids: Find your community drug take-back program or your pharmacy mail-back program, or flush them down the toilet, following guidance from the Food and Drug Administration (www.fda.gov/Drugs/R esourcesForYou). ? Visit www.cdc.gov/drugover dose to learn about the risks of opioids abuse and overdose. ? If you believe you may be struggling with addiction, tell your health rn care manager and ask for guidance or call [facility] (more content not included)... [facility] Vaccinationson 07-24-2021 Vaccinations [phone] [id number]#[id number]:127 [facility] Consent for Treatmenton 07-11 Consent for Treatment [id number] #[id number]:127 [facility] Vital Signs Date Time Vital Sign Value Performing Clinician Dariel peñaloza 08-26-2024 08:49-0400 Body mass index (BMI) [Ratio] 35.15 kg/m2 Radha Garzon DO Work Phone: [facility] 08-26-2024 08:49-0400 Body weight 92.9 kg Radha Garzon DO Work Phone: [facility] 08-26-2024 08:49-0400 Diastolic blood pressure 60 mm[Hg] Radha Ryann DO Work Phone: [facility] 08-26-2024 08:49-0400 Systolic blood pressure 110 mm[Hg] Radha Ryann DO Work Phone: [facility] 08-11-2024 11:58-0400 Body mass index (BMI) [Ratio] 34.3 kg/m2 Lilli GARCIA Work Phone: [facility] 08-11-2024 11:58-0400 Body weight 90.63 kg Lilli GARCIA Work Phone: [facility] 08-11-2024 11:58-0400 Diastolic blood pressure 74 mm[Hg] Lilli GARCIA Work Phone: [facility] 08-11-2024 11:58-0400 Systolic blood pressure 116 mm[Hg] Lilli GARCIA Work Phone: [facility] Healthcare Encounters Encounter Date Encounter Type Care Provider Facility Start: 08-26-2024 End: 08-26-2024 Bamboo flowsheet Radha Ryann DO Work Phone: [facility] Start: 08-26-2024 End: 08-26-2024 Bamboo flowsheet Radha Ryann DO Work Phone: [facility] Start: 08-26-2024 End: 08-26-2024 ambulatory RADHA RYANN Not Available Start: 08-26-2024 End: 08-26-2024 Office outpatient visit 15 minutes Radha Ryann DO Work Phone: [facility] Comment on above: 33 weeks gestation o f ; Third trimester ; Nausea Start: 08-11-2024 End: 08-11-2024 Bamboo flowsheet Lilli GARCIA Work Phone: [facility] Start: 08-11-2024 End: 08-11-2024 Bamboo flowsheet Lilli GARCIA Work Phone: [facility] Start: 08-11-2024 End: 08-11-2024 ambulatory LILLI RUSH Not Available Start: 08-11-2024 End: 08-11-2024 Office outpatient visit 15 minutes Lilli GARCIA Work Phone: [facility] Comment on above: Third trimester preg esa; Screening, , for anatomic survey Start: 12-25-2022 End: 12-27-2022 Evaluation and management of inpatient DR RADHA GARZON . Facility:[facility] Start: 12-06-2022 End: 12-07-[address] RADHA GARZON . Facility:[facility] Start: 11-28-2022 End: 11-28-2022 ambulatory LILLI RUSH . Facility:[facility] Start: 10-31-2022 End: 11-01-[address] RADHA GARZON . Facility:[facility] Start: 10-25-2022 End: 10-26-[address] RDAHA GARZON . Facility:[facility] Start: 09-07-2022 End: 09-07-[address] RA LUND . Facility:[facility] Start: 08-17-2022 End: 08-18-[address] RADHA GARZON . Facility:[facility] Start: 07-30-2022 End: 07-30-[address] RADHA GARZON . Facility:[facility] Start: 06-14-2022 End: 06-15-[address] RADHA GARZON . Facility:[facility] Start: 05-06-2022 End: 05-06-2022 Patient encounter procedure MD Bo Cid Work Phone: [facility] [address] Start: 05-03-2022 End: 05-04-[address] RADHA GARZON . Facility:[facility] Start: 04-26-2022 End: 04-26-2022 Patient encounter procedure Radha GARZON [facility] Procedures Date Procedure Procedure Detail Performing Clinician Start: 08-26-2024 Urnls dip stick/tabl et rgnt non-auto w/o micrscp Radha Garzon DO Work Phone: Start: 08-11-2024 Urnls dip stick/tabl et rgnt non-auto w/o micrscp Lilli GARCIA Work Phone: Start: 12-25-2022 Delivery of Products of Conception, External Approach DR ARDHA GARZON . Start: 12-25-2022 Drainage of Amniotic Fluid, Therapeutic from Products of Conception, Via Natural or Artificial Opening DR RADHA GARZON . Start: 12-25-2022 Introduction of Othe r Hormone into Peripheral Vein, Percutaneous Approach DR RADHA GARZON . Start: 12-25-2022 Repair Perineum Musc le, Open Approach DR RADHA GARZON . Start: 05-06-2022 Plain X-ray of bilat eral hands MD Bo Cid Work Phone: Plan of Treatment Date Care Activity Detail Author Start: 09-13-2024 End: 09-13-2024 Patient encounter procedure 09/13/2024 8:30 AM EST Routine [facility] [address] [place] [id number] Lilli Rush PA [address] [place] [address] [facility] Start: 08-26-2024 End: 08-26-2024 Patient encounter procedure 08/26/2024 8:30 AM EDT Routine [facility] [address] [place] [address] Radha Garzon DO [address] [place], [place] [id number] [facility] Start: 08-11-2024 End: 08-11-2025 US for US OB ANATOMY SINGLE W US OB CERVICAL LENGTH Imaging Routine Screening, , for anatomic survey Expected: 08/11/2024 (Approximate), Expires: 08/11/2025 [facility] Work Phone: Comment on above: Expected: 08/11/2024 (Approximate), Expires: 08/11/2025 Start: 07-11-2024 Influenza vaccination Influenz a Vaccine (#1) [facility] Immunizations Immunization Date Immunization Notes Care Provider George quan 07-23-2021 tetanus toxoid, redu avery diphtheria toxoid, and acellular pertussis vaccine, adsorbed Radha GARZON [facility] Payers Date Payer Category Payer Medicaid [employer] [place] [id number] 2024-Present [address] [place] [address] [id number] 2024 Private Health Insurance [facility] MEDICAID [id number] 2024 Medicaid [id number] 1996 Unknown [id number] [id number]. 593 1996 Unknown [id number] 2.840.1.834268.3.579.2. 593 1996 Unknown [id number] 2.840.1.180986.3.579.2. 593 1996 Unknown [id number] 2.16840.1.473818.3.579.2. 593 1996 Unknown [id number] 2.16840.1.085174.3.579.2. 593 1996 Unknown [id number] 2.16840.1.977225.3.579.2. 593 1996 Unknown [id number] 2.16.840.1.038194.3.579.2. 593 1996 Unknown [id number] 2.16.840.1.546826.3.579.2. 593 1996 Unknown [id number] 2.16.840.1.422503.3.579.2. 593 1996 Unknown [id number] 2.16.840.1.012208.3.579.2. 593 1996 Unknown [id number] 2.16.840.1.474900.3.579.2. 593 1996 Unknown [id number] 2.16.840.1.120836.3.579.2. 1259 1996 Unknown [id number] 2.16.840.1.601740.3.579.2. 1259 1959 Self-pay [id number] 1958 Unknown [id number] Unknown [id number] 2.16.840.1.874030.3.579.2. 593 Social History Date Type Detail Facility Start: 07-23-2021 Tobacco smoking status Light t obacco smoker (finding) [facility] Start: 08-01-2023 End: 08-11-2024 Sex Assigned At Female [facility] Start: 1995 Sex Assigned At Female [facility] Start: 01-10-2020 Tobacco smoking stat us KYIS Smokes tobacco daily [facility] Start: 01-10-2020 History of tobacco use Cigarette Smo ker [facility] Start: 08-01-2023 End: 08-11-2024 Cigarettes smoked current (pack per day) - Reported 0.5 [facility] Start: 08-01-2023 End: 08-11-2024 Alcoholic beverage intake Current drinker of alcohol (finding) [facility] Start: 09-22-2023 Alcohol Comment 1-2 drinks les s than monthly in the past year, Caffeine intake: 2-3 cups per day coffee [facility] Start: 1995 Sex assigned at Not on file [facility] Start: 01-18-2024 [facility] History of Present illness Narrative 08-26-2024 RADHA Walton - 08/26/2024 8:30 AM EDT Note Date & Type Note Facility 08-26-2024 History of Presen t illness Narrative Reason for Appointment: Patient ID: Haley Swann is a 29 y.o. female who presents for Routine Visit Patient presents today for Return OB appointment. MEDICATIONS Current Outpatient Medications Medication Instructions metoclopramide (REGLAN) 10 mg, Oral, 3 times daily before meals, Take 1 tablet by mouth 30 minutes prior to meals 3 times daily as needed for nausea. MV-Min-Fe Fum-FA-DHA ( 1 PO) Take by mouth ALLERGIES No Known Allergies PROBLEMS Active Ambulatory Problems Diagnosis Date Noted No Active Ambulatory Problems Resolved Ambulatory Problems Diagnosis Date Noted No Resolved Ambulatory Problems Past Medical History: Diagnosis Date Anxiety Asthma (CMS/HCC) Bilateral carpal tunnel syndrome Depression (CMS/HCC) Eczema History of marijuana use Insomnia Lesion of ulnar nerve HISTORY PAST MEDICAL HISTORY SOCIAL HISTORY Past Medical History: Diagnosis Date Anxiety Asthma (CMS/HCC) Bilateral carpal tunnel syndrome Depression (CMS/HCC) Eczema History of marijuana use Insomnia Lesion of ulnar nerve Social History Tobacco Use Smoking status: Every Day Current packs/day: 0.50 Average packs/day: 0.5 packs/day for 4.6 years (2.3 ttl pk-yrs) Types: Cigarettes Start date: 01/10/2020 Smokeless tobacco: Not on file Substance Use Topics Alcohol use: Yes Comment: 1-2 drinks less than monthly in the past year, Caffeine intake: 2-3 cups per day coffee Drug use: Never FAMILY HISTORY Family History Problem Relation Name Age of Onset Hypertension Mother Cervical cancer Mother Osteoarthritis Mother Depression Mother Transient ischemic attack Mother Endometriosis Mother Hypertension Father COPD Father Hypertension Maternal Grandmother Hyperlipidemia Maternal Grandmother Diabetes Maternal Grandmother Heart disease Maternal Grandfather Hyperlipidemia Maternal Grandfather Thyroid disease Paternal Grandmother SURGICAL HISTORY History reviewed. No pertinent surgical history. REVIEW OF SYSTEMS Review of Systems: Review of Systems Constitutional: Negative. HENT: Negative. Eyes: Negative. Respiratory: Negative. Cardiovascular: Negative. Gastrointestinal: Negative. Genitourinary: Negative. Musculoskeletal: Negative. Skin: Negative. Neurological: Negative. All other systems reviewed and are negative. Hematological: Negative. Endocrine: Negative. Allergic/Immunologic: Negative. OBJECTIVE Objective: Physical Exam Constitutional: Appearance: Normal appearance. She is normal weight. HENT: Head: Normocephalic. Cardiovascular: Rate and Rhythm: Normal rate. Pulses: Normal pulses. Pulmonary: Effort: Pulmonary effort is normal. Breath sounds: Normal breath sounds. Abdominal: Palpations: Abdomen is soft. Musculoskeletal: General: Normal range of motion. Neurological: General: No focal deficit present. Mental Status: She is alert and oriented to person, place, and time. Psychiatric: Mood and Affect: Mood normal. Behavior: Behavior normal. Thought Content: Thought content normal. Judgment: Judgment normal. Vitals and nursing note reviewed. Vitals: Estimated body mass index is 35.15 kg/m as calculated from the following: Height as of 02/17/23: 5' 4 . Weight as of this encounter: 204 lb 12.8 oz. BP: 110/60 No LMP recorded. Patient is . ASSESSMENT & PLAN ICD-10-CM 1. 33 weeks gestation of Z3A.33 POCT urinalysis dipstick manually resulted 2. Third trimester Z34.93 POCT urinalysis dipstick manually resulted 3. Nausea R11.0 metoclopramide (Reglan) 10 MG tablet Return OB: Patient presents today for a routine obstetrics appointment. Patient is currently 33w4d . Patient states she is doing well but has complaints of being tired due to current . Patient has verbalizes frequent movement. labor precautions was discussed/given and patient was instructed to perform kick counts three times a day. Orders Placed This Encounter Procedures POCT urinalysis dipstick manually resulted Follow Up: Patient is to return to office in 2 week for routine OB appointment. Documented by RADHA Walton on behalf of: Radha Garzon DO documented in this encounter [facility] History of Present illness Narrative 08-11-2024 RADHA Walton - 08/11/2024 11:00 AM EDT Note Date & Type Note Facility 08-11-2024 History of Presen t illness Narrative Reason for Appointment: Patient ID: Haley Swann is a 29 y.o. female who presents for Routine Visit Patient presents today for Return OB appointment. MEDICATIONS Current Outpatient Medications Medication Instructions MV-Min-Fe Fum-FA-DHA ( 1 PO) Oral ALLERGIES No Known Allergies PROBLEMS Active Ambulatory Problems Diagnosis Date Noted No Active Ambulatory Problems Resolved Ambulatory Problems Diagnosis Date Noted No Resolved Ambulatory Problems Past Medical History: Diagnosis Date Anxiety Asthma (CMS/HCC) Bilateral carpal tunnel syndrome Depression (CMS/HCC) Eczema History of marijuana use Insomnia Lesion of ulnar nerve HISTORY PAST MEDICAL HISTORY SOCIAL HISTORY Past Medical History: Diagnosis Date Anxiety Asthma (CMS/HCC) Bilateral carpal tunnel syndrome Depression (CMS/HCC) Eczema History of marijuana use Insomnia Lesion of ulnar nerve Social History Tobacco Use Smoking status: Every Day Current packs/day: 0.50 Average packs/day: 0.5 packs/day for 4.6 years (2.3 ttl pk-yrs) Types: Cigarettes Start date: 01/10/2020 Smokeless tobacco: Not on file Substance Use Topics Alcohol use: Yes Comment: 1-2 drinks less than monthly in the past year, Caffeine intake: 2-3 cups per day coffee Drug use: Never FAMILY HISTORY Family History Problem Relation Name Age of Onset Hypertension Mother Cervical cancer Mother Osteoarthritis Mother Depression Mother Transient ischemic attack Mother Endometriosis Mother Hypertension Father COPD Father Hypertension Maternal Grandmother Hyperlipidemia Maternal Grandmother Diabetes Maternal Grandmother Heart disease Maternal Grandfather Hyperlipidemia Maternal Grandfather Thyroid disease Paternal Grandmother SURGICAL HISTORY History reviewed. No pertinent surgical history. REVIEW OF SYSTEMS Review of Systems: Review of Systems Constitutional: Negative. HENT: Negative. Eyes: Negative. Respiratory: Negative. Cardiovascular: Negative. Gastrointestinal: Negative. Genitourinary: Negative. Musculoskeletal: Negative. Skin: Negative. Neurological: Negative. All other systems reviewed and are negative. Hematological: Negative. Endocrine: Negative. Allergic/Immunologic: Negative. OBJECTIVE Objective: Physical Exam Constitutional: Appearance: Normal appearance. She is normal weight. HENT: Head: Normocephalic. Cardiovascular: Rate and Rhythm: Normal rate. Pulses: Normal pulses. Pulmonary: Effort: Pulmonary effort is normal. Breath sounds: Normal breath sounds. Abdominal: Palpations: Abdomen is soft. Musculoskeletal: General: Normal range of motion. Neurological: General: No focal deficit present. Mental Status: She is alert and oriented to person, place, and time. Psychiatric: Mood and Affect: Mood normal. Behavior: Behavior normal. Thought Content: Thought content normal. Judgment: Judgment normal. Vitals and nursing note reviewed. Vitals: Estimated body mass index is 34.81 kg/m as calculated from the following: Height as of 02/17/23: 5' 4 . Weight as of 02/17/23: 202 lb 12.8 oz. BP: No LMP recorded. Patient is . ASSESSMENT & PLAN ICD-10-CM 1. Third trimester Z34.93 Urine dip 2. Screening, , for anatomic survey Z36.89 US OB ANATOMY SINGLE W US OB CERVICAL LENGTH Return OB: Patient presents today for a routine obstetrics appointment. Patient is currently 31w3d . Patient states she is doing well but has complaints of being tired due to current . Patient has verbalizes frequent movement. labor precautions was discussed/given and patient was instructed to perform kick counts three times a day. Patient has been noncompliant, first visit today for . Patient states she is taking vitamins but no ob care to this point. Labs and US given today Orders Placed This Encounter Procedures US OB ANATOMY SINGLE W US OB CERVICAL LENGTH Urine dip Follow Up: Patient is to return to office in 2 week for routine OB appointment. Documented by RADHA Walton on behalf of: RADHA Walton documented in this encounter [facility] Healthcare Evaluation + Plan note Note Date & Type Note Facility Evaluation + Plan note No data available for this section [facility] Evaluation note Note Date & Type Note Facility Evaluation note No assessment information availa [facility] Work Phone: Evaluation note Note Date & Type Note Facility Evaluation note Diagnosis Third trimester state, incidental Screening, , for anatomic survey Encounter for anatomic survey documented in this encounter [facility] Healthcare Evaluation note Note Date & Type Note Facility Evaluation note Diagnosis 33 weeks gestation of Third trimester state, incidental Nausea Nausea alone documented in this encounter [facility] Hospital Discharge instructions Note Date & Type Note Facility Hospital Discharge instructions No data available for this section [facility] Progress note Note Date & Type Note Facility Progress note No data available for this section [facility] Chief Complaint and Reason for Visit Chief Complaint M25.50 Advance Directives No Advanced Directives Records Found Advance Directive Response Recorded Date/ Time Advance Directives No May 06 2:38pm Summary Purpose Family History No Family History Records FoundNo Family History Records FoundNo Family History Records FoundNo Family History Records Found Additional Source Comments Care Team (unrecognized sect ion and content) Team Status: Inactive Member Role Status Dates Bo Cid MD Attending Provider Active Power Distribution Engineer Relationship Specialty Start Date End Date Yomi Tafoya MD [address] [place] [address] PCP - General Family Medicine 03/18/23 Power Distribution Engineer Relationship Specialty Start Date End Date Yomi Tafoya MD [address] [place] [address] PCP - General Family Medicine 03/18/23 Power Distribution Engineer Relationship Specialty Start Date End Date Yomi Tafoya MD [address] [place] [address] PCP - General Family Medicine 03/18/23 Goals (unrecognized section and content) Goals may be documented in a n alternate section INFORMATION SOURCE (unrecogn ized section and content) DATE CREATED AUTHOR 05/07/2022 [facility] DATE CREATED AUTHOR AUTHOR'S ORGANIZ ATION 05/18/2022 [facility] DATE CREATED AUTHOR AUTHOR'S ORGANIZ ATION 01/06/2023 [facility] DATE CREATED AUTHOR AUTHOR'S ORGANIZ ATION 08/28/2024 [facility] EPIC Reason for Visit (unrecogniz ed section and content) Reason Comments Routine Visit FOR RECORDS PERTAINING TO PATIENTS WHO ARE OR HAVE BEEN ENROLLED IN A CHEMICAL DEPENDENCY/SUBSTANCEABUSE PROGRAM, SOME INFORMATION MAY BE OMITTED. This clinical summary was aggregated from multiple sources. Caution should be exercised in using it in the provision of clinical care. This summary normalizes information from multiple sources, and as a consequence, information in this document may materially change the coding, format and clinical context of patient data. In addition, data may be omitted in some cases. CLINICAL DECISIONS SHOULD BE BASED ON THE PRIMARY CLINICAL RECORDS. [employer] [facility]. provides no warranty or guarantee of the accuracy or completeness of information in this document.
== END 2024-09-21 21:56 | disposition home or self-care (01) ==
LOC: LAB 21:55
PROVIDERS: PCP Family Medicine; Visit Provider Physician Assistant
DX: Z34.93 Encounter for supervision of normal pregnancy, unspecified, third trimester (principal); Z3A.37 37 weeks gestation of pregnancy
CPT/HCPCS: 87081; 87150

== ENCOUNTER 2024-10-09 08:20 | Inpatient (IN) | payer OTHER, SELFPAY ==
[2024-10-09] VITALS (15 sets, daily range): BP systolic 126–160; BP diastolic 76–102; PULSE 60–93; TEMP 35.3–36.8
--- OUTSIDE RECORDS SUMMARY | 2024-10-09 08:24 | XMS_ITS | CCD ---
Author Organization [facility] Care Team Providers Care 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 Name Role Phone TafoyaYomi Primary Care Physician [phone] MD Bo Cid Attending Provider RYANN ., [...] REQUEST, NONE LISTED Primary Care Unavaila ble REQUEST, NONE LISTED Referring Unavaila ble RYANN ., DR [...] Michelet LANDA, Yomi Corral Primary Care Provider LILLI RUSH Attending Unavailable RYANN, RADHA Attending Unavailable VICTOR MANUELLILLI Attending Unavailable VICTOR MANUELLILLI EARLY Attending Unavailable VICTOR MANUEL, LILLI Attending Unavailable Medications Current Medications Medication Drug Class(es) Dates Sig (Normalized) Sig (Original) [id number] 200 actuat albuterol 0.09 mg/actuat metered dose [...] BID, # 30 tab(s), Refills(s) 0, Pharmacy: [facility] 1985, 160, cm, 02/15/21 22:38:00 EDT, Height/Length Dosing, 100, kg, 02/15/21 22:38:00 EDT, Weight Dosing Start Date: 02/16/21 Status: Ordered metoclopramide 10 mg oral tablet (13 sources) Dopamine-2 Receptor Antagonist Start: 08-26-2024 End: 10-04-2024 metoclopramide (Reglan) 10 MG tablet Indications: Nausea Take 1 tablet (10 mg) by mouth in the morning and 1 tablet (10 mg) at noon and 1 tablet (10 mg) in the evening. Take before meals. Take 1 tablet by mouth 30 minutes prior to meals 3 times daily as needed for nausea.. 90 tablet 2 08/26/2024 10/04/2024 Discontinued metroNIDAZOLE 500 mg oral tablet (3 sources) Nitroimidazole Antimicrobial Start: 09-29-2024 End: 10-06-2024 take 1 tablet by mouth in the morning metroNIDAZOLE (Flagyl) 500 MG tablet Indications: BV (bacterial vaginosis) Take 1 tablet (500 mg) by mouth in the morning and 1 tablet (500 mg) before bedtime. Do all this for 7 days. Do not drink alcohol while taking this medication. 14 tablet 09/29/2024 10/06/2024 Active MV-Min-Fe Fum-FA-DHA ( 1 PO) (16 sources) MV-Min- Fe Fum-FA-DHA ( 1 PO) [...] Translations: [OTHER ABNORMAL GLUCOSE] Onset: 10-31-2022 Episodic Immunizations and screening for infectious disease (5 sources) Encounter for screening for human papillomavirus (HPV); Translations: [Encounter for screening for infections with a predominantly sexual mode of transmission] Onset: 06-18-2022 09-27-2024 Episodic Menstrual disorders (4 sources) Irregular menstruation, [...] DISCREPANCY 3RD TRI] Onset: 12-06-2022 Episodic Other female genital disorders (2 sources) Vaginal discharge; Translations: [Other specified noninflammatory disorders of vagina] 09-27-2024 Episodic Other nutritional; endocrine; and metabolic disorders (1 source) Body mass index 30+ - obesity 06-27-2020 Chronic Other and delivery including normal (17 sources) Single live ; Translations: [ state, [...] [33 weeks gestation of ] 08-26-2024 Episodic Residual codes; unclassified (2 sources) Gestation period, 37 weeks; Translations: [37 weeks gestation of ] 09-21-2024 Episodic Residual codes; unclassified (2 sources) Gestation period, 38 weeks; Translations: [38 weeks gestation of ] 09-27-2024 Episodic Residual codes; unclassified (2 sources) Gestation period, 39 weeks; Translations: [39 weeks gestation of ] 10-04-2024 Episodic Substance-related disorders (1 source) Smoker 02-15-2021 Chronic Comment on above: Added secondary to d ocumentation in Social History. Substance-related disorders (2 sources) Drug use complicating childbirth; Translations: [Cannabis use, unspecified, uncomplicated] Onset: 01-06-2023 Episodic Unclassified (3 sources) OT SPCF DIS/COND COMPL CHILDBIRTH; Translations: [OT SPCF DIS/COND COMPL CHILDBIRTH] Onset: 09-11-2022 Past or Other Problems Problem Classification Problem Date Documented Date Episodic/Chronic E Codes: Fall (1 source) Unspecified fall, initial encounter; Translations: [UNSPECIFIED FALL INITIAL ENCOUNTER] Onset: 09-11-2022 Episodic Other female genital disorders (1 source) Other specified noninflammatory disorders of vagina; Translations: [OT SPEC NONINFLAMMATORY D/O VAGINA] Onset: 07-31-2022 Episodic Residual codes; unclassified (1 source) 24 weeks gestation of ; Translations: [24 WEEKS GESTATION OF ] Onset: 09-11-2022 Episodic Unclassified (1 source) OT SPCF DIS/COND COMPL CHILDBIRTH; Translations: [OT SPCF DIS/COND COMPL CHILDBIRTH] Onset: 09-07-2022 Results Test Name Value Interpretation Reference Range Facility Urinalysis macro (dipstick) panel (U)on 10-04-2024 Bilirubin, UA Positive Negative - 4(70) +++ mg/dL [facility] Comment on above: small Blood, UA Positive Negative - 50 Froylan/mcL [facility] Comment on above: trace-intact Clarity, UA Clear [facility] Color, UA Yellow [facility] Glucose, UA Negative Negative - 2000(110) ++++ mg/dL [facility] Interpretation and review of laboratory results Abnormal [facility] Ketones, UA Negative Negative - 160(16) ++++ mg/dL [facility] Leukocytes, UA Positive Negative - 500+++ Cuong/mcL [facility] Comment on above: large Nitrite, UA Negative Negative - Positive [facility] pH, UA 7 5 - 9 [facility] Protein, UA Negative Negative - 1999(20) ++++ mg/dL [facility] Spec Grav, UA 1.03 1 - 1.03 [facility] Urobilinogen, UA 1.0 0.2 - 12 mg/dL [facility] RECURRENT VAGINITIS (HTRX)on 09-29-2024 ATOPOBIUM VAGINAE 16.692 Abnormal [facility] ATOPOBIUM VAGINAE Detected Abnormal [facility] BVAB 2,3 (BACTERIAL VAGINOSIS ASSOCIATED BACTERIA 2, 3); MOBILUNCUS SPP 11.094 Abnormal [facility] BVAB 2,3 (BACTERIAL VAGINOSIS ASSOCIATED BACTERIA 2, 3); MOBILUNCUS SPP Detected Abnormal [facility] KENNA ALBICANS, PARAPSILOSIS, TROPICALIS 0 [facility] KENNA ALBICANS, PARAPSILOSIS, TROPICALIS Not detected [facility] KENNA GLABRATA 0 [facility] KENNA GLABRATA Not detected [facility] KENNA KRUSEI 0 [facility] KENNA KRUSEI Not detected [facility] CHLAMYDIA TRACHOMATIS 0 [facility] CHLAMYDIA TRACHOMATIS Not detected [facility] GARDNERELLA VAGINALIS 0 [facility] GARDNERELLA VAGINALIS Not detected [facility] Interpretation and review of laboratory results Abnormal [facility] MEGASPHAERA (TYPES 1, 2) 0 [facility] MEGASPHAERA (TYPES 1, 2) Not detected [facility] MYCOPLASMA GENITALIUM 0 [facility] MYCOPLASMA GENITALIUM Not detected [facility] NEISSERIA GONORRHOEAE 0 [facility] NEISSERIA GONORRHOEAE Not detected [facility] TRICHOMONAS VAGINALIS 0 [facility] TRICHOMONAS VAGINALIS Not detected [facility] Urinalysis macro (dipstick) panel (U)on 09-27-2024 Bilirubin, UA Negative Negative - 4(70) +++ mg/dL [facility] Blood, UA Negative Negative - 50 Froylan/mcL [facility] Clarity, UA Clear [facility] Color, UA Yellow [facility] Glucose, UA Negative Negative - 1999(110) ++++ mg/dL [facility] Interpretation and review of laboratory results Abnormal [facility] Ketones, UA Negative Negative - 160(16) ++++ mg/dL [facility] Leukocytes, UA Trace Negative - 500+++ Cuong/mcL [facility] Nitrite, UA Negative Negative - Positive [facility] pH, UA 6.5 5 - 9 [facility] Protein, UA Negative Negative - 2000(20) ++++ mg/dL [facility] Spec Grav, UA 1.025 1 - 1.03 [facility] Urobilinogen, UA 1.0 0.2 - 12 mg/dL [facility] STREP GP B NAAon 09-24-2024 STREP GP B ZAHRA Strep Gp B ZAHRA [facility] STREP GP B ZAHRA Negative [facility] STREP GP B ZAHRA Centers for Disease Control and Prevention (CDC) and [facility] STREP GP B ZAHRA [employer] [employer] [facility] STREP GP B ZAHRA (ACOG) guidelines for prevention of group B [facility] STREP GP B ZAHRA streptococcal (GBS) disease specify co-collection of [facility] STREP GP B ZAHRA a vaginal and rectal swab specimen to maximize [facility] STREP GP B ZAHRA sensitivity of GBS detection. Per the CDC and ACOG, [facility] STREP GP B ZAHRA swabbing both the lower vagina and rectum [facility] STREP GP B ZAHRA substantially increases the yield of detection [facility] STREP GP B ZAHRA compared with sampling the vagina alone. [facility] STREP GP B ZAHRA Penicillin G, ampicillin, or cefazolin are indicated [facility] STREP GP B ZAHRA for intrapartum prophylaxis of GBS [facility] STREP GP B ZAHRA colonization. Reflex susceptibility testing should be [facility] STREP GP B ZAHRA performed prior to use of clindamycin only on GBS [facility] STREP GP B ZAHRA isolates from penicillin-allergic women who are [facility] STREP GP B ZAHRA considered a high risk for anaphylaxis. Treatment with [facility] STREP GP B ZAHRA vancomycin without additional testing is warranted if [facility] STREP GP B ZAHRA resistance to clindamycin is noted. [facility] STREP GP B ZAHRA Performed at: - [facility] B Z[facility] [address] [place], [place] [id number] [facility] STREP GP B ZAHRA Mis Specialist: Matthew Lawrence PhD, Phone: [phone] [facility] Urinalysis macro (dipstick) panel (U)on 09-21-2024 Bilirubin, UA Positive Negative - 4(70) +++ mg/dL [facility] Comment on above: small Blood, UA Negative Negative - 50 Froylan/mcL [facility] Clarity, UA Clear [facility] Color, UA Yellow [facility] Glucose, UA Negative Negative - 1999(110) ++++ mg/dL [facility] Interpretation and review of laboratory results Abnormal [facility] Ketones, UA Negative Negative - 160(16) ++++ mg/dL [facility] Leukocytes, UA Negative Negative - 500+++ Cuong/mcL [facility] Nitrite, UA Negative Negative - Positive [facility] pH, UA 6 5 - 9 [facility] Protein, UA Negative Negative - 1999(20) ++++ mg/dL [facility] Spec Grav, UA 1.03 1 - 1.03 [facility] Urobilinogen, UA 2.0 0.2 - 12 mg/dL [facility] Urinalysis macro (dipstick) panel (U)on 08-26-2024 Bilirubin, UA Negative Negative - 4(70) +++ mg/dL [facility] Blood, UA Positive Negative - 50 Froylan/mcL [facility] Comment on above: trace-intact Clarity, UA Clear [facility] Color, UA Yellow [facility] Glucose, UA Negative Negative - 1999(110) ++++ mg/dL [facility] Ketones, UA Negative Negative - 160(16) ++++ mg/dL [facility] Leukocytes, UA Positive Negative - 500+++ Cuong/mcL [facility] Comment on above: small Nitrite, UA Negative Negative - Positive [facility] pH, UA 6.5 5 - 9 [facility] Protein, UA Negative Negative - 1999(20) ++++ mg/dL [facility] Spec Grav, UA 1.025 1 - 1.03 [facility] Urobilinogen, UA 0.2 0.2 - 12 mg/dL [facility] Urinalysis macro (dipstick) panel (U)on 08-11-2024 Bilirubin, UA Negative Negative - 4(70) +++ mg/dL [facility] Blood, UA Negative Negative - 50 Froylan/mcL [facility] Clarity, UA Clear [facility] Color, UA Yellow [facility] Glucose, UA Negative Negative - 1999(110) ++++ mg/dL [facility] Interpretation and review of laboratory results Abnormal [facility] Ketones, UA Negative Negative - 160(16) ++++ mg/dL [facility] Leukocytes, UA Positive Negative - 500+++ Cuong/mcL [facility] Nitrite, UA Negative Negative - Positive [facility] pH, UA 7.0 5 - 9 [facility] Protein, UA Negative Negative - 2000(20) ++++ mg/dL [facility] Spec Grav, UA 1.020 1 - 1.03 [facility] Urobilinogen, UA 1.0 0.2 - 12 mg/dL [facility] CANNABINOID (THC) CONFIRMATI ON, URINEon 12-31-2022 Cannabinoid Positive Abnormal [facility] Comment on above: Performed By: #### [id number] #### [facility] [address] [place] [address] Dr. Janice Almeida Carboxy THC GC/MS Conf 101 ng/mL Normal Cutoff=10 [facility] Comment on above: Performed By: #### [id number] #### [facility] [address] [place] [address] Dr. Janice Almeida CBC AUTO DIFFon 12-26-2022 BASO # 0.0 103/ul Normal 0.0-0.1 [facility] Comment on above: Performed By: #### C BC #### [facility] [address] [place] [address] Dr. Janice Almeida Basophils/100 WBC (Bld) 0.3 % Normal 0.2-2.0 [facility] Comment on above: Performed By: #### C BC #### [facility] [address] [place] [address] Dr. Janice Almeida EO # 0.2 103/ul Normal 0.0-0.7 [facility] Comment on above: Performed By: #### C BC #### [facility] [address] [place] [address] Dr. Janice Almeida Eosinophils/100 WBC (Bld) 1.3 % Normal 0.9-7.0 [facility] Comment on above: Performed By: #### C BC #### [facility] [address] [place] [address] Dr. Janice Almeida Erythrocyte distribution width (RBC) [Ratio] 14.4 % Normal 11.0-15.0 [facility] Comment on above: Performed By: #### C BC #### [facility] [address] [place] [address] Dr. Janice Almeida Hematocrit (Bld) [Volume fraction] 28.2 % Critically low 36.0-48.0 [facility] Comment on above: Performed By: #### C BC #### [facility] [address] [place] [address] Dr. Janice Almeida Hemoglobin (Bld) [Mass/Vol] 9.2 g/dL Critically low 12.0-16.0 [facility] Comment on above: Result Comment: Post Performed By: #### C BC #### [facility] [address] [place] [address] Dr. Janice Almeida IG # 0.06 10e3/ul Critically high 0.00-0.03 [facility] Comment on above: Performed By: #### C BC #### [facility] [address] [place] [address] Dr. Janice Almeida IG % 0.5 % Normal 0.0-0.5 [facility] Comment on above: Performed By: #### C BC #### [facility] [address] [place] [address] Dr. Janice Almeida LYMPH # 4.5 103/ul Critically high 1.2-3.8 [facility] Comment on above: Performed By: #### C BC #### [facility] [address] [place] [address] Dr. Janice Almeida Lymphocytes/100 WBC (Bld) 36.0 % Normal 20.5-60.0 [facility] Comment on above: Performed By: #### C BC #### [facility] [address] [place] [address] Dr. Janice Almeida MANUAL DIFF REQ NO Normal [facility] Comment on above: Performed By: #### C BC #### [facility] [address] [place] [address] Dr. Janice Almeida MCH (RBC) [Entitic mass] 27.5 pg Normal 26.7-34.0 [facility] Comment on above: Performed By: #### C BC #### [facility] [address] [address] [address] Janice Almeida MCHC (RBC) [Mass/Vol] 32.6 g/dL Normal 29.9-35.2 [facility] Comment on above: Performed By: #### C BC #### [facility] [address] [address] [address] Janice Almeida MCV (RBC) [Entitic vol] 84.4 fL Normal 81.0-99.0 [facility] Comment on above: Performed By: #### C BC #### [facility] [address] [address] [address] Janice Almeida MONO # 0.8 103/ul Normal 0.3-0.8 [facility] Comment on above: Performed By: #### C BC #### [facility] [address] [place] [address] Dr. Janice Almeida Monocytes/100 WBC (Bld) 6.3 % Normal 1.7-12.0 [facility] Comment on above: Performed By: #### C BC #### [facility] [address] [place] [address] Dr. Janice Almeida NEUT # 7.0 103/ul Critically high 1.4-6.5 [facility] Comment on above: Performed By: #### C BC #### [facility] [address] [place] [address] Dr. Janice Almeida Neutrophils/100 WBC (Bld) 55.6 % Normal 43.0-75.0 [facility] Comment on above: Performed By: #### C BC #### [facility] [address] [place] [address] Dr. Janice Almeida Platelet mean volume (Bld) [Entitic vol] 10.4 fL Normal 9.5-13.5 [facility] Comment on above: Performed By: #### C BC #### [facility] [address] [place] [address] Dr. Janice Almeida PLT 183 103/ul Normal 150-450 [facility] Comment on above: Performed By: #### C BC #### [facility] [address] [address] [address] Janice Almeida RBC 3.34 106/ul Critically low 4.20-5.40 [facility] Comment on above: Performed By: #### C BC #### [facility] [address] [address] [address] Janice Almeida WBC 12.5 103/ul Critically high 4.0-11.0 [facility] Comment on above: Performed By: #### C BC #### [facility] [address] [address] [address] Janice Almeida CBC AUTO DIFFon 12-25-2022 BASO # 0.0 103/ul Normal 0.0-0.1 [facility] Comment on above: Performed By: #### C BC #### [facility] [address] [place] [address] Dr. Janice Almeida Basophils/100 WBC (Bld) 0.3 % Normal 0.2-2.0 [facility] Comment on above: Performed By: #### C BC #### [facility] [address] [place] [address] Dr. Janice Almeida EO # 0.1 103/ul Normal 0.0-0.7 [facility] Comment on above: Performed By: #### C BC #### [facility] [address] [place] [address] Dr. Janice Almeida Eosinophils/100 WBC (Bld) 0.9 % Normal 0.9-7.0 [facility] Comment on above: Performed By: #### C BC #### [facility] [address] [place] [address] Dr. Janice Almeida Erythrocyte distribution width (RBC) [Ratio] 14.5 % Normal 11.0-15.0 [facility] Comment on above: Performed By: #### C BC #### [facility] [address] [place] [address] Dr. Janice Almeida Hematocrit (Bld) [Volume fraction] 34.0 % Critically low 36.0-48.0 [facility] Comment on above: Performed By: #### C BC #### [facility] [address] [place] [address] Dr. Janice Almeida Hemoglobin (Bld) [Mass/Vol] 11.3 g/dL Critically low 12.0-16.0 [facility] Comment on above: Performed By: #### C BC #### [facility] [address] [place] [address] Dr. Janice Almeida IG # 0.05 10e3/ul Critically high 0.00-0.03 [facility] Comment on above: Performed By: #### C BC #### [facility] [address] [place] [address] Dr. Janice Almeida IG % 0.4 % Normal 0.0-0.5 [facility] Comment on above: Performed By: #### C BC #### [facility] [address] [place] [address] Dr. Janice Almeida LYMPH # 4.4 103/ul Critically high 1.2-3.8 [facility] Comment on above: Performed By: #### C BC #### [facility] [address] [place] [address] Dr. Janice Almeida Lymphocytes/100 WBC (Bld) 37.6 % Normal 20.5-60.0 [facility] Comment on above: Performed By: #### C BC #### [facility] [address] [place] [address] Dr. Janice Almeida MANUAL DIFF REQ NO Normal [facility] Comment on above: Performed By: #### C BC #### [facility] [address] [place] [address] Dr. Janice Almeida MCH (RBC) [Entitic mass] 27.6 pg Normal 26.7-34.0 [facility] Comment on above: Performed By: #### C BC #### [facility] [address] [place] [address] Dr. Janice Almeida MCHC (RBC) [Mass/Vol] 33.2 g/dL Normal 29.9-35.2 [facility] Comment on above: Performed By: #### C BC #### [facility] [address] [place] [address] Dr. Janice Almeida MCV (RBC) [Entitic vol] 82.9 fL Normal 81.0-99.0 [facility] Comment on above: Performed By: #### C BC #### [facility] [address] [place] [address] Dr. Janice Almeida MONO # 0.8 103/ul Normal 0.3-0.8 [facility] Comment on above: Performed By: #### C BC #### [facility] [address] [place] [address] Dr. Janice Almeida Monocytes/100 WBC (Bld) 6.5 % Normal 1.7-12.0 [facility] Comment on above: Performed By: #### C BC #### [facility] [address] [place] [address] Dr. Janice Almeida NEUT # 6.3 103/ul Normal 1.4-6.5 [facility] Comment on above: Performed By: #### C BC #### [facility] [address] [place] [address] Dr. Janice Almeida Neutrophils/100 WBC (Bld) 54.3 % Normal 43.0-75.0 [facility] Comment on above: Performed By: #### C BC #### [facility] [address] [place] [address] Dr. Janice Almeida Platelet mean volume (Bld) [Entitic vol] 10.4 fL Normal 9.5-13.5 [facility] Comment on above: Performed By: #### C BC #### [facility] [address] [place] [address] Dr. Janice Almeida PLT 233 103/ul Normal 150-450 [facility] Comment on above: Performed By: #### C BC #### [facility] [address] [place] [address] Dr. Janice Almeida RBC 4.10 106/ul Critically low 4.20-5.40 [facility] Comment on above: Performed By: #### C BC #### [facility] [address] [place] [address] Dr. Janice Almeida WBC 11.6 103/ul Critically high 4.0-11.0 [facility] Comment on above: Performed By: #### C BC #### [facility] [address] [place] [address] Dr. Janice Almeida DRUG SCREEN RAPID (URINE)on 12-25-2022 AMP Negative Normal NEGATIVE [facility] Comment on above: Performed By: #### [id number] #### [facility] [address] [place] [address] Dr. Janice Almeida BAR Negative Normal NEGATIVE [facility] Comment on above: Performed By: #### [id number] #### [facility] [address] [place] [address] Dr. Janice Almeida BUP Negative Normal NEGATIVE [facility] Comment on above: Performed By: #### [id number] #### [facility] [address] [place] [address] Dr. Janice Almeida BZO Negative Normal NEGATIVE [facility] Comment on above: Performed By: #### [id number] #### [facility] [address] [place] [address] Dr. Janice Almeida MARSHALL Negative Normal NEGATIVE [facility] Comment on above: Performed By: #### 4 [id number] #### [facility] [address] [place] [address] Dr. Janice Almeida CUT-OFFS SEE BELOW Normal [facility] Comment on above: Result Comment: AMP (Amphetamine): 500ng/mL, BAR (Barbituates): 200 ng/mL, BZO (Benzodiazepines): 150 ng/mL, BUP (Buprenorphine): 10 ng/mL, MARSHALL (Cocaine): 150 ng/mL, mAMP (Methamphetamine): 500 ng/mL, MTD (Methadone): 200 ng/mL, OPI (Opiates): 100 ng/mL, OXY (Oxycodone): 100 ng/mL, PCP (Phencyclidine): 25 ng/mL, PPX (Propoxyphene): 300 ng/mL, THC (Cannabinoids): 50 ng/mL, TCA (Trycyclic Antidepressants): 300 ng/mL Performed By: #### 4 [id number] #### [facility] [address] [place] [address] Dr. Janice Almeida DRUG CUT HEADER DRUG CLASS TEST SYSTEM CUT-OFF CONCENTRATIONS ARE FOLLOWS: Normal [facility] Comment on above: Performed By: #### 4 [id number] #### [facility] [address] [place] [address] Dr. Janice Almeida mAMP Negative Normal NEGATIVE [facility] Comment on above: Performed By: #### 4 [id number] #### [facility] [address] [place] [address] Dr. Janice Almeida MTD Negative Normal NEGATIVE [facility] Comment on above: Performed By: #### 4 [id number] #### [facility] [address] [address] [address] Janice Almeida OPI Negative Normal NEGATIVE [facility] Comment on above: Performed By: #### 4 [id number] #### [facility] [address] [place] [address] Dr. Janice Almeida OXY Negative Normal NEGATIVE [facility] Comment on above: Performed By: #### 4 [id number] #### [facility] [address] [place] [address] Dr. Janice Almeida PCP Negative Normal NEGATIVE [facility] Comment on above: Performed By: #### 4 [id number] #### [facility] [address] [place] [address] Dr. Janice Almeida PPX Negative Normal NEGATIVE [facility] Comment on above: Performed By: #### 4 [id number] #### [facility] [address] [place] [address] Dr. Janice Almeida TCA Negative Normal NEGATIVE [facility] Comment on above: Performed By: #### 4 [id number] #### [facility] [address] [place] [address] Dr. Janice Almeida THC Positive Abnormal NEGATIVE [facility] Comment on above: Performed By: #### 4 [id number] #### [facility] [address] [place] [address] Dr. Janice Almeida TYPE AND SCREENon 12-25-2022 TYPE AND SCREEN Negative Normal [facility] Comment on above: Performed By: #### T NS #### [facility] [address] [place] [address] Dr. Janice Almeida PREG GROWTHon 12-08-2022 US PREG GROWTH EXAMINATION: [...] RANDEE PIKE Date: 2022-12-08 20:23 Normal [facility] GROUP B STREP CULTUREon 11-11 S. agalactiae [...] S F Tetracycline >=16 R F Normal [facility] Comment on above: Performed By: #### C BC #### [facility] [address] [place] [address] Dr. Janice Almedia GTT 3 HR PREGon 10-31-2022 Glucose [Mass/Vol] 74 mg/dL Normal 74-106 [facility] Comment on above: Performed By: #### 4 [id number] #### [facility] [address] [address] [address] Janice Almeida Glucose [Mass/Vol] 165 mg/dL Normal [facility] Comment on above: Performed By: #### 4 [id number] #### [facility] [address] [address] [address] Janice Almeida Glucose [Mass/Vol] 126 mg/dL Normal [facility] Comment on above: Performed By: #### 4 [id number] #### [facility] [address] [place] [address] Dr. Janice Almeida Glucose [Mass/Vol] 113 mg/dL Normal [facility] Comment on above: Performed By: #### 4 [id number] #### [facility] [address] [place] [address] Dr. Janice Almeida GLUCOSE - 1HRon 10-25-2022 Glucose [Mass/Vol] 161 mg/dL Critically high 74-[address] [facility] Comment on above: Performed By: #### C BC #### [facility] [address] [place] [address] Dr. Janice Almeida HEMOGRAM AND PLATELon 2021 Hematocrit (Bld) [Volume fraction] 32.0 % Critically low 36.0-48.0 [facility] Comment on above: Performed By: #### H H #### [facility] [address] [place] [address] Dr. Janice Almeida Hemoglobin (Bld) [Mass/Vol] 10.4 g/dL Critically low 12.0-16.0 [facility] Comment on above: Performed By: #### H H #### [facility] [address] [place] [address] Dr. Janice Almeida MCH (RBC) [Entitic mass] 28.3 pg Normal 26.7-34.0 [facility] Comment on above: Performed By: #### H H #### [facility] [address] [place] [address] Dr. Janice Almeida MCHC (RBC) [Mass/Vol] 32.5 g/dL Normal 29.9-35.2 [facility] Comment on above: Performed By: #### H H #### [facility] [address] [place], [place] [address] Dr. Janice Almeida MCV (RBC) [Entitic vol] 87.0 fL Normal 81.0-99.0 [facility] Comment on above: Performed By: #### H H #### [facility] [address] [address] [address] Janice Almeida PLT 204 103/ul Normal 150-450 [facility] Comment on above: Performed By: #### H H #### [facility] [address] [place], [place] [address] Dr. Janice Almeida RBC 3.68 106/ul Critically low 4.20-5.40 [facility] Comment on above: Performed By: #### H H #### [facility] [address] [address] [address] Janice Almeida WBC 9.7 103/ul Normal 4.0-11.0 [facility] Comment on above: Performed By: #### H H #### [facility] [address] [place], [place] [address] Dr. Janice Almeida US PREG PLACENTAon US [...] by: RANDEE THORNTON Date: 2022-09-07 13:38 Normal [facility] US PREG ANATOMY SINGLEon US PREG ANATOMY [...] by: RANDEE PIKE Date: 2022-08-17 16:28 Normal [facility] PAP ACOG PANEL 2: 21 to 29on 08-08-2022 . . Normal [facility] Comment on above: Result Comment: Perf ormed at: [facility] Performed By: #### 4 [id number] #### [facility] [address] [address] [address] Janice Almeida Age Gdln ACOG Testing Normal [facility] Comment on above: Performed By: #### 4 [id number] #### [facility] [address] [address] [address] Janice Almeida DIAGNOSIS: Comment Abnormal [facility] Comment on above: Result Comment: EPIT HELIAL CELL ABNORMALITY. ATYPICAL SQUAMOUS CELLS OF UNDETERMINED SIGNIFICANCE (ASC-US). Performed at: [facility] Performed By: #### 4 [id number] #### [facility] [address] [address] [address] Janice Almeida Electronically signed by: Comment Normal [facility] Comment on above: Result Comment: Cristy Robert MD, Pathologist Performed at: [facility] Performed By: #### 4 [id number] #### [facility] [address] [place] [address] Dr. Janice Almeida HPV Aptima Negative Normal Negative [facility] Comment on above: Result Comment: This nucleic acid amplification test detects fourteen high-risk HPV types (16,18,31,33,35,39,45,51,52,56,58,59,66,68) without differentiation. Performed By: #### 4 [id number] #### [facility] [address] [place] [address] Dr. Janice Almeida Methodology: Comment Normal [facility] Comment on above: Result Comment: This liquid based ThinPrep(R) pap test was screened with the use of an image guided system. Performed at: [facility] Performed By: #### 4 [id number] #### [facility] [address] [place] [address] Dr. Janice Almeida Note: Comment Normal [facility] Comment on above: Result Comment: The Pap smear is a screening test designed to aid in the detection of premalignant and malignant conditions of the uterine cervix. It is not a diagnostic procedure and should not be used as the sole means of detecting cervical cancer. Both false-positive and false-negative reports do occur. . Performed at: WB Performed By: #### 4 [id number] #### [facility] [address] [place] [address] Dr. Janice Almeida Pathologist Provided ICD10 Comment Normal [facility] Comment on above: Result Comment: [id number] Performed at: [facility] Performed By: #### 4 [id number] #### [facility] [address] [place] [address] Dr. Janice Almeida Performed by: Comment Normal [facility] Comment on above: Result Comment: Mc Bustos, Lead Section Supervisor (ASCP) Performed at: WB Performed By: #### 4 [id number] #### [facility] [address] [place] [address] Dr. Janice Almeida Reflex Criteria: Comment Normal [facility] Comment on above: Result Comment: See below for HPV testing results. . Performed at: [facility] Performed By: #### 4 [id number] #### [facility] [address] [place] [address] Dr. Janice Almeida Specimen adequacy: Comment Normal [facility] Comment on above: Result Comment: Sati sfactory for evaluation. No endocervical component is identified. Performed at: [facility] Performed By: #### 4 [id number] #### [facility] [address] [place] [address] Dr. Janice Almeida CHLAMYDIA/GONOCOCCUS ZAHRA (SW AB/URINE/PAPon 08-02-2022 Chlamydia trachomatis, ZAHRA Negative Normal Negative [facility] Comment on above: Performed By: #### 4 [id number] #### [facility] [address] [place] [address] Dr. Janice Almeida Neisseria gonorrhoeae, ZAHRA Negative Normal Negative [facility] Comment on above: Performed By: #### 4 [id number] #### [facility] [address] [place] [address] Dr. Janice Almeida VAGINITIS/VAGINOSIS DNA PROB Justin 08-02-2022 Kenna species Negative Normal Negative [facility] Comment on above: Performed By: #### V AGINT #### [facility] [address] [place] [address] Dr. Janice Almeida Gardnerella vaginalis Positive Abnormal Negative [facility] Comment on above: Performed By: #### V AGINT #### [facility] [address] [place] [address] Dr. Janice Almeida Trichomonas vaginalis Negative Normal Negative [facility] Comment on above: Performed By: #### V AGINT #### [facility] [address] [place] [address] Dr. Janice Almeida HEP B SURFACE ANTIGEN SCREEN on 06-15-2022 HBsAg Screen Negative Normal Negative [facility] Comment on above: Performed By: #### C BC #### [facility] [address] [place] [address] Dr. Janice Almeida HEPATITIS C VIRUS AB W/ REFL EX QUANTon 06-15-2022 HCV AB <0.1 Normal 0.0-0.9 [facility] Comment on above: Performed By: #### 4 [id number] #### [facility] [address] [place] [address] Dr. Janice Almeida Interpretation: Comment Normal [facility] Comment on above: Result Comment: Nega tive Not infected with HCV, unless recent infection is suspected or other evidence exists to indicate HCV infection. Performed By: #### 4 [id number] #### [facility] [address] [place] [address] Dr. Janice Almeida HIV 1 AND 2 WITH REFLEXon HIV Screen 4th Generation wRfx Non-Reactive Normal Non Reactive [facility] Comment on above: Result Comment: HIV Negative HIV-1/HIV-2 antibodies and HIV-1 p24 antigen were NOT detected. There is no laboratory evidence of HIV infection. Performed By: #### H IV12 #### [facility] [address] [place] [address] Dr. Janice Almeida RPR QUANTon 06-15-2022 Rapid Plasma Reagin, Quant Non-Reactive Normal NonRea<1:1 [facility] Comment on above: Result Comment: Sharlene galvez Note: This test does not meet current guidelines for screening and diagnosis of syphilis. This test is intended for following treatment response in patients being treated for syphilis infection. To screen for syphilis infection, a reflex cascade that includes both RPR and a treponema-specific assay should be utilized, such as Treponema pallidum (Syphilis) Screening [place] (308435) or Rapid Plasma Reagin (RPR) Test With Reflex to Quantitative RPR and Confirmatory Treponema pallidum Antibodies (295217). Performed By: #### 4 [id number] #### [facility] [address] [place] [address] Dr. Janice Almeida RUBELLA AB IGGon 06-15-2022 Rubella Antibodies, IgG 17.40 index Normal Immune >0.99 [facility] Comment on above: Result Comment: Non- immune <0.90 Equivocal 0.90 - 0.99 Immune >0.99 Performed By: #### C BC #### [facility] [address] [place] [address] Dr. Janice Almeida CBC AUTO DIFFon 06-14-2022 BASO # 0.0 103/ul Normal 0.0-0.1 [facility] Comment on above: Performed By: #### C BC #### [facility] [address] [place] [address] Dr. Janice Almeida Basophils/100 WBC (Bld) 0.4 % Normal 0.2-2.0 [facility] Comment on above: Performed By: #### C BC #### [facility] [address] [place] [address] Dr. Janice Almeida EO # 0.1 103/ul Normal 0.0-0.7 [facility] Comment on above: Performed By: #### C BC #### [facility] [address] [place] [address] Dr. Janice Almeida Eosinophils/100 WBC (Bld) 1.7 % Normal 0.9-7.0 [facility] Comment on above: Performed By: #### C BC #### [facility] [address] [place] [address] Dr. Janice Almeida Erythrocyte distribution width (RBC) [Ratio] 13.2 % Normal 11.0-15.0 [facility] Comment on above: Performed By: #### C BC #### [facility] [address] [place] [address] Dr. Janice Almeida Hematocrit (Bld) [Volume fraction] 35.3 % Critically low 36.0-48.0 [facility] Comment on above: Performed By: #### C BC #### [facility] [address] [place] [address] Dr. Janice Almeida Hemoglobin (Bld) [Mass/Vol] 11.9 g/dL Critically low 12.0-16.0 [facility] Comment on above: Performed By: #### C BC #### [facility] [address] [place] [address] Dr. Janice Almeida IG # 0.03 10e3/ul Normal 0.00-0.03 [facility] Comment on above: Performed By: #### C BC #### [facility] [address] [place] [address] Dr. Janice Almeida IG % 0.4 % Normal 0.0-0.5 [facility] Comment on above: Performed By: #### C BC #### [facility] [address] [place] [address] Dr. Janice Almeida LYMPH # 2.8 103/ul Normal 1.2-3.8 [facility] Comment on above: Performed By: #### C BC #### [facility] [address] [place] [address] Dr. Janice Almeida Lymphocytes/100 WBC (Bld) 33.7 % Normal 20.5-60.0 [facility] Comment on above: Performed By: #### C BC #### [facility] [address] [place] [address] Dr. Janice Almeida MANUAL DIFF REQ NO Normal [facility] Comment on above: Performed By: #### C BC #### [facility] [address] [place] [address] Dr. Janice Almeida MCH (RBC) [Entitic mass] 29.2 pg Normal 26.7-34.0 [facility] Comment on above: Performed By: #### C BC #### [facility] [address] [place] [address] Dr. Janice Almeida MCHC (RBC) [Mass/Vol] 33.7 g/dL Normal 29.9-35.2 [facility] Comment on above: Performed By: #### C BC #### [facility] [address] [place] [address] Dr. Janice Almeida MCV (RBC) [Entitic vol] 86.7 fL Normal 81.0-99.0 [facility] Comment on above: Performed By: #### C BC #### [facility] [address] [place] [address] Dr. Janice Almeida MONO # 0.3 103/ul Normal 0.3-0.8 [facility] Comment on above: Performed By: #### C BC #### [facility] [address] [place] [address] Dr. Janice Almeida Monocytes/100 WBC (Bld) 4.1 % Normal 1.7-12.0 [facility] Comment on above: Performed By: #### C BC #### [facility] [address] [place] [address] Dr. Janice Almeida NEUT # 5.0 103/ul Normal 1.4-6.5 [facility] Comment on above: Performed By: #### C BC #### [facility] [address] [place] [address] Dr. Janice Almeida Neutrophils/100 WBC (Bld) 59.7 % Normal 43.0-75.0 [facility] Comment on above: Performed By: #### C BC #### [facility] [address] [place] [address] Dr. Janice Almeida Platelet mean volume (Bld) [Entitic vol] 10.3 fL Normal 9.5-13.5 [facility] Comment on above: Performed By: #### C BC #### [facility] [address] [place] [address] Dr. Jancie Almeida PLT 214 103/ul Normal 150-450 [facility] Comment on above: Performed By: #### C BC #### [facility] [address] [place] [address] Dr. Janice Almeida RBC 4.07 106/ul Critically low 4.20-5.40 [facility] Comment on above: Performed By: #### C BC #### [facility] [address] [place] [address] Dr. Janice Almeida WBC 8.4 103/ul Normal 4.0-11.0 [facility] Comment on above: Performed By: #### C BC #### [facility] [address] [place] [address] Dr. Janice Almeida CULTURE URINEon 06-14-2022 CULTURE URINE Culture Observations: HEAVY GROWTH OF MIXED GENITAL LICO. NO POTENTIAL PATHOGENS SEEN. Normal [facility] Comment on above: Performed By: #### U RCX #### [facility] [address] [place] [address] Dr. Janice Almeida GLYCOHEMOGLOBIN A1Con 2021 ADA RECOMMENDATION SEE BELOW Normal [facility] Comment on above: Result Comment: ADA RECOMMENDED LIMIT 4.0 - 6.0 ADA THERAPEUTIC TARGET < 7.0 ACTION SUGGESTED > 7.0 Performed By: #### A 1C #### [facility] [address] [address] [address] Janice Almeida Glucose [Mass/Vol] 111 mg/dL Normal [facility] Comment on above: Performed By: #### A 1C #### [facility] [address] [address] [address] Janice Almeida HbA1c (Bld) [Mass fraction] 5.5 % Normal 4.5-6.2 [facility] Comment on above: Performed By: #### A 1C #### [facility] [address] [address] [address] Jaince Almeida ROJAS BOX TEST PT SEND OUTo n 06-14-2022 SENT TO REF LAB 06/14/2022 Normal [facility] Comment on above: Performed By: #### N BOX #### [facility] [address] [address] [address] Janice Almeida TYPE AND SCREENon 06-14-2022 TYPE AND SCREEN Negative Normal [facility] Comment on above: Performed By: #### C BC #### [facility] [address] [address] [address] Janice Almeida Coding Summary.on 05-07-2022 Coding Summary. CD:[id number] Gh0bWw+PGhlYWQ+PE1FV ZWdZ40onWCavU8OO5hPX A7OSJCQWNCNQD1JDB5ws HQ1FMfeE8QdomQs MpmfzMRxRN45ZSw9GVZ9 aKkeUKnevF1scWQhT6c6 XnYmXP25kU70PGwyMDTy ViK5VmRltogjyHRl R1oaZyEnyOTsUhp+PHRh YmxlIHdpZHRoPScxMDAl WqKgjKxuUX1eAi0fYJBz LWNvbGxhcHNlOiBj r3odYAUaWDxwZW2rvDfp B2QpwFG2KJPku9m9Sn20 dHI+EFEwTEG9rZssQUer z675JuFfq9buMRH1 yQXuCQuyVAU5K67xu3L1 BGSqYNAnRKD5mWJ3iB2q jKvyenafK4AjjQEdIxT8 ROR6xNYlqK1xxAev orytcQ9aJlw+D64RPF7M KXRPAK9TUez1G1OqFlqr dHI+MI68GKLdHC28bYSp dWAue1lbtBl3ZwDp APFxTII3pBnxCKfow4Oj VRAgQ57taHRse3O7ZERz aPlwrEAxJpXecRY4dZ9t TPukzasms9kkwxmb Dltyt4ahpm63bE30R20c FMemJHTyGHT2FOMlIHJg xBjhmn7klQ7bXr8+IDxj i3cob5zdkVi3AxSl UELnjvPxfGncNBQ2d2Wj Ub57Y2CbyCmnw8BsKtg5 aw13rPFko9P8nJX7LRrr HVSqwX4yMIpfZdO3 TAJtOsBddF18cILaNPak Nh3vbTikrMqcEE2sKXHh rdzoJAPtdF4pWAButTPe xIwcEC9zSKZxpnlm y942CyDuXZX6GGClmLEm Y6EqqZ7tXlLgWQTzXHNh J8YekOTaJJmlN265YQvb QbT3VEPqdmDlF5Pf BECurMndZdE2g7Z0Wm5P c0BbvxxjSWH8MGewIPG4 GsZ0VsGfIjD5D3DvGrp6 BEIgjUqrUY8qP2Vm UWEkgrircesmlBG4WVHy DHPkqP62mQSeVWzfFk8q g9G9k379AKKqLNRyzB74 Ks0tbDvqZWBiqWUZ vC3ygxzxh6papieiVkHy RDJrQOm6NZk5QAMofJdt XxCzZZB7UlW1EIY4dNNa iJ4jdMuzqxvtvW4l Oyc+P15sjG8pAED4VXA8 uzszJYQvthOaFR96GA14 D1LrTnbpnGNkiDK+PGRp apRzdLvaQL6hLuZc h2rax9XeMGogI5YfZRSo AJklQsm7PWJaYQT3kRB6 uY6eQLIpOOscp8G6bLC5 T1MhluSybm8tr3cv VLKsPYxlM16jfFOcp7E3 VAHsrGQ2DGGbbGapJvBj sL33Gso+AMAssPwsg4Bi Dznfd6cap2auwFi3 IjMwJSIgdmFsaWduPSJ0 o8KyFl58V36jIHshWBAv FAEwAYKhUCBldQfxwx5k mD3gNa3+PGNvbCB3 vQW7oR0uHDOqUaI2RJvi F046ClWmpBHiYedqq6vi u9svxSp1SwPsLZYqrtIi eMsuFVK6u0EwPp90 R22tVElpMLOaOEQhOFRt CNVcgGnwxm6utV4gTg2+ SU6jo3fcgi68fE70hKD+ DVQrHKX9cIewOHks VVTndG5iFPemJaY8UHHb YoDnfH41cBBbUMnbVv0w iJpcvXppZX4cVCLtshro q688MkNxp3ggONZw pWTqUYawAHW8M42rc9S4 ZVUlNZDcTGG6bMX3hK7d bGlnbjogbGVmdDsgdmVy eIalUIpiDAvbZ489 IHRvcDsnPlBhdGllbnQg NiGqWWc7W4GlLqq6GVIz mPcvZE6vkZNnCFuqJq6e nJfcaFtsHS7vBTTc pclsy684ChJfb3fqCIAp gGBjGIsuJFV9K86gc0P0 LOGiYJPgWVF3dGQ1gT3t bGlnbjogbGVmdDsg kfFzwCwrWUtpBJyiQ646 IHRvcDsnPkJpcnRoIERh eXA7HB00ZB08kCIvc9I5 rRZ9H8FmGWLfbwua dbmbuRF2RFClBCFkbC65 Si8mrCngRk2wYFSjIEY4 MKBwgSPjM6CbsW8kTpVf PUOhAICrJ0LciKDu NRcmA864JZotBrT8SYDc mdRgB8VqJQMtwNobIaE8 o5H3Pt3CC8U2SI29ET79 zVXhk3N5bDZ8L2Qb RWCegvycobmutUR6GHQw RQYwbU65Sx3xaIcaEc3c XACiVJP6EKPqpFVcO0Up tQ8uXaLdNVJnIFVv F1AmeKBhLChhR389SWrp EqP4GYHrleHrW0JfYONn bQwmZdV3z4D0Go8QZAq6 ZC56LI24hLPsg1K5 tEY7D5PsVNImpathbgmb lAA2CUWgCAGzhI89Nc6d lYnoCi6zBSLuHCE2LXIi rZChS1ZcdW8bPlMl SMGzDXChF5IjpUIzENct J594PYckNlF3KKVpsmRs D2JgXCDzoYelWzI6m1E6 Zp3XSLSuHG62VYI3 mYF7KP90US99E0PwBdxw dGFibGU+PHRhYmxlIHdp ZHRoPScxMDAlJyBzdHls YX8dCy6rXBIeJLPv gNamsXXcMsTzo2siPUHx VIloAV5diVunA1QlnOA5 MFEez0s3We93T31uP2Ih dXA+VHZtzYX2wDO2 eV7oQeSoZdW0ABepB437 CbXplLGqIilud6gdd7iz rQf6EsC3RNJoktNpqAib EQO9y1DyPe92O54q IHdpZHRoPSIxNSUiIHZh kGfocn2chH9yDk5+PGNv hXJ4wHR7iB0cXzQcDxM9 MQzcC142EhAtdOIv Yjwif3qjf0vylBx5VeXl MUCpebPvqCkmSKA4x4Fp Yw47D1LehTyel5QkHfg3 wi25sSZfe1H2aYM9 S8XqGYJaelhyxCMoyPfh AP4ePVPymmtfHPXjbK0w WXPuQ2s9GbGeSwF8HJqg J7JzqdR9FVUjeZJa VIcdWUF8X64ok1S0HRBm UNGsAHK9pRO2aJ4tpNmv bjogbGVmdDsgdmVydGlj ZLhdMHaxE350OFFp hQivDRCgyY6sYUEjmHTk jBwpOE7nDTEorordDnUQ O4DJAllcV1vGHvQECD8w QTwvdGQ+PHRkIHN0 bDpxHKchNFSnbO5yIFRo O7r3TeYaEsE2EQmvU7Oe DTAtrbmqSi71xK0gYkIu UqU6LKjlD9JkboM7 WHHhgNIzSCbrLVL5N02n y0E3DRFsGTPmGAE7cJS4 pM4hgScjcdwfdDSldZhf dmVydGljYWwtYWxp K941XBSbqUngLaO6TfB5 CaG7QBW6B1OiCba5NUGx qPnnVT0lgGWmKBkbDf9b zWzwkTteWW6jBGTy kwfgTOQnlA7gPHGkiYIw wRcsYF1tXZCduidbp004 OsJgHAC6MWEhsVEeG3Uc pC2wGbBiHQPaOVBr B2ChhAKpWJpeF579YQyp NuF4OMTbrtZbB6DoVAHy lKywToP1l9U5Tr7mWZEX ZWFyczwvdGQ+PHRk LKE8uBupSMukSCTooT3w APEwX3a7VtRtZvQ8ZFpr C5HeAKRimtdqHk63zH7i MuGkYsF9ZCukE6Nh wcY4PHHsuWRhQJqyWSF1 I10lj7R9NTDnVAJgXEH3 mAO2cK2erZglbiatnDQq dDsgdmVydGljYWwt DQnjZ877FZKhbGjfOzYf bWFsZTwvdGQ+PHRkIHN0 yZahZDppTSMhjL0iOZFg E0k8EtJwUwF6FNyd Z2SsJHVitpsbQt29dQ4s HfRgZnF0DStkX9BgulR5 AOVugGHjUYycPDK5R49m f6R4GNRoDGOoGYY5 nYC2tQ1dpLxntqcfaQXl dDsgdmVydGljYWwtYWxp G373XUDojUzkZq31fMLe eXlbuoK2H0NcHowh dHI+RZ46WXFqRO72oAMd qVRbo6fwmOs9AfMiZDTj IYK1yElxMEiun4VqLFEj I94feQRsd5Z0XGMv iNwdzHWtOgUhqRP4qM6n KPiumwyfv3ksgoswJian v9hvro11xX14C12sYThj ZHRoPSIzMCUiIHZh iQvfjb0yyX8vPe2+PGNv uZD1lHV0nP5xNmExNaY3 JVuuX467FtQhbFZzZvsk b5qki4iezUd6NfLh VSHldyQdxRwkWDT7u8Yt Zo58C07dULabDHYlRRIj DWBtETNczJquam4jrN1v Ii8+NP2cl9etmi16 mJ62mKI+LITiNFM3fBad CFfgVGHghM8zGWvhQjU6 NOOeCxPtmB73xIMbHEhy Yg1yiKbnwLamPW5j DMBqnxpkb176HlVpj4wp TRUoiNWaDQedTBJ6L74w b6X6LSFpENXgWGG5bXN9 cF7reIiuraiddHQe dDsgdmVydGljYWwtYWxp Z148FTNpoWuiDkZfvKUs V8eoawMAVP3lGrxqzEK+ EAGdJMY8qVvhWQtd DQXhoX1nVPKjN7r1SoKg WxS7TQrrJ1IurbL6DQDu mTCaMYZqcCUBpE8vtobl o1szwzedJnUfUEMy PBj9AKu6GWLvfMnlAaJt GCF1PhI8EIZ5wSQvfK9y bStkkjzrrZ1hEae+RklO OjwvdGQ+PHRkIHN0 fLqzDObbLBHwxA7wCAAx B6t5ZaEkWoG0LJntY0Ba nxJ6LSPtdDLfLYHugGBB rF4hzfkvo9pzddcp PmUjLOZsHKp9MWh5XEAd oLhtZuVdQHY9XsD3EBB2 uCTolI0gpQcjpewnwR3a Oyc+TVJOOjwvdGQ+ MJBpNGQ5pFfxKXigJNWw zN4aNLRtT7f5PdOqDoJ8 XWqeF6TcyoW8JEKtjCBf PLMorXGZoY4nlezx h7vtuwvnEqXwCMMuXYo6 JBl5IDRnaPyzYvLwWNN3 WxA8TKF1qZNkrF5crOzg syepoO8kZct+UGF5 FJO9RX11VQ46E1BjPtum dGFibGU+PHRhYmxlIHdp ZHRoPScxMDAlJyBzdHls WH3mSa9dPECzRSIg bGxh (more content not included)... Normal [facility] XR hand BI 2Von 05-06-2022 XR hand BI 2V [address] [address] XRay Report Signed Patient: Haley Swann MR#: [id number] : 1995 Acct:[id number] Age/Sex: 26 / F ADM Date: 05/06/22 Loc: ICXD Room: Type: [facility] Attending Dr: Bo Cid MD Copies to: [...] IMPRESSION: NO ACUTE FINDINGS. Impression dictated by: Tristan Higgins Jr.OAlexia05/06/2022 11:59 AM Dictation Location: [place] [address] Transcribed By: [facility] 05/06/22 1159 Dictated By: Albert East Jr, DO 05/06/22 1158 Signed By: 05/06/22 1159 [facility] US PREG TVon 05-03-2022 US PREG [...] by: RANDEE PIKE Date: 2022-05-03 16:[address] [facility] Quanton 04-26-2022 [place] [address] m[IU]/mL High 1-3 F [facility] Comment on above: Result Comment: GEST ATIONAL AGE HCG RANGE (mIU/mL) NON- <1-3 0.2-1 WEEKS 5-50 1-2 WEEKS 50-500 2-3 WEEKS 100-5,000 3-4 WEEKS 500-10,000 4-5 WEEKS 1,000-50,000 5-6 WEEKS 10,000-100,000 6-8 WEEKS 15,000-200,000 8-12 WEEKS 10,000-100,000 Performed By: #### 2 [id number] #### [facility] [address] [place] [address] CHEMISTRYOrdered By: SYSTEM SYSTEM on 04-26-2022 [place] [address] m[IU]/mL High 1 - 3 mIU/mL [facility] Remisol Consent for Treatmenton 04-10 Consent for Treatment [id number] #1.00CD:127 [facility] Physician Orderon 04-26-2022 Physician Order [id number] #1.00CD:127 [facility] Outside Operativeon 12-06-19 22 Outside Operative [id number] #1.00CD:127 this was entered in ERROR [facility] Consenton 12-05-2021 Consent [id number] 5#1.00CD:127 [facility] Provider Visit Summar yon 11-19-2021 [facility] Provider Visit Summary Please click on link to see image. pdfCD:[id number] wSwKBToknvL9XBIKaLK1 ntxo3RVboXYEgVDQxQLY eCQRkVUHdROMTQ3IcJeY zr6wfytAq Kfe2WQoqT7XiGBMpy61A YXRlIChEOjIwMjIwMTEw KBH3HvE9WujLTi2APP2a g3VqLhVpTFLpFtyA PObFPDDdJnKrZfVxT0ur zqj9lMDyODTkMCLNDDSa LrcxoTViBG9QkXO2RFIs E37eGYs+PgpzdHJl XS0RyTulypuHE+cex99z TvZgJCFsCHuGpUAAkRGm wAuWsfPBCBKMDFIZ34GU sKKoyFIEKYpYsFqG 5BusEmcf6s5HUCLwcRMJ 0USep/U00q8h1+8f53ye 3/c2snt6hka6ZkSvjUtv MBdWAUAokogj/L0Z fIXfCBuHxDTcIDO7YZvp aeGQOBzyjPyTv18GcDhT v2JtymGPwX6iJJfV/0+q 3IwkLFAxBG5exRga uuzG3JuNK2hB8TeuUGpV ODYQUaGRmfX0iur3dRbp P/aFtXmMoDORI05Jat1u RZdD0xGgameqB25E IpfiPAE/W07A0WjcJCVC 5PxGESvkc+U9bIuCr7ZJ SGUszErN3gzKecgxLYEr pX7ByV+hrF5wORSI xfoyHYxM8sECe52Nc02V clGV4Fhv8hYBLowRp8BF 9qpoCHH3E8EDkNiHt8PX 4OCrY2PVyJnIR6GM aq9YRe3Usg8tBH5e7QY8 365K4Q8/bH/av8DAEMpV Swsln5pWhdRvIRtSrk5/ pGR4VQXZ092r9hk1 2QRirjxWWLwd7yhp55qV +FwbRUF/+Cp30iw6 iu1+Lw/Dh5/CkWZKGIq6 efMmb5GjOn55l1vb QM66qW041E/PYR3BT+GL +RB1AUJ7agMgBXt1ONhE RJAlYghE/6mJ/sWgB6mB u2eorO7VCaRZeSls AeTnfoCiEgGSsFu+Av3e b3W8JVJtrWk62Jg1/yzo 29bUltUZLVIz5jg1IOZK KxXnzawpriVAAwJQ BjSgCfSAETAHTOAAnIEb 8AS+TN3AWWCeHubFYKCS aULN9uOucJmOp7EgRrcN 9oAQUQVi9FfWu96d MByT60EmiCKwXGwKTYxJ k8OPqFGGBPXrGRTCrBUj loiWnvUhHZZ9G/KFgqEI GK2YknSzLXWRfyOo ySEcRPiC9eYn5VulTKAd ugANQnegIWgc+zJ5LnHy RbyMrbXpjIrmGF85KY3N O7FbuK21WU6TA7SP gYD3CJ5CZ3LP3RfkQU1A EmYRANQ6oWKsJmqMbQXp 8UgKIkZWICVIBdKAtCLd TM2lILSoX0jmWYMY RTFQTJQbKgAVheKiclAr PAeQ7ep2vM9MD+oaagg1 acdUSjQ32IVjG4CeZqwe ds2LZ6Za9A7ctkQF 8G41SFvFMvPbI7fyyxiH GPwbCfGUertbW4VYXBCB xAxjprBYrCbWCuuODcVy fDEbPvRQzfM2XfgB A9S5cyHt8ETNQT8zEC9E V3TfeH2XgfVnaG1lbfDv uSQ8Ye7Ap9TZ2gqlrtxk /VV4NC9apWwfP9wX HaopiMGOHnFw1CsuChHN lSq3AHoKe4qI9klcOzUS 8TxxiPiWRCFZktikBJKU mRy7w8XLtVm1zlts e7R8juMmONildDp0kapG /JhPzgWwAOoQD4vuPEYB cZBR5OueKegE4Wm7sdZH 0MyiA6eVjLoT3Dcj LicMrzwWbZxGktf3FWFL yxs0ftNmIyVLbcbWW4uG JcACB9lfrTedmrkncKHX HwYbYWVV0XMQOiij B4peIUeHqWAQO4cS5x1g FoUb8Gqto9Hy1GuMtuMB b5mqHH5OXrpMqHsWT4Og 0t+r07v8tnPTY6q0 lb5Bk69mmqKuwvwu9PvZ bRJdWgTp8vkGypiNp3Ct dETAh7EjVDazn0kZTs5K tDp5snHHa4F0cPIn UAsWPgoMG8uOBc5+nSld PV1/7WnySs6aohK2sG9C rJJ62Yqp1Pv9puix6LG8 2/OJ4k8vnBW2RZzD PwSgH9CDlmMTVGiLeeAa JV9jBlxpwBtiizSUTlSM SQFtmJ8wx9xUGX50pHcM qVhlGWH3MoryyRIo SZ/Ns8Tn0hwA2repqlXc OkkLJznYCagfd8MUWkas nMkPu3olCTwJKQs1VJ3A wpaOlmmWNZaXrWAr BjtP5D9vLAn8vMg7aXjQ +oqBbXZi0dAcvBQ1oZda ioO2jJkXaM7x18710rbV qbAwoLc0p1G7R8+x n2e/xr7b/sxJFtgtC95N 0KubZV0tVa9wejJ2naLf /muke279Qs3KBPq60qp+ rPE2Dby4Fg52Niqo Gcw092MCXXDeVvujKbjJ l9xGMshh8gc8iTklB0j+ 8fU2a8Z81GW0z0rTs50u rQD5A3wJb385qO8e zfUlHLKoVvDmHB2Gh7jq Dj21xwbPGH4Ko2Szf30S xZ52su8l1n/Gqypi0JZ+ iI+/T4nPgC/FN8q3 8slrv6Ltvt+L36S/o/9S /7YM2QVjsO5AvlD6W3oI tEZQ21gtGX/TJ3BEUfGS GgWz6ZJJEZtkGqyI C9kWcn++yXzR/B8SQVcS wj04UWaDTY0Q4+GY8LDw lbEREaFJpjZ9PiUNCN93 aKPOaJhtSsI1MIYf iPJPtPE1FjPs3MaIh2wu JTbwzoot3XpnFaPFjK07 oQs9aJO50ZQbnGbZaiC2 ReBs0Bxdmnza4YUA VihfPn4NST5aKT7ECopJ AF9Dlu3S8PDrviFWz6oH F3vx5g4rC47flvdrlI/O L+ePprinlKeMpbqn bksdT/BYe1hwUBVM8NGw 8BIqgkahC2Jc0bM6zzrP aEDxtDuXhnZFWMPLb0QO IQC8wE5VCHjwx0RA 9QMcBG5JI+VCuYtyuyQ0 +b2Tg3Mtog24hHp4ndrp TX50/pUE8VLINC+hZeHG wtElfku+Mnjuak5y v1jh1vzeC0c2hlssnSMy r+qQwjCesAVVZx8U+1cT Vmes/pYT4QqiZI/Xxqzt CkMzWsL1kD5/XUux UrG4+NZ6t/E6G7WmICsO Px7iHESnVpyn8JUpOLlY 0kzQ0X9Ui8U/ntRlE7mT Ng+ZECYo6jDYLyrm x9uC2v7palXQpzr3zWlo 3G9RJnD55Y1ATLgxJfaG 6TQohA9ZAOCSoiSPX60z el+fNk6ytlhlgSvv pyCc1957PGg3g+5urdOt G577v6zv23k9n51Ia9gL pA6Q6mx1lhfkJ/u+Zn3d 2WLFQZb7KQ3fn6a/ eR2fXyzv3pG0W1mp4GTp y/cThDOEpsU2jgwM8Ycd Fj5vAWYAQV29+Lna96bY ao88NGDsyk8I8Rjb edc9NPqMNtae8JtWKdcP 9hj0Tf8bK4tww/v3Nt/v C6LefFj35dBgJ0FMSLx+ oNoolqnM0tjC01id h3sSe+6tpP7ixYr9o+Bs 0Nnz5/uIymkw3to06q64 nSbxT98gIL3lvRV4tlFf sb/4S2kt4azwOzaw O1/yueJwfUovblOShg2Z T1/tmQxhxyM3Chzd9sp8 HXTp3q1IP7GcaKvnlyYq PL+jn3j26rt26Ttt F3AaBCkDplyza8RPgGMh 7cTnc7Y+Akwz3RaqJz/9 Qlsz1xPIf4jTC6z3P5mW KYeFancYQ9eg4YuC 0+xf6uXVT4d+XPvM/Nl3 v3j+3m7XSkyeSJd880+b Xmi+6Agv4kzigfHal9+E l5Dch4zEhKP/Fang 99bTk3TU+e+x7ys/WHzo /zr64y5e1trCzbEM6dWd ToSuDDS0ayDvrMjwfuVa BaxWZzSnWB4nuzsv H0xZX2Mng9OjSDZjVPPW YQnjttItQcqKRvZlYV1t mdk0YNuoFS0JvGLeCU9G DTDqBTA3LGwtQL8O cSG8eOFyGN4FACdESLGs PHMiK9RrZQNzRTQdLrt+ LvswjGAmQE5NST34cLPb v8W2ADOqQ3drEYSn r43wFXjlJXBEET4vMCAP FSaqEOyuKOS8MpZflvfc OCIhPy67bOt2qOFjSVVg JFctlK2gJgh3YyMq o6QaUs4xZf8oiEIfLf4W WWGsZgpURBJuoQ4jmhQ7 uyPsEWZgcAPzXp5yx9i2 SbmsAd5zJb5nICk8 KaLjJyMfJRZpQa8eoX10 HPnfmdKxNz9APFNpVuwV OIStscnyoTvsluF3oHht adtsKTN8Lsz8hMK1 Fg1cjm8uBI5bWG5yc25q uFGrIxIiKj5gYVOgQjzi Zr91qC4mTy3ZDKSbMgpV nt3ysAHrij5TtAFe vKDjEs1REYGmpfGla01j ET04JEpgcPAtQhGka3B9 O3GuMdb7tGYgDkWMCzIk cnNpb24+VM46OJ9m VCX1WRPUJxYdu9lpya0X YZ7uXCI4ZNFnK3KiwHYs b24+KjowFBV5EDGsC4Yr qEVrx67vlQ6ttlQ7 XVB6Kiv2tMR7Cv5vuCAy Iq0mLu9iMg2lwERxFR00 fk8aWtZkRcXiLQW2HZVc zBO4CeR+CjxkYzpk YKAuBpb3bjPnZsKwfJ1O COLoWliepC9dGTCyKPUq QHQlQTS8YmFyErS3Qnkl afSuEohsNxr1O2Iv ZjpTZXE+JbmdUJN2EHS7 GO0KQD5kCAH8SLIuA6Xg cHRpb24+AlylHZC6QYVu I2PvrUXnt79lzZ6b itQ4tG8xOFCliUPyPd9g wvTsMDBwIjNfA65mO5fx uV0mQfGpGqUhHIN7VBVs hZP0IoF+Kpg6xZW7 N4DfRPRwYTM5SB2zZZOu VVBpOFKeVPD7ZzIsSjC8 IgyneT2jMvAwPWB2IKNb dGU+CjwvcmRmOkRl d6VtmSI9bF3mDpe2U9Bn ZjpSREY+WgtuhTc6ySOk ZXRhPjw/eHBh (more content not included)... Normal [facility] Coding Summary.on 10-11-2021 Coding Summary. CD:[id number]:[id number] Gh0bWw+PGhlYWQ+PE1FV UVvR33gcZXpzR8BM5nSM I2RFYDOPPYILZ8CWJ8ze BU1ADehO4EjpoXu LvlihOVwTF88QYk3QDO1 wAofCOzcvC3mvIEgC9c2 JqWzDK35mQ82GEiaJZTr PqA7MnKzsaoysMDb U1nnShYouLRiMkn+PHRh YmxlIHdpZHRoPScxMDAl JsJhtYttQH0tRu4hFYDp LWNvbGxhcHNlOiBj k1ptHAPxEQamAZ7abBrl I2UnxHQ9UPCox1y9Hk49 dHI+MSJgBPV4uYojCGxk s054UeTqz8spUMA3 bXGpJPsvYDL6Y46vr0O1 EAUsYWGnUFV0nUF3hG2g wPsfebfyE3NcvTRgAhE3 KQY8pFYrhZ2usUpn yqeuuQ6kYhx+R35NSE2S VYMBII5OEmf7A1EbAmzo dHI+DV54TOUmZY93aFHi rVCur3mgeCi1PsAc CNEhWWY3bKssFNalf0Ym EWXnL40zcYRfm9G6WCXr yYlajVZoTvXkcPS2vW4q BOzelzzxc7ildwia Mdyaq2rcpf53fY34T39k MGlwCVLyDKV0XULwUGEg lGuzow9zjW0cSa9+IDxj q8kbl2midBg1UiFr JDYilrSegNbkGTC7y7Eg Rw62H5ScwSzzp0HpWcl6 yp90uLSkc4K1bHY6SWxi TGKegW0fJFxyYgF0 CKJdPrLbdG61sDRtBFtp Vk9tgZgtrOllEO8sPISk dqfvQZLksH7eCQTejYBf iFogXO8xGRLhzksh s509FmPbNRR8EFFovMJg O6QxsZ1zWkSfZHUeWIPq Q3RbbPRtKJzzR642BUvj VgC7XDApgmHzF4Lr GEXxqZzlWrW0h6L5Yk1Y g7BhshmkOQR9HAvvJSIx ZnWmYtCiDwD8U0RvSpa5 DBSirBdrCE3uH0Fh NQTjjrhdageviDH7TFHy AXVdjO06mMUxVHzhWm1x b3K2p207BKGiETQtfF57 Pa2zlHbvUUGiaGSR bU9aogfjr2eqdqmhSeIl DBFpWHf0ZJk7JTIdpEhk UiEwXIR2HfA9YFY5uUXa jF2zhAfdywvzvZ4d Oyc+T54bfT1rNDF0XOT3 wdznCGVmahRfWT98CS59 Q0LgRmnssPDssPV+PGRp dwRbwOboWO6fUbWi v8rkt9VmWHlyC5ZmAJDq PVbpKdh3LPClTOQ9pER4 fV7uNWEwSGvmm3E0tEY2 R7BthrPktq2bb1hl NCKiVEjaW11loVUjb3E0 YWNdaXO3KZFrzIhvJtGz nR19Yvf+DMRjtBzlu3Bk Gbdet6kfo6yzdVz2 IjMwJSIgdmFsaWduPSJ0 q6YdGz15W06yVGxjSYFh RSVrYYPtANIvfVrsky2d pF1bUq1+PGNvbCB3 mEO8qQ5aRAWnXgR9NEwq H992LfMdeFMyChxcl7ew j0kcwXa9HaNdBYBkufKv pMloBNP5x7PkOg96 F71sFKnwKUWdUNGzHZCl PMCtqFopfw8dnB7eBa9+ YR7tp4uxvn62pN33rFH+ YPFkVIB9hVevWYod JZNizB0qLVtxNhC9DIAx NcVrzM65nCVjULelFi7s gDezjJpqWO5lMFBjgifs t376RbHrf8rtJJZv rQTiMKiqYJD8U01yw6I0 BULcNRViFEV1wWX9vZ4p bGlnbjogbGVmdDsgdmVy tDcjMTrdEVcjM844 IHRvcDsnPlBhdGllbnQg YuNdWYz8B1OfVvb4UAEh xCdoXY6txKNcMLqkJc9n ySmmbZqfOP5cSZKr vdumj648QtCse4upHDCm aNLnBBjvZGR4Z68vr8O8 NSZtIJSvDJJ2tHP3jV5c bGlnbjogbGVmdDsg tjIeiGyvNWdcEGcaC847 IHRvcDsnPkJpcnRoIERh sOY0BX87TM77jGEwc4H8 xUO0B4IuZOChbzab nmmjdCQ7UDAjFPLozH75 Fv3lgXjgDz2aTRMiUVB9 VOClvBFlT0BtzF5mGxZa HQQtNGSlK6LywECn VWoaI561WSseXiH7QJKy mdPpT4GtTVMjsWhhKpJ8 o6Y9Wx0HV8S8WL27RZ37 zROod1H4qCH6X3Aw TCAsabwimfhfuEP8NFCl WYAfdL65Qu0iaMhjCd1f KNQfYVP0GHLzaRHsB6Ue uE8eLlTzXDMhVWFi M1LlpUBfSLxrZ178KJir JrV2WTJurrCsN1QlNJRn xBuxItV4t1H2Tk7NTGs8 HH99WL89pBFnk8F9 sZR4C0FcEWLurtaqsxhx uEE9WTTtKCFidM77Mc1r hMfqTp4fVZXoRER6BXKq jDAgJ2AhuA0vNiTi XKYiIKDrA5DqbXCmFCii P918PHpdHcR0LCTluvQg M4LwTOUeuKirWlI5e8T0 Ax3XSRPwHW20KIX8 vPY7LV42UG69M1EjAisq dGFibGU+PHRhYmxlIHdp ZHRoPScxMDAlJyBzdHls WM1iTd9fYLPfZMFq vCcssVPuPeKdp4uvUZWr QZdyYC9poUyiV3NstJK8 HYVpe2v4Gp99S58sV8Kz dXA+AFKdeOJ4vYJ1 iL4sXsVcEfL8WNsdB141 AuMesNBaFnbka6bfq6cq fUp4FhE4YLHxubQssNej VCE9c7LkGa70Q89x IHdpZHRoPSIxNSUiIHZh rAnwwn0mwP2pFp1+PGNv xGB0rIX9eB8dXqDlRuQ2 KJtzX578TdNklLHp Xnyjk3ejp3slaSq6KgTh YXHgkiDkyDcrGSS5c2Ev Th70P8LnvZloo9AiRvb0 og13vCTpn7B4kMD7 V8SuSCUsailuxUHcdWuw PD2dRKFukxtyTKDqrI8o FDJyL3n3BdRtJeI0PKuk I0WljxY7HKPquLBb VMjnNHW1U74ar6L0SIRj QQGwUZE7rEZ4sQ6zsAxd bjogbGVmdDsgdmVydGlj HBteGRhcL893CZGg nKxgNJZscD7xBJRqwNTt yIqeJL9rRGKtglpwMcLA H5KBCeybV7kGDeXPZQ4r QTwvdGQ+PHRkIHN0 vPzwJNtnNMRsyE6pNXEh P2w9BpNrMpJ5TXogB8Gl XWVombvhSq98kP2vTfWz JjW8CCszS0JgtfZ2 JDBkiCDmIRugMZY6G08i v5A9OZJxPSHeAFD0nWT8 jV9ytXwmmnmulXRlnMok dmVydGljYWwtYWxp I722LYEpsFjuXjM3UwR5 XvE9GCA0Z6IhYqx6IKEq mJyoKS2ivTEhLXqtXj3a zTjodHynSK7nLCJb wbvhJCXusS5jJWYnyXMn aDljUQ0dARZppxiqj017 FsVhFQN2COCdxEVyJ9Zk eY0sQrTeMPUvMYDm A7WnsUGnKSqxR932FNet BhT4OFLpwlAsQ4VeEBEo uYsmJuH1i9W6Pp3eTLLA ZWFyczwvdGQ+PHRk KUI0wSdeJWmqFZHxmV8g SDHcN6p1FxRfSkU5RRgu V7JzHQUyewgcYv81gN8b EfZeKyT5LDaiS0Sm tkH9NVNanYLfCNohDEN8 T46gi5X1RSDrLFUxIUN2 uQS7aV1cpLuamywxwEHi dDsgdmVydGljYWwt WCegP592OCAadRsdNiGl bWFsZTwvdGQ+PHRkIHN0 pGsnNYcxCVZrcX8iJSOy M1g1PhPjXeI8AChi U9KpKNHwhcdxAv58oH9b CsJjUhI8ZHfuJ2XicbD1 NCFijXAaMZysBSZ7P49f q3V6OKNfIRVzUKC4 qVT5dN1dtZncdfwqoRSa dDsgdmVydGljYWwtYWxp N885IOUhoZikOxUpC4Tx cmluZzwvdGQ+PC90 nx95A1ZnDhjzUqv0KMHg ASL5oRE6jR2vYWVkQIrl u5I0mZO8N2IdosVgjl8s n3hgEACjVVuyV08v yBFad8S9MERcoMP8IETk wPhtDyCgcC47Rha+PGNv eSaer9OiYxwmx6inx7lv nOm3EwHjOXStxuVt dEjnUMH8l6DiDd70Z25y IHdpZHRoPSIzMCUiIHZh dRhtwc8jgR6qRr5+PGNv vUQ4cKM0yW3xJfIj DyN8XXymK699PoLmdAFo Veaiw3asj4bxfGf8EaXh VZFlrnRwnRrnYSR7k8Nb Nr78P1PzgIkqj9Dg Gyt4oh47fDCeh1B6pPE9 I8XnTVAaztxznKHacAhl DZ4bQEDottmjIKHyiD3l RTPwQ8m4WtPdSsQ2 EQytS1QtxyZ2ETPijRJz DNOwgEAMpD5wbnukj9zf cqyjMtEgYCVzGIe0MAt3 LWFsaWduOiBsZWZ0 OiK9MPG3nMWkmZ8xhVby anfkvG6bJbz+LYd0e6jb jZZjFS7tgLY3AR06ZH52 uBJoo9P1kJY3B1Po MYUezkjctxrlaTF4XGJq XOOttN44Hq5kgZcqKi4h GLDxBYG6RPLmdFRqT0Ox tD6gAwUaAQTkRPXx V8FqtRZrZJbaJ451GXho VgK4ZAQztxQtZ0VzWOQl kPmoNrM8h9B4Oj1HNC86 TB22TM85nUXwb2Q9 wGG1S9MlRIFzcdkjydsm wHJ6FDAiTJXhcU87Wr7x hIjjQx0nUMCmNGP5QRSk bQIbA5XdwO1wJgEv VTDtMIQyS2DahCSmWQjx F899HFzvDnR5ZSGrabLf G0ZoQOLdzTstQmP5j7U1 Af0BTg26RX56HE02 sVHcx5P5bDN3M2RuOEKa cerccaigfJZ3DVYtWCJp cR31Vx0eiNosZq6iTLCc XZF1ZFCtbXNtE9Vd zG3lVcLiCNBkOQSoI9Ar qPPgRVveN780AJgbYyX1 WDNwwmSpY1HjDTXviKwh CqS6w3Q1Le0RNGfa jcf0K0VvEgugdSC+PC90 SQWwQV98qIFrnBGqv1il iCf3TeIqGXVjNGZ9nCex IFwep6QtISLrW98g bGFw (more content not included)... Normal [facility] Consent for Treatmenton Consent for Treatment [id number] 4#1.00CD:127 Normal [facility] Physician Orderon 10-11-2021 Physician Order [id number] #1.00CD:127 Normal [facility] Rapid COVID Antigen (MC)on 10-11-2021 Rapid COV Int NEG Ctl Pass Normal [facility] Comment on above: Performed By: #### 2 [id number] ####[facility] [address] [place] [address] Rapid COV Int POS Ctl Pass Normal [facility] Comment on above: Performed By: #### 2 [id number] ####[facility] [address] [place] [address] SARS-CoV+SARS-CoV-2 (COVID-19) Ag IA.rapid Ql (Resp) Not detected Normal Not Detected [facility] Comment on above: Result Comment: The [employer] Veritor? System for Rapid Detection of SARS-CoV-2 is [...] other viruses or pathogens; and, in the [place], this test is only authorized for the duration of the declaration that circumstances exist justifying the authorization of emergency use of in vitro diagnostics for detection and/or diagnosis of the virus that causes COVID-19 under Section 564(b)(1) of the Act, 21 U.S.C. ? 360bbb-3(b)(1), unless the authorization is terminated or revoked sooner. Performed By: #### 2 [id number] ####[address] [address] Employed in Healthcare NO Normal [facility] Comment on above: Performed By: #### 2 [id number] ####[address] [place] [address] First Test Unknown [facility] Comment on above: Performed By: #### 2 [id number] ####[address] [place] [address] Hospitalized? NO Normal [facility] Comment on above: Performed By: #### 2 [id number] ####[address] [place] [address] ICU NO Normal [facility] Comment on above: Performed By: #### 2 [id number] ####[address] [place] [address] ? Unknown Normal [facility] Comment on above: Performed By: #### 2 [id number] ####[facility] [address] [place] [address] Resides in a Congregate Care Setting NO Normal [facility] Comment on above: Performed By: #### 2 [id number] ####[facility] [address] [place] [address] Symptomatic as defined by CDC YES Normal [facility] Comment on above: Performed By: #### 2 [id number] ####[facility] [address] [place] [address] Coding Summary.on 09-18-2021 Coding Summary. CD:[id number]:[id number] Gh0bWw+PGhlYWQ+PE1FV VUvU27jnXXqpG3RX9rGV Z8FVWGKCGIXMV2AGJ8pr HA6KRktA9VkypBc LbcnoYDxFV96DXp2TWU6 lHvxEGlerL7qjRBwU2t2 IpSgMA82iR59IFekWMRn HlF4XpUfwrxsxFMw O9cvNdWntTKxMpa+PHRh YmxlIHdpZHRoPScxMDAl YjZerAccGM8bZr9wHECu LWNvbGxhcHNlOiBj r8jkVENhUSctLV0ciQnw K0PhvRT9YGHgq6e6Uu48 dHI+XHOvTCE9mFldDLpt m771KkLtx1esYTZ5 oKFgHQegLFP3R60zt5F3 OPMwYXNsUYJ6xVS7zP4a uUxvozwrH9AunOKmOxG6 HPO1aQFyuR4gfEcj tupvrX5cKzo+K12JTD1T RKRSZJ3DXsy6F8GdWcem dHI+RM73AHWtVJ98sNDf xHSgc2cqzNn5SpEf WWWoGQB9rFjsEFcih0Mj OSTzV63brJVdp6V9MERl hFsmaGSpCjApiME4bN6q IDnnefcei0mhvfef Ujzqg3tjgt11xU07P51q MJnnUECtFOP0LFYkVTTu uDbmeh1knL2oVr3+IDxj o5chh9jemRf3JmNq HOLvmsHccRciHBW0m9Vn Wk36P2BcpGgsl8NcVto7 fj36fPXyd6F8gOZ2AKmw RKZybL8mACgyPdK9 RIYlSaYobC05xXPaFAml Dm4itNoaxTgxAF9sVFWe oegwFCKsuV4fHCBqiOVn oFwvCO2sEVEgsrwi f110TyWhQHG5WVZjqPPz T3InlJ1dMaBwVNJsCECb S7NojHNdWXfnV997PNda AeD8VFXecrOcO6Al MSDzqXnfUoQ5w5A4Bt3H p1OpidedQCJ7CDjeUDSw VmX4ByJvDdR9X0EvZsh3 BDTccBuoCV6pC7Ad QPUfemtnnlyfsAU8FWJt TIBqoE36nJUzKGtrDy7o p8G4c567JAJsAYVpuJ07 Vc0asKmtMGOqaAWQ fL4oackng7lhumfnNlFt SSSvOCj0IMq6JINftWsr QbNxUUI5NoT5SAY0vLZg eN6meMwdofgreL4z Oyc+Z19dyJ5sNVO5BOV9 rgzlJPGbdgBcWV36AY95 F0RnFenagMXqtIC+PGRp kqNuwMtsLC9wFyBg t4qkd7BqLZjiO6XiORUu MStrPbs5KYHiCUQ9eIM0 sA6vHJTvGBnea0S2aGA0 F0OkdtTlqj4dv5wm JWZfPLizJ51pxTOqt7Z9 RUByyMH3XVUytOffCcJz bX78Mkz+OSXtmAxyo1Hb Zkzsf5nbf3nwlHc9 IjMwJSIgdmFsaWduPSJ0 k6IlFc96L48hVTkaBSIn MQSxTKElPXJjbMhyer6h xR4aUg0+PGNvbCB3 zNZ9bO0bGNHiTrB6KEju R559HdFwqYQeWigis6vz n4zkiMe9BgDcKUJdneSu vYcrHGI4w8GbEt04 H91uXWniKYCmKKOiKPTn PTMzsCsihm8vuP1nZc5+ KL7uw3bjtw89aX54oZC+ SYUcRVY8hHayUSbh HYWyvR2tKJwnFjH5LRCg ItMopD96zGPwOMlgYd5d wPkikFheAB3jLWJtnczs p397LbAoo8hlZJYh uWUjEYonRPR9M13fm6M0 FAXrXQVlMNJ8dQP4uB7f bGlnbjogbGVmdDsgdmVy nAepDGcuVSpaH913 IHRvcDsnPlBhdGllbnQg PyMkOAn1U1NmXgq9VVCr hMnbEM6ksKKsCJydRd6p tEjlvLucEA3lEDYl vczwq050PoFqx1muFZFy oCJhZPasHAN5Y74wx3U3 DGXpJKGlDXL5yPE7dW4e bGlnbjogbGVmdDsg hxLhhNkrTSlaYCvjL497 IHRvcDsnPkJpcnRoIERh yXO3MJ33VP31fSAio0J6 iLA9H3IrOSUxsltk lqpmaAE4FVCpJWOmrP05 Ce8erWalZe5iTTKiTIX3 LYPcdQZjU1MfgG1dQkFi UGHhGXBjE8VbpLHg GPexF980SUrbNtI0VDSr ozEtZ7KaLDBnuLjmTcI9 w0V2Bk6GW6D1JU46LF66 nDEhp0H2vTN4N7Dt HBHpaaluaoamiXL2GFGy BVVvjC95Sn4vbIjtSi4p TQBoYSU8PQSjaCFvO8Va nA0eWpKuCCHjWMIj X7PljLYmEZjtY130YJnd CyT6LGCcmxOiX5YuWLQw rUkjTlG0x4O8Mr4LXWe2 KT14RL43uBKvn6F6 sGT4T6AzQDAlgjogytee mWV3PLSyBZNdvJ03Pc3c oAtlIm2hCHJlPSE1LOLs hPKcZ0GdeM0gGzYm SSFyVTDeO3UovRPfUPoa Y221EJnbBmS4UGCxylGw A3UwBCNsrHqvMeX3n3B2 Hl3ZEXChCA33XBP4 bWE4DC69OY31U8LcWduh dGFibGU+PHRhYmxlIHdp ZHRoPScxMDAlJyBzdHls UH3gNr1qFROeAKGj mCxdyGDwJjOoa6qdLLVj HKewFW9xtHmnW7WhyXO2 ENKin8k4Lh12Y32lL3Xi dXA+MMHcuDF6tSZ3 bD2vHbArRnZ1AFgyH888 AgYcuWLlCnrpm3zce6sk gDa1SzT0YDStpqYqxBsn WAX8p9CvJq52V70e IHdpZHRoPSIxNSUiIHZh gDjigj2cyZ0cLq3+PGNv xKN5sWA3sJ8oCpYpLuV2 JVxiK389UgRvmYXh Ccahj7zmf9yqtNy1XzYq DIBddaVtyPrfLOS3m7Kv Jf43W0JmrRzav8TaDnj3 fp94aNHty0A3zBR4 O6DyWSOadhdfkFLpuBqn WD3hZTHbfgvgLZGuxB2l ZCGtS5h5KwSqHxU8CJaq Q0WrykG3BDExvJYr QVzoAVU4A78qr3U2IJKt LEDsWKG0jVC8yI6slCgj bjogbGVmdDsgdmVydGlj LQfkRHyhB110SVMk mZvvMTPlwQ2tLTEosWGu qZwqOZ7uGHDftzsyCzON H7SBRqkzZ3sQStKTNN3m QTwvdGQ+PHRkIHN0 cJctRLxbMVYcaZ2yYLWi P1s2BdFdQkV6BHmeL5Is YOXrmyjxYi16cY9xSxFp PnG2CQzxH1PvqmN2 QTViaNChKLukIOL0Y36j l1P6PCXfIWOzJLG8eXY6 wG4llXeptmfeiDZtfLwa dmVydGljYWwtYWxp I901ZBYimIozQqX9NmT7 OyI7BZF6H1CuTxo9YDPg kPorGG4kiEGcNOjgUw7u hBxfzOedRF0mAOCh plciJLYqjY2tAWIvyULn vJtnZK7gTTFnfwxza116 QbRkVJC6ADWxoJNrY1Qa qV3eAzUgZJStLSXp K2SugEKqGAogJ587VIjb NpP1XHQxxvUeV9SgYBTz rKjlEuG9a3Y9Oq3eJKCP ZWFyczwvdGQ+PHRk KOY9lZrzZIasBFAtnD0s DJMnF8e6QxGcBmH9HPxv F4NnBGInjvslQt68iR6p McEzIuI1ZRawL5Nb gmN0RYMowQAnIWinFHA8 M15td5D8LCSmUOVwPDJ0 fEC8mR2bzNxmelcwmHRt dDsgdmVydGljYWwt MLtgQ586XTParZjuPaEf bWFsZTwvdGQ+PHRkIHN0 iXmfXOruRAWhiR9hZOHv M9w7PbBzAgT5GYkh G2QlCKOccnslVj29zK6f PtRgEiK6YRdyK2AqdeB3 GQDykGZlFPdxKJJ8E25n c3I0LLItDZFdZAK3 mAU0zH0mwFfmjkvzqLNf dDsgdmVydGljYWwtYWxp C990FBLuxTtxPhXoEUDm KZ1zwDgmfMR+PC90 db91Q3WsKmotLyk2UHJf MBU4pLE6lG2hHWUxSWdi v7W5zVR6U2RunnGhvs4c d6cqFPGiOZudS02n jJSjn3H3XNLcxKY0NNGn vWkdJjFzdY04Wna+PGNv lMhsa6IcPqkqe9rzm7dq vKi8FfIfUCUxmfQu lFniZPS4k9KjRw79X12d IHdpZHRoPSIzMCUiIHZh nHwwfc0qiF2lTl1+PGNv wZQ3uGJ8aK2mPoCe LsQ6BZhyV463WlNrcHOs Uiusj5fkl3eijXn7ShYz YYPpqaSsnGsuKQH7f1Ca Ww79W4DarLmtb3Xi Gld9oc42cMQsp1U2pXC8 R9TvDFPadoczrWErmDxc QJ9iHANkjnutJAQisO1h BSRvV7n8XkLxUlG6 MAdgF8YxueY7YPLfmQUy WKYhyMPVoO0jmsffm1am czxlGzCmBXUtSVs0CHe1 LWFsaWduOiBsZWZ0 MxB3IGV3vMFtvF2glGjk hfibgF2qEkk+CYq3u5mm xUPmSC0drBY7UG65UZ07 vJNcp2H4ePI7V9Kl GFJjuizsvuofjKD1DEHs RVWmrJ66Bn2txDlnZb2c XZMlCPL7HJFodCCsX5Hh hM9cCvZrAAFqUOBt X9WzpSFqBGtmF055TWqd ZcK0GFLxqpHtW8GnAFLu pNnvGlG1l1M7Xc6TPB42 KI79YU51sAQqt5B5 wWH1Q8TjFZCuvkxyrmvw oFD4NJYhNFBmoC88Fe3p fSkkAv8cPVPxNAP3CLBe aRUcS0BrvF6fLkCj XWXuWIRuT6UafUGuTPfp U306GSihKgM0EXQaplFe J1OlZPQopNakBhT2n7E2 Od8BFr38BK59WX18 lIAsb0O2uCL0Q0BmJQWo esrvmowxvBT3BCMjHVVh aL75Bv5qmVpzWs4qMNQj HVS7GFJhlBTqG1Ad jQ0cOuLgOLZdGQUzT1Vk hDGxVObuL074XWipBrU4 SLKzkgHeQ4EvGUHpaLqt SaK7c1D6Oz6YIMuy fka0Q7YfXmwmeJG+PC90 BUOxUY62nDEwoSWen3kh hCn6WcLxFCSuEHD2aWbp KMcgl4GwTBYgC47h bGFw (more content not included)... Normal [facility] Discharge Instructionson Discharge Instructions [id number] 4#1.00CD:127 Normal [facility] ED Clinical Summaryon 2020 ED Clinical Summary [id number] ED Clinical Summary Person Information Name: HALYE SWANN [facility] Age: 26 Years : 1995 Sex: Female Language: Northern Irish PCP: Yomi Tafoya MD Marital Status: Single Visit Id: Visit [...] 09/17/2021 22:37:15 09/17/2021 22:37:15 09/17/2021 22:37:15 ADDRESS: [address] [place] [phone] PHYS DOC NOTES: MEDICAL INFORMATION: Prescriptions Given: [...] Follow up: With: Address: When: Radha GARZON [facility], [address] [place] [address] [place] [address] Business (1) In 3 days 09/20/2021 DIAGNOSIS: Threatened miscarriage Normal [facility] ED Note-Physicianon 09-18-20 ED Note-Physician Basic Information Time Seen: Juwan Peralta PA-C 09/17/2021 19:34 Chief Complaint pt. presents to the ed with c/o vaginal bleeding that started last friday. Pt. is about 7 weeks and supposed to see Dr. Breaux out of [place]. Pt. had covid about two weeks ago. [...] Making Patient seen and evaluated with physician historian research assistant student. I had a xcbp-mi-rklu interaction with the patient. I personally performed [...] sent for ultrasound which is discussed with sonar technician. Findings most consistent with inevitable miscarriage. Lot of bloody debris noted on ultrasound. No clear gestational sac. Results are discussed the patient. She will be set up for repeat quantitative hCG in 2 days. She is to follow-up with [facility]. She is resting comfortably. Declined any pain medications. Of note she is Rh+. Patient was encouraged to return to the ED if symptoms worsen or change. Assessment/Plan Threatened miscarriage (O20.0: Threatened ) Ordered: [facility] Prescription, Quantitative beta hCG, Quantitative beta hCG To Be Drawn on 09/19/[address] Garzon DX: Threatened miscarriage, Print Requisition, Supply Orders: ABO/Rh Automated Diff Basic Metabolic Panel Beta hCG Quantitative CBC w/ Auto Diff eGFR UA With Cult Reflex US (more content not included)... Normal [facility] Comment on above: Result Comment: Elec [...] Document Reviewed: 01/23/2018 Elsevier Patient Education ? 2019 [employer]. Normal [facility] ED Patient Summaryon 021 ED Patient Summary [address] [address] Patient Discharge Instructions Person Information Name: HALEY SWANN Age: 26 Years Arrival Date: 09/17/2021 19:04:40 Discharge Diagnosis: Threatened miscarriage Primary Care Physician: Yomi Tafoya MD Provider Information Primary Provider: Roe Ewing DO [employer] Keeper:Juwan Peralta PA-C The exam and treatment you received in the Emergency Department were for an urgent problem and are not intended as complete care. It is important that you follow up with a doctor, nurse practitioner, or physician?s historian research assistant for ongoing care. If your symptoms become worse or you do not improve as expected and you are unable to reach your usual health care provider, you should return to the Emergency Department. We are available 24 hours a day. HALEY SWANN has been given the following list of patient education materials, prescriptions and follow-up instructions: Follow-up Instructions: With: Address: When: Radha GARZON [facility], [address] [place] [address] [place] [address] Business (1) In 3 days 09/20/2021 In the event that this physician does not participate in your insurance network, please consult with your insurance company to find a nearby participating provider. Patient Education Materials: Threatened Miscarriage A MESSAGE TO ALL PATIENTS REGARDING OPIOIDS PRESCRIPTION OPIOIDS: WHAT YOU NEED TO KNOW Prescription opioids can be used to help relieve jswbjnfl-cb-qzjtnn pain and are often prescribed following a [...] be struggling with addiction, tell your health neonatal critical care nurse and ask for guidance or call [facility] [employer] (more content not included)... Normal [facility] Prescriptions/Work Noteson 1 11-18-2020 Prescriptions/Work Notes [id number] 4#1.00CD:127 Normal [facility] US 1st Trimesteron 09-18-2021 US 1st Trimester [...] Transabdominal Ultrasound Performed Transvaginal Ultrasound Performed Normal [facility] US Transvaginalon 09-18-2021 US Transvaginal Exam Date/Time: 09/17/2021 22:17 EST Reason for Exam: Vaginal Bleeding Report Please refer to the report of ultrasound of on 09/17/2021. FINAL REPORT Dictated: 09/18/2021 8:30 am Chris Oro M.D. Signed (Electronic Signature): 09/18/2021 8:30 am Signed by: Chris Oro M.D. Transcribed by: PIO Technologist: INDIRA Normal [facility] ABO/Rhon 09-17-2021 ABO/Rh Positive Invalid Interpretation Code [facility] Comment on above: Performed By: #### 2 [id number] ####[facility] [address] [place] [address] Auto Diffon 09-17-2021 Basophils/100 WBC (Bld) 0.5 % Normal 0.0-2.0 [facility] Comment on above: Order Comment: Order Added by Discern Expert. Performed By: #### 2 110189, 98304103, 6374784, 7519694 ####[facility] [address] [place] [address] Basophils/Leukocytes Auto (Bld) [Pure # fraction] 0.1 E9/L Normal 0.0-0.2 [facility] Comment on above: Order Comment: Order Added by Discern Expert. Performed By: #### 2 315559, 75389765, 7443616, 7812813 ####[facility] [address] [place] [address] Eosinophils/100 WBC (Bld) 2.1 % Normal 0.0-8.0 [facility] Comment on above: Order Comment: Order Added by Discern Expert. Performed By: #### 2 489502, 67017485, 6722055, 2432671 ####[facility] [address] [place] [address] Eosinophils/Leukocyt es Auto (Bld) [Pure # fraction] 0.2 E9/L Normal 0.0-0.5 [facility] Comment on above: Order Comment: Order Added by Discern Expert. Performed By: #### 2 329462, 28990162, 8259429, 1799481 ####[facility] [address] [place] [address] Lymphocytes/100 WBC (Bld) 34.5 % Normal 14.0-50.0 [facility] Comment on above: Order Comment: Order Added by Discern Expert. Performed By: #### 2 759054, 15127850, 5575783, 4810949 ####[facility] [address] [place] [address] Lymphocytes/Leukocyt es Auto (Bld) [Pure # fraction] 3.7 E9/L Normal 1.0-4.0 [facility] Comment on above: Order Comment: Order Added by Malcolm Expert. Performed By: #### 2 567469, 70626988, 3587635, 4944427 ####[address] [place] [address] Monocytes/100 WBC (Bld) 5.0 % Normal 4.0-14.0 [facility] Comment on above: Order Comment: Order Added by Malcolm Expert. Performed By: #### 2 964374, 11189276, 1490161, 8328553 ####[address] [address] Monocytes/Leukocytes Auto (Bld) [Pure # fraction] 0.5 E9/L Normal 0.2-1.0 [facility] Comment on above: Order Comment: Order Added by Discern Expert. Performed By: #### 2 859431, 55796802, 9247628, 3859500 ####[address] [place] [address] Neutrophils/100 WBC (Bld) 57.9 % Normal 36.0-75.0 [facility] Comment on above: Order Comment: Order Added by Malcolm Expert. Performed By: #### 2 132703, 01818007, 9055528, 4423668 ####[facility] [address] [place] [address] Neutrophils/Leukocyt es Auto (Bld) [Pure # fraction] 6.1 E9/L Normal 2.0-7.5 [facility] Comment on above: Order Comment: Order Added by Discern Expert. Performed By: #### 2 530067, 80082031, 5784610, 3995541 ####[facility] [address] [place] [address] BMPon 09-17-2021 Creatinine [Mass/Vol] 0.7 mg/dL Normal 0.5-1.3 [facility] Comment on above: Performed By: #### 2 471070, 77203893, 7525862, 9864943 ####[facility] [address] [place] [address] Urea nitrogen [Mass/Vol] 8 mg/dL Normal 5-21 [facility] Comment on above: Performed By: #### 2 250920, 61384877, 0322466, 5155730 ####[facility] [address] [place] [address] Urea nitrogen/Creatinine [Mass ratio] 11 No Units Normal 10-20 [facility] Comment on above: Performed By: #### 2 677890, 25301244, 1831905, 8917201 ####[facility] [address] [place] [address] Anion gap [Moles/Vol] 15 mmol/L Normal 6-16 [facility] Comment on above: Performed By: #### 2 056715, 55985740, 6307174, 9536505 ####[facility] [address] [place] [address] Calcium [Mass/Vol] 9.3 mg/dL Normal 8.9-11.1 [facility] Comment on above: Performed By: #### 2 278382, 40719032, 2834616, 3645050 ####[facility] [address] [place] [address] Chloride [Moles/Vol] 100 mmol/L Low 101-[address] [facility] Comment on above: Performed By: #### 2 962804, 70108593, 6496672, 2388626 ####[facility] [address] [place] [address] CO2 [Moles/Vol] 23 mmol/L Normal 21-31 [facility] Comment on above: Performed By: #### 2 800481, 00446009, 7048020, 9318752 ####[facility] [address] [place] [address] Glucose [Mass/Vol] 98 mg/dL Normal 55-199 [facility] Comment on above: Result Comment: If t his glucose result represents a fasting glucose, interpretation should refer to the following reference range: 55-99 mg/dL Performed By: #### 2 042121, 49082618, 1624953, 0216655 ####[facility] [address] [place] [address] Potassium [Moles/Vol] 3.7 mmol/L Normal 3.5-5.3 [facility] Comment on above: Performed By: #### 2 243989, 87496401, 5214944, 0200775 ####[facility] [address] [place] [address] Sodium [Moles/Vol] 134 mmol/L Low 135-145 [facility] Comment on above: Performed By: #### 2 559111, 45427429, 5361469, 1862558 ####[facility] [address] [place] [address] BhCG Quanton 09-17-2021 [place] [address] m[IU]/mL High 1-3 [facility] Comment on above: Result Comment: GEST ATIONAL AGE HCG RANGE (mIU/mL) NON- <1-3 0.2-1 WEEKS 5-50 1-2 WEEKS 50-500 2-3 WEEKS 100-5,000 3-4 WEEKS 500-10,000 4-5 WEEKS 1,000-50,000 5-6 WEEKS 10,000-100,000 6-8 WEEKS 15,000-200,000 8-12 WEEKS 10,000-100,000 Performed By: #### 2 292856 #### [facility] [address] [place] [address] CBC w/ Auto Diffon 1 Erythrocyte distribution width (RBC) [Ratio] 14.8 % High 10.9-14.2 [facility] Comment on above: Performed By: #### 2 877034, 74371866, 0086716, 8369388 #### [facility] [address] [place] [address] Hematocrit (Bld) [Volume fraction] 37.9 % Normal 34.0-46.0 [facility] Comment on above: Performed By: #### 2 225442, 12263411, 7192877, 0390187 #### [facility] [address] [place] [address] Hemoglobin (Bld) [Mass/Vol] 12.4 g/dL Normal 12.0-16.0 [facility] Comment on above: Performed By: #### 2 679971, 61884397, 8163923, 7185247 #### [facility] [address] [place] [address] MCH (RBC) [Entitic mass] 27.4 pg Normal 27.0-34.0 [facility] Comment on above: Performed By: #### 2 118680, 61383790, 1656307, 2612379 #### [facility] [address] [place] [address] MCHC (RBC) [Mass/Vol] 32.6 g/dL Normal 31.4-36.0 [facility] Comment on above: Performed By: #### 2 360474, 94803428, 4470126, 5027826 #### [facility] [address] [place] [address] MCV (RBC) [Entitic vol] 83.8 fL Normal 80.0-100.0 [facility] Comment on above: Performed By: #### 2 906964, 33931573, 1971640, 1612945 #### [facility] [address] [place] [address] Platelet mean volume (Bld) [Entitic vol] 8.5 fL Normal 6.4-10.8 [facility] Comment on above: Performed By: #### 2 648768, 30272721, 0350829, 7436090 #### [facility] [address] [place] [address] Platelets (Bld) [#/Vol] 237.0 E9/L Normal 150.0-500.0 [facility] Comment on above: Performed By: #### 2 382242, 61590765, 8812409, 6285252 #### [facility] [address] [place] [address] RBC (Bld) [#/Vol] 4.5 E12/L Normal 4.3-5.9 [facility] Comment on above: Performed By: #### 2 251385, 46673916, 8870488, 6213731 #### [facility] [address] [place] [address] WBC corrected for nucl RBC Auto (Bld) [#/Vol] 10.6 E9/L Normal 4.0-11.0 [facility] Comment on above: Performed By: #### 2 687958, 23170133, 1515957, 3126182 #### [facility] [address] [place] [address] Consent for Treatmenton Consent for Treatment [id number] #1.00CD:127 Normal [facility] eGFRon 09-17-2021 GFR/1.73 sq M.predicted among blacks MDRD (S/P/Bld) [Vol rate/Area] mL/min/{1.73_m2} Normal >=59 [facility] Comment on above: Order Comment: Order added by Discern Expert. Result Comment: eGFR is race adjusted. AA=. Performed By: #### 2 068840, 90388600, 3743256, 9184298 ####[facility] [address] [place] [address] GFR/1.73 sq M.predicted among non-blacks MDRD (S/P/Bld) [Vol rate/Area] mL/min/{1.73_m2} Normal >=59 [facility] Comment on above: Order Comment: Order added by Discern Expert. Result Comment: Household Refrigerator Mechanic bryant kidney disease could be indicated at eGFR's of less than 60 mL/min/1.73m2. Kidney failure is indicated at less than 15 mL/min/1.73m2. Performed By: #### 2 121336, 30917624, 8996445, 1219327 ####[facility] [address] [place] [address] ED Note-Physicianon 07-29-20 ED Note-Physician Basic Information [...] Yomi Tafoya In 3 days 07/26/2021 EDT [address] [place] [address]- Business (1) Additional Instructions: stitches to be removed in 7-10 days Patient Education Laceration Care, 7-10 ([id number]) Attestation Patient seen and evaluated by the physician historian research assistant. Attending physician was present in the emergency department and supervised care. This report was transcribed using voice recognition software. Every effort was made to ensure accuracy, however, inadvertently computerized softball core molder mistakes may be present. Appropriate healthcare PPE [...] week, 0 (more content not included)... Normal [facility] Comment on above: Result Comment: Elec tronically Signed By: Juwan Peralta PA-C\.br\Date and Time Signed: 07/23/21 21:57 EDT\.br\Electronically Co-Signed By: Indra Grimm MD\.br\Date and Time Co-Signed: 07/28/21 22:13 EDT Coding Summary.on 07-24-2021 Coding Summary. CD:[id number] Gh0bWw+PGhlYWQ+PE1FV YVgK27frXZvvZ4JL9dPF P4VYBLJGZHCSW5XEJ9nw PM3EDuyG7DnibVx MtmjuHLeWF23LCg4VCF1 pFnkZDqxuN7ddQQxV1c1 FrBiTH34jK64FCzbRJZd HuQ1TxCdfmebzPZa Z5rjUvEezSMtRay+PHRh YmxlIHdpZHRoPScxMDAl TdWlwWrcWH4vFd2jBTVs LWNvbGxhcHNlOiBj k7ftLOLbSXqpPI4bcInm W5ZebJX2CLWcy1z5Lu19 dHI+RPToPUP8rMaoAZnn q194EhKjt5dvKOB6 uQNmXWpaVHL2H70eg8A5 QTUcHQOpCQT5sBF2uC1a yQevoovpX5LujTTzQmC7 NGE2sXUikC6rwDxp ocrdoJ6hYkc+F92BYK9F IQJVPW7OLlg7U1IhPyal dHI+EG05HTDpFN39sEYm rIUoj1ymcGd9UzTr EDLuKHB9nIxfMXhno6Mj APLyF65kiSVzr9Q1QKTu qTqtlMWfPfZbcSA2hS3i WFbloufqg3bptgvm Jhrze2pevd97hF05D80h NEmxYFFlSFJ3XXOsUSFq tYmrry2mvI5dUq1+IDxj b7zay6qhoBr1YxJh EANhdmQwjPgkUDR7v8Xd Am00F8KkaGvpv0TtTsi2 zf52aAYxu6G8oMH0LVoq GSHjuD7kZRhwLsM6 KSOlFiCaeM64zVVfSFot Xh4ydRpbePquHI5aRIAb spedVAMupN0jZIRppTJf iMgaUM6cIYHcmlxg e143WvItFRU0DKAbbXTz S5OguY1dXsBlQFXxERMf I9ZbnJRmNZvhW033XHyk EdN1VRNiufUoV0Zj TLHgaKdpSoI4e8D1Tr5Y c4NcsjslXEQ2QXtnCAA3 HpA6MwBqHeM7J4OpPob8 WMAzpJrzQI7tG1Bg JEZxfqgerkbamQT9PFWh GXBvqQ10iCGmMJdfDb9g j5M6k085XNAjJPOwpQ25 Kz7xbWqwLWBibBQD jI0itvfey4vsogpsRvIx NHTwZPu5INm1DYLbxFoh VfGrVON1OiG4CZU4fKBc mQ5wuVxdieptnQ6r Oyc+A10ktE3oRFA1OLX3 bgfdVRLljqBwAU89WA68 X1EpOzmxgURuwAA+PGRp ojFukZcyRG3eQmVj j9mgr7QcPYrjK9YiYJBj BFkgFev3BFBkSWY9uSI8 iC5tSZQnDGqmy8H2gTU6 I1RntuQjkt5nc5bk CWBjTYtuP93inFGhj0G6 PNYbiBK5RHRsqJngGeIo cF11Cjv+LSMfeCwsu7Ks Yvvdz0det0nseWv8 IjMwJSIgdmFsaWduPSJ0 y3HhBh77X25uKVttVEVf XSYiQQTeNIChmRszhf1t oE0yLs8+PGNvbCB3 cFW6aB8gVBZlTdD0SXap R928JgYjbXMsSuwkb9tr m0stfEg2ZsLlSWXbibCu rJvwNMW6s2HfTu44 S14xBNzmIBZmSSWnYGYv OMXbuClytp3ysR0tVr6+ MA4li6qgjk65dS73tAZ+ YTHxTUC8rTucOVaj ZURwoL0lBDxkMsP5WJUs JbQqoR25pMAhZHorRj0k rBcrcMdjAX2yLVHbomnr h877GbCxn3fzPLYx iEBpFBhqXOX8P70yz9G0 YPVoYXBtUHA6jLX1uE0n bGlnbjogbGVmdDsgdmVy oDlyRCkkZYyrI516 IHRvcDsnPlBhdGllbnQg ChXwOAf3P8HpPyh0PQGo mYjoFK4eeGJpOSbeNd0s dXusuOziGW0lVNCc svsbz828NwGzd8mkFXCi iXPsPKiuIWU8I29ow3X6 USKqTIOlFRV8fBB5oL9x bGlnbjogbGVmdDsg xdYvxOgkQSaiNRgxI493 IHRvcDsnPkJpcnRoIERh rXS0SD05TK12xDIlr3X9 yVD9C8WvUMFuoisp snbuwFM6PDHuAFGffD45 Kg6yzKzvMt1pIXEmVUF5 XCIfmHXyQ9CjbS4wUxNw SIPlXFSdN9MvgFIl PAujJ669JSplNgF3KXWz piNxS8AxNHMwaBmtBzE1 x7F5Vo6PH3A0ZJ99MD76 cCJxw7Z4dKO2O4Sz KTCyqobsnehddPR7EKRc FBAzrN82Co7hePimEr9q HUTtHSG9SVVlnDNoM5Ga hX8lIjXbKNAwTRSt T4PerVYaTNwyX643MEpx BeU0TNVujlBgG4UyLJEu tCkdAqI3u0G8To2KWEs6 HA00LV26aBMjl2G3 fMD5H4XaHIQatqdcmwsq hRO7SKBhMVFoxB96Cf7i pFtxRf7qVPMiPRT1HDGb iIWcM4IioR1vSfUa IDZrKGTpX5VcmIDbVXwz U942OWfoHnJ2LCLqjyWi W4KbZPXcaIcbSvA8w7T0 Sy3MXSWhTO06HBD2 vYI5PM40RW80Q7UhJahb dGFibGU+PHRhYmxlIHdp ZHRoPScxMDAlJyBzdHls HZ2vSm5rFXFxDZAe uDodcXRcSlOhi7qvJKSp LDhxKJ5znUdpA6XyiEA2 LIPtl1w7Rt82D28eB1Pi dXA+AIUrsXG5eKW3 oF9sXhBnXaV8EIsyY016 PqUprUZfJmkan0wan3yf vGf5RrS1THOpsdMsjTye ZLH2l1FfEi42A53d IHdpZHRoPSIxNSUiIHZh xEszhb1dyZ7vIv6+PGNv mCZ6hZS7jD8eMoYqHxD0 JYzsU438BaXzyUEe Vvviv2nvb6qolDx2StEj NMZhmxFfqDtyCQW7c7Me Wd65F7AomPwzg5LxJvf4 vk63kASmi1C0gVT3 S3CqGXAlfgqqxBGtmNcd JN2nZRLcdymqSLJnoH7m FQLhD1q3XzJdKzG3AYqf T4UusqE4ATEscHQo JJvmPPR9I69hm4K9PCRo YRLaEUP0hXT3dJ2brRgi bjogbGVmdDsgdmVydGlj UYakPYmdH253VRCk xIhlHOLjkL2eCYOhhYAu hDlwVL3dGOVyohitQrKJ W9YZUvbiB3oNSwXMQE9i QTwvdGQ+PHRkIHN0 wPyhCLjgJXTdwI9kAEBq V3m6LmJnXtB9THmgO3Fg PLTfxrjdKt45tJ0lOgOb CpW0FFqzF7NmwyZ5 LBFlhGGyPMpnCRY0K80l f6U2RKLuMVEsAZR0gWU5 gY9ehFywslnwfFVxsPow dmVydGljYWwtYWxp Z269RKEznPltGyI4TnD8 YaK0DCR6V9XtRhz7INWx rXieQR3zmVMuSKncVy8i qIinnKmnWK3dQMPb hqpfBUXlzX0tPKHzxXDw nAouHT0xZZJujxzwh237 BcSrGCG1RTDcbIUfO6Wa dN9iKeTsEJIzWTNp S6YdxCFyMVooF114IMuz HdG8MUUgpeOjR5QrGWIg bCntOuG7d0P3Sj4kOIVL ZWFyczwvdGQ+PHRk HYR5pXgfEPqnDQAxmY1s EDCtM4f6ZpGcZpA0WCoe N5GuALAitfeqDd28xK0i FcYbWaD1UPzyE2Yn zkK8VELglOCxJGnlOEL6 X31hn6V0NVUzBSFoZHM7 mSS6nP6fsEfowuqwnOGj dDsgdmVydGljYWwt LBpxM381SXEfdWzuTbNf bWFsZTwvdGQ+PHRkIHN0 zWqeVQslFHZvhF9hSJCe C5x5SuRbXbM5UUtk D4OuGHTjmrglZz63oD6d PeLwTtR3ZBehF1DuakL0 JEBljZRzZVzbCSE5I76r r7Y9XZElEYPyQDB3 lWN9qR6jlPgpsvsgkAIl dDsgdmVydGljYWwtYWxp Z270PKAqdRbaAdDgBWMa HS4gaXwioJN+PC90 dp85T2OtFztyByj1GTNa VCD9jNS1qZ1wEZHxHZjq z6A6mFC9Q3AimqTvrg3g a4nrFWBqTGhxP36a oOIjq8N7FJXvqGR5LEOo tXfoNqDvbT00Vut+PGNv eMvmg9HyWzwlx3oqn4es dZe4MiLmZKKxxbMx pVnmZII4v7AvSv72K40m IHdpZHRoPSIzMCUiIHZh xQdrfl7faF3wId1+PGNv aVV3tVT2mM5wVvOd TvK6HZwnU788MgNgiIDi Qpytr5cpx2dayEv8AsUe IGRxcsTymBfuUXD3z1Fg Zk97G0RjeQzcq9Ql Pji1yd41pKXbn9Q1vYP7 M5EhRMIooiagzANcqWfq WO1oFHXhpjfhKNDtdE5e BKZvC0f9XgYrVfS1 FYczY0XszvK1BFXfgQLf EHUxgALJnI8xkomcd8om kbldQqKtZRLrZHv7MHb2 LWFsaWduOiBsZWZ0 LeL7SNW3oQHspI1cxSnb yhqshE0tEdi+JLb7a0vi gKMhAV6ekMK9CD68OG28 iHRlk4P4jPY2Z0Nt WZSusvtlrffevBO2KGLa XEUbhP83De8gvVijGp7x PCAsIJO9CRDbuIDeM8Vn gD2eItLaFWDyBQXg A3YlnNXsONiyZ709CLfr DpO7ZLZsfuAcR5XnXAGq vMtlFuI0a6H1Ik6DRX52 OK88YQ55hIFni9W2 yQA3T5IjDIEjfqefraej zNU1XFOoWWCiuZ53Tg3t eVcpYd9oKTLqYAE2WNHm wEHaU9BojW2mFdZc EPPlCZKwG5OulEGzVAww P014FNcaTwX3SFPuxoPa A9MrQVPxlInbItJ1a4E2 Wa6ECk74RJ17DN47 aPQyu4A6hCU2Y5KwZRQz duludclemXX0UBThQZDi dA71Jp0dzBpvJq5jHUKs QVS1NWPknDMtN9Ws dK2kRqVqXOOfLAVuP8Qm xNXqKJrlI695AQplXjG9 DMHvtkLtM8OhKMBslZyq OjF6h4I9Rv9ENTpt rka3V7KwOyhkbFA+PC90 DBImRL76vKVulEKjt4pv rSh1IcQfMXEfSWW4xSss HWncq0ZdRQTaH87x bGFw (more content not included)... Normal [facility] Discharge Instructionson Discharge Instructions [id number]#1.00CD:127 Normal [facility] ED Clinical Summaryon 2020 ED Clinical Summary [address] [address] ED Clinical Summary Person Information Name: HALEY SWANN [place] Age: 26 Years : 1995 Sex: Female Language: Northern Irish PCP: Yomi Tafoya MD Marital Status: Single Visit Id: Visit [...] 07/23/2021 22:12:54 07/23/2021 22:12:54 07/23/2021 22:12:54 ADDRESS: [address] [place] [id number] [facility] DOC NOTES: MEDICAL INFORMATION: Prescriptions Given: Medications to Continue with No Changes Other Medications albuterol (Pro-Air HFA CFC free 90 mcg/inh MDI) 1 Puffs Inhalation Once as needed for wheezing. famotidine (Pepcid 20 mg Tab) 1 Tablets By Mouth 2 times a day. Refills: 0. sertraline (sertraline 50 mg oral tablet) PATIENT EDUCATION INFORMATION: Instructions: Laceration Care, 7-10 ([id number]) Follow up: With: Address: When: [place] [address] Business (1) In 3 days 07/26/2021 Comments: stitches to be removed in 7-10 days DIAGNOSIS: Finger laceration Normal [facility] ED Patient Education Noteon 07-24-2021 ED Patient [...] it as soon as possible. Only take uhdd-kvh-ukthzhj or prescription medicines for pain, discomfort, or [...] Document Re-Released: 10/09/2009 ExitCare? Patient Information ?2009 [employer]. Normal [facility] ED Patient Summaryon 021 ED Patient Summary [place] [address] Patient Discharge Instructions Person Information Name: HALEY SWANN Age: 26 Years Arrival Date: 07/23/2021 20:49:47 Discharge Diagnosis: Finger laceration Primary Care Physician: Yomi Tafoya MD Provider Information Primary Provider: Indra Grimm MD Advanced Storeroom Keeper:Juwan Peralta PA-C The exam and treatment you received in the Emergency Department were for an urgent problem and are not intended as complete care. It is important that you follow up with a doctor, nurse practitioner, or physician?s historian research assistant for ongoing care. If your symptoms become [...] Address: When: Yomi Tafoya [address] [place] [address] Business (1) In 3 days 07/26/2021 Comments: stitches to be removed in 7-10 days In the event that this physician does not participate in your insurance network, please consult with your insurance company to find a nearby participating provider. Patient Education Materials: Laceration Care, 7- ([id number]) A MESSAGE TO ALL PATIENTS REGARDING OPIOIDS PRESCRIPTION OPIOIDS: WHAT YOU NEED TO KNOW Prescription opioids can be used to help relieve ddrjgqtv-zk-qghzzf pain and are often prescribed following a [...] be struggling with addiction, tell your health neonatal critical care nurse and ask for guidance or call [facility] Na (more content not included)... Normal [facility] Vaccinationson 07-24-2021 Vaccinations [id number] 2#1.00CD:127 Normal [facility] Consent for Treatmenton 07-11 Consent for Treatment [id number] #1.00CD:127 [facility] Vital Signs Date Time Vital Sign Value Performing Clinician Dariel peñaloza 10-04-2024 09:17-0500 Body mass index (BMI) [Ratio] 34.84 kg/m2 Lilli Dietz Phone: [facility] 10-04-2024 09:17-0500 Body weight 92.08 kg Lilli Victor Manuel PA Work Phone: [facility] 10-04-2024 09:17-0500 Diastolic blood pressure 78 mm[Hg] Lilli Victor Manuel PA Work Phone: [facility] 10-04-2024 09:17-0500 Systolic blood pressure 130 mm[Hg] Lilli Victor Manuel PA Work Phone: [facility] 09-27-2024 10:05-0500 Body mass index (BMI) [Ratio] 34.98 kg/m2 Lilli Victor Manuel PA Work Phone: [facility] 09-27-2024 10:05-0500 Body weight 92.44 kg Lilli Victor Manuel PA Work Phone: [facility] 09-27-2024 10:05-0500 Diastolic blood pressure 78 mm[Hg] Lilli [place] PA Work Phone: [facility] 09-27-2024 10:05-0500 Systolic blood pressure 124 mm[Hg] Lilli Victor Manuel PA Work Phone: [facility] 09-21-2024 11:44-0500 Body mass index (BMI) [Ratio] 34.35 kg/m2 Lilli Victor Manuel PA Work Phone: [facility] 09-21-2024 11:44-0500 Body weight 90.77 kg Lilli Victor Manuel PA Work Phone: [facility] 09-21-2024 11:44-0500 Diastolic blood pressure 76 mm[Hg] Lilli Victor Manuel PA Work Phone: [facility] 09-21-2024 11:44-0500 Systolic blood pressure 132 mm[Hg] Lilli Victor Manuel PA Work Phone: [facility] 08-26-2024 08:49-0400 Body mass index (BMI) [Ratio] 35.15 kg/m2 Radha Garzon DO Work Phone: [facility] 08-26-2024 08:49-0400 Body weight 92.9 kg Radha Ryann DO Work Phone: [facility] 08-26-2024 08:49-0400 Diastolic blood pressure 60 mm[Hg] Radha Ryann DO Work Phone: [facility] 08-26-2024 08:49-0400 Systolic blood pressure 110 mm[Hg] Radha Ryann DO Work Phone: [facility] 08-11-2024 11:58-0400 Body mass index (BMI) [Ratio] 34.3 kg/m2 Lilli GARCIA Work Phone: [facility] 08-11-2024 11:58-0400 Body weight 90.63 kg Lilli GARCIA Work Phone: [facility] 08-11-2024 11:58-0400 Diastolic blood pressure 74 mm[Hg] Lilli GARCIA Work Phone: [facility] 08-11-2024 11:58-0400 Systolic blood pressure 116 mm[Hg] Lilli GARCIA Work Phone: [facility] Healthcare Encounters Encounter Date Encounter Type Care Provider Facility Start: 10-04-2024 End: 10-04-2024 Bamboo flowsheet Lilli GARCIA Work Phone: [facility] Start: 10-04-2024 End: 10-04-2024 Bamboo flowsheet Lilli GARCIA Work Phone: [facility] Start: 10-04-2024 End: 10-04-2024 Office outpatient visit 15 minutes Lilli GARCIA Work Phone: [facility] Comment on above: 39 weeks gestation o f ; Third trimester Start: 10-04-2024 End: 10-04-2024 ambulatory LILLI RUSH Not Available Start: 09-27-2024 End: 09-27-2024 Bamboo flowsheet Lilli GARCIA Work Phone: [facility] Start: 09-27-2024 End: 09-29-2024 External Result Encounter Radha Ryann DO Work Phone: [facility] External Department Unsolicited Start: 09-27-2024 End: 09-29-2024 External Result Encounter Radha Ryann DO Work Phone: [facility] External Department Unsolicited Start: 09-27-2024 End: 09-27-2024 ambulatory LILLI RUSH Not Available Start: 09-27-2024 End: 09-27-2024 Office outpatient visit 15 minutes Lilli GARCIA Work Phone: [facility] Comment on above: Third trimester preg esa; 38 weeks gestation of ; Vaginal discharge; STD exposure Start: 09-21-2024 End: 09-21-2024 Bamboo flowsheet Lilli GARCIA Work Phone: [facility] Start: 09-21-2024 End: 09-24-2024 Bamboo flowsheet Lilli GARCIA Work Phone: [facility] Start: 09-21-2024 End: 09-24-2024 Clinisync Result Encounter Generic External Data Provider [facility] External Department Unsolicited Start: 09-21-2024 End: 09-21-2024 Office outpatient visit 15 minutes Lilli GARCIA Work Phone: [facility] Comment on above: 37 weeks gestation o f ; Third trimester Start: 09-21-2024 End: 09-21-2024 ambulatory LILLI RUSH Not Available Start: 08-26-2024 End: 08-26-2024 Bamboo flowsheet Radha Ryann DO Work Phone: [facility] Start: 08-26-2024 End: 08-26-2024 Bamboo flowsheet Radha Ryann DO Work Phone: [facility] Start: 08-26-2024 End: 08-26-2024 ambulatory RADHA RYANN Not Available Start: 08-26-2024 End: 08-26-2024 Office outpatient visit 15 minutes Radha Ryann DO Work Phone: [facility] Comment on above: 33 weeks gestation o f ; Third trimester ; Nausea Start: 08-11-2024 End: 08-11-2024 Bamboo flowsheet Lilli GARCIA Work Phone: [facility] Start: 08-11-2024 End: 08-11-2024 Bamboo flowsheet Lilli GARCIA Work Phone: [facility] Start: 08-11-2024 End: 08-11-2024 ambulatory [...] Facility:[facility]1 Start: 10-25-2022 End: 10-26-[address] RADHA GARZON . Facility:[facility] Start: 09-07-2022 End: 09-07-[address] RA LUND . Facility:[facility] Start: 08-17-2022 End: 08-18-[address] RADHA GARZON . Facility:[facility] Start: 07-30-2022 End: 07-30-[address] RADHA GARZON . Facility:[facility] Start: 06-14-2022 End: 06-15-[address] RADHA GARZON . Facility:[facility] Start: 05-06-2022 End: 05-06-2022 Patient encounter procedure MD Bo Cid Work Phone: [facility] [address] Start: 05-03-2022 End: 05-04-[address] RADHA GARZON . Facility:[facility] Start: 04-26-2022 End: 04-26-2022 Patient encounter procedure Radha GARZON [facility] Procedures Date Procedure Procedure Detail Performing Clinician Start: 10-04-2024 Urnls dip stick/tabl et rgnt non-auto w/o micrscp Lilli GARCIA Work Phone: Start: 09-27-2024 RECURRENT VAGINITIS (HTRX) Radha Garzon DO Work Phone: Start: 09-27-2024 Urnls dip stick/tabl et rgnt non-auto w/o micrscp Radha Covingtono DO Work Phone: Start: 09-21-2024 Urnls dip stick/tabl et rgnt non-auto w/o micrscp Lilli GARCIA Work Phone: Start: 09-21-2024 STREP GP B ZAHRA Generic External Data Provider Start: 08-26-2024 Urnls dip stick/tabl et rgnt non-auto w/o micrscp Radha Garzon DO Work Phone: Start: 08-11-2024 Urnls dip stick/tabl et rgnt non-auto w/o micrscp Lilli GARCIA Work Phone: Start: 12-25-2022 Delivery of Products of Conception, External Approach DR RADHA GARZON . Start: 12-25-2022 Drainage of Amniotic Fluid, Therapeutic from Products of Conception, Via Natural or Artificial Opening DR RADHA GARZON . Start: 12-25-2022 Introduction of Othe r Hormone into Peripheral Vein, Percutaneous Approach DR RADHA GARZON . Start: 12-25-2022 Repair Perineum Musc le, Open Approach DR RADHA GARZON . Start: 05-06-2022 Plain X-ray of bilat nathanl hands MD Bo Cid Work Phone: Plan of Treatment Date Care Activity Detail Author Start: 10-04-2024 End: 10-04-2024 Patient encounter procedure [facility] Comment on above: Arrived Start: 09-21-2024 End: 09-21-2025 Strep B DNA probe, amplification Strep B DNA probe, amplification Lab Routine Third trimester Expected: 09/21/2024 (Approximate), Expires: 09/21/2025 [facility] Work Phone: Comment on above: Expected: 09/21/2024 (Approximate), Expires: 09/21/2025 Start: 09-13-2024 End: 09-13-2024 Patient encounter procedure 09/13/2024 8:30 AM EST Routine [facility] [address] [place] [address] Lilli Rush PA [address] [place] [address] [facility] Start: 08-26-2024 End: 08-26-2024 Patient encounter procedure 08/26/2024 8:30 AM EDT Routine [facility] [address] [place] [address] Radha Garzon DO [address] [place], [place] [id number] [facility] Start: 08-11-2024 End: 08-11-2025 US for US OB ANATOMY SINGLE W US OB CERVICAL LENGTH Imaging Routine Screening, , for anatomic survey Expected: 08/11/2024 (Approximate), Expires: 08/11/2025 [facility] Work Phone: Comment on above: Expected: 08/11/2024 (Approximate), Expires: 08/11/2025 Start: 07-11-2024 Influenza vaccination Influenza Vacc ine (#1) [facility] CHLAMYDIA TRACHOMATI S (GENITO/STI) CHLAMYDIA TRACHOMATIS (GENITO/STI) Lab Routine STD exposure Ordered: 09/27/2024 [facility] Comment on above: Ordered: 09/27/2024 Neisseria gonorrhoea e DNA [Presence] in Unspecified specimen by ZAHRA with probe detection Neisseria gonorrhea DNA probe, direct Lab Routine STD exposure Ordered: 09/27/2024 [facility] Comment on above: Ordered: 09/27/2024 SURESWAB(R) ADVANCED VAGINITIS PLUS, TMA SURESWAB(R) ADVANCED VAGINITIS PLUS, TMA Pathology and Cytology Routine Vaginal discharge Ordered: 09/27/2024 [facility] Work Phone: Comment on above: Ordered: 09/27/2024 Immunizations Immunization Date Immunization Notes Care Provider George quan 07-23-2021 tetanus toxoid, redu avery diphtheria toxoid, and acellular pertussis vaccine, adsorbed Radhachaitanya GARZON [facility] Payers Date Payer Category Payer Medicaid [employer] [place] [id number] 2024-Present [address] [place] [id number] 2024 Private Health Insurance [facility] MEDICAID [id number] 2024 Medicaid [id number] 1996 Unknown [id number] 2.840.1.439752.3.579.2. 593 1996 Unknown [id number] 2.16840.1.091147.3.579.2. 593 1996 Unknown [id number] 2.16840.1.182048.3.579.2. 593 1996 Unknown [id number] 2.840.1.226090.3.579.2. 593 1996 Unknown [id number] 2.16.840.1.282484.3.579.2. 593 1996 Unknown [id number] 2.16.840.1.724748.3.579.2. 593 1996 Unknown [id number] 2.16.840.1.656010.3.579.2. 593 1996 Unknown [id number] 2.16.840.1.500224.3.579.2. 593 1996 Unknown [id number] 2.16.840.1.894325.3.579.2. 593 1996 Unknown [id number] 2.16.840.1.113037.3.579.2. 593 1996 Unknown [id number] 2.16.840.1.898215.3.579.2. 593 1996 Unknown [id number] 2.16.840.1.730550.3.579.2. 1259 1996 Unknown [id number] 2.16.840.1.576887.3.579.2. 1259 1996 Unknown [id number] 2.16.840.1.690828.3.579.2. 1259 1996 Unknown [id number] 2.16.840.1.328004.3.579.2. 1259 1996 Unknown [id number] 2.16.840.1.391988.3.579.2. 1259 1959 Self-pay [id number] 1958 Unknown [id number] Unknown [id number] 2.16.840.1.505284.3.579.2. 593 Social History Date Type Detail Facility Start: 07-23-2021 Tobacco smoking status Light t obacco smoker (finding) [facility] Start: 08-01-2023 End: 08-11-2024 Sex Assigned At Female [facility] Start: 1995 Sex Assigned At Female F [facility] Start: 01-10-2020 [facility] Start: 01-10-2020 History of tobacco use Cigarette Smo ker [facility] Start: 08-01-2023 End: 08-11-2024 Cigarettes smoked current (pack per day) - Reported 0.5 [facility] Start: 08-01-2023 End: 10-04-2024 Alcoholic beverage intake Current drinker of alcohol (finding) [facility] Start: 08-01-2023 Alcohol Comment 1-2 drinks les s than monthly in the past year, Caffeine intake: 2-3 cups per day coffee [facility] Start: 1995 Sex assigned at Not on file [facility] Start: 01-18-2024 [facility] Clinical Notes 08-11-2024 to 10-04-2024 RADHA Walton - 10/04/2024 9:10 AM RADHA Barton 09/27/2024 9:10 AM RADHA Barton - 09/21/2024 11:10 AM RADHA Barton - 08/26/2024 8:30 AM RADHA Arora - 08/11/2024 11:00 AM EDT Note Date & Type Note Facility 10-04-2024 History of Present illness Narrative Reason for Appointment: Patient ID: Haley Swann is a 29 y.o. female who presents for No chief complaint on file. Patient presents today for Return OB appointment. MEDICATIONS Current Outpatient Medications Medication Instructions metroNIDAZOLE (FLAGYL) 500 mg, Oral, 2 times daily, Do not drink alcohol while taking this medication MV-Min-Fe Fum-FA-DHA ( 1 PO) Take by [...] packs/day: 0.50 Average packs/day: 0.5 packs/day for 4.7 years (2.4 ttl pk-yrs) Types: Cigarettes Start date: 01/10/2020 [...] reviewed. Vitals: Estimated body mass index is 34.84 kg/m as calculated from the following: Height as of 02/17/23: 5' 4 . Weight as of this encounter: 203 lb. BP: 130/78 No LMP recorded. Patient is . ASSESSMENT & PLAN ICD-10-CM 1. 39 weeks gestation of Z3A.39 POCT urinalysis dipstick manually resulted 2. Third trimester Z34.93 POCT urinalysis dipstick manually resulted Return OB: Patient presents today for a routine obstetrics appointment. Patient is currently 39w1d . Patient states she is doing well but has complaints of being tired due to current . Patient has verbalizes frequent movement. labor precautions was discussed/given and patient was instructed to perform kick counts three times a day. Orders Placed This Encounter Procedures POCT urinalysis dipstick manually resulted Follow Up: Patient is to return to office in 1 week for routine OB appointment. Documented by RADHA Walton on behalf of: RADHA Walton documented in this encounter [facility] 09-27-2024 History of Present illness Narrative Reason for Appointment: Patient ID: [...] packs/day: 0.50 Average packs/day: 0.5 packs/day for 4.7 years (2.4 ttl pk-yrs) Types: Cigarettes Start date: 01/10/2020 [...] Exam Constitutional: Appearance: Normal appearance. She is well-developed. Genitourinary: Vulva normal. Cardiovascular: Rate and Rhythm: Normal rate and regular rhythm. Pulmonary: Effort: Pulmonary effort is normal. Breath sounds: Normal breath sounds. Abdominal: General: Bowel sounds are normal. There is no distension. Palpations: Abdomen is soft. Tenderness: There is no abdominal tenderness. There is no guarding or rebound. Musculoskeletal: General: No swelling. Normal range of motion. Right lower leg: No edema. Left lower leg: No edema. Neurological: Mental Status: She is alert and oriented to person, place, and time. Skin: General: Skin is warm and dry. Psychiatric: Mood and Affect: Mood normal. Behavior: Behavior normal. Vitals and nursing note reviewed. Exam conducted with a tree trimming supervisor present. Vitals: Estimated body mass index is 34.98 kg/m as calculated from the following: Height as of 02/17/23: 5' 4 . Weight as of this encounter: 203 lb 12.8 oz. BP: 124/78 No LMP recorded. Patient is . ASSESSMENT & PLAN ICD-10-CM 1. Third trimester Z34.93 POCT urinalysis dipstick manually resulted 2. 38 weeks gestation of Z3A.38 POCT urinalysis dipstick manually resulted 3. Vaginal discharge N89.8 SURESWAB(R) ADVANCED VAGINITIS PLUS, TMA 4. STD exposure Z20.2 CHLAMYDIA TRACHOMATIS (GENITO/STI) Neisseria gonorrhea DNA probe, direct Patient presents today for a routine obstetrics appointment. Patient is currently 38w1d with a Estimated Date of Delivery: 10/10/24. RTC in 1 week Documented by Maria Isabel Phoenix LPN on behalf of: lilli rush, pac documented in this encounter [facility] 09-21-2024 History of Present illness Narrative Reason for Appointment: Patient ID: [...] packs/day: 0.50 Average packs/day: 0.5 packs/day for 4.7 years (2.3 ttl pk-yrs) Types: Cigarettes Start [...] reviewed. Vitals: Estimated body mass index is 34.35 kg/m as calculated from the following: Height as of 02/17/23: 5' 4 . Weight as of this encounter: 200 lb 1.9 oz. BP: 132/76 No LMP recorded. Patient is . ASSESSMENT & PLAN ICD-10-CM 1. 37 weeks gestation of Z3A.37 POCT urinalysis dipstick manually resulted 2. Third trimester Z34.93 POCT urinalysis dipstick manually resulted Strep B DNA probe, amplification Return OB: Patient presents today for a routine obstetrics appointment. Patient is currently 37w2d . Patient states she is doing well but has complaints of being tired due to current . Patient has verbalizes frequent movement. labor precautions was discussed/given and patient was instructed to perform kick counts three times a day. Patient is doing well but has complaints of being tired and having maternal discomfort due to . Patient verbalized frequent movement and was instructed to perform kick counts three times per day. labor precautions were given, LARC consent was signed/declined, and GBS was obtained. Cervical check was performed and patient is 1cm dilated. Orders Placed This Encounter Procedures Strep B DNA probe, amplification POCT urinalysis dipstick manually resulted Follow Up: Patient is to return to office in 1 week for routine OB appointment Orders Placed This Encounter Procedures Strep B DNA probe, amplification POCT urinalysis dipstick manually resulted Follow Up: Patient is to return to office in 1 week for routine OB appointment. Documented by RADHA Walton on behalf of: RADHA Walton documented in this encounter [facility] 08-26-2024 History of Present illness Narrative Reason for Appointment: Patient ID: [...] Radha Garzon DO documented in this encounter [facility] 08-11-2024 History of Present illness Narrative Reason for Appointment: Patient ID: [...] of: RADHA Walton documented in this encounter [facility] Evaluation + Plan note No data available for this section [facility] Evaluation note No assessment inform ation available [facility] Work Phone: Evaluation note Diagnosis Third trimester state, incidental Screening, , for anatomic survey Encounter for anatomic survey documented [facility] this encounter [facility] Diagnosis 33 weeks gestation of Third trimester state, incidental Nausea Nausea alone documented [facility] encounter [facility] Diagnosis 37 weeks gestation of Third trimester state, incidental documented [facility] encounter [facility]* Diagnosis Third trimester state, incidental 38 weeks gestation of Vaginal discharge Leukorrhea, not specified as infective STD exposure documented [facility] encounter [facility]* Diagnosis 39 weeks gestation of Third trimester state, incidental documented in this encounter [facility] Dis[facility] instructions No data available for this section [facility] No data available for this section [facility] Chief Complaint and Reason for Visit Chief [...] Dates Bo Cid MD Attending Provider Active 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 Relationship Specialty Start Date End Date Yomi Tafoya MD [address] [place] [address] PCP - General Family Medicine 03/18/23 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 Relationship Specialty Start Date End Date Yomi Tafoya MD [address] [place] [address] PCP - General Family Medicine 03/18/23 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 Relationship Specialty Start Date End Date Yomi Tafoya MD [address] [place] [address] PCP - General Family Medicine 03/18/23 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 Relationship Specialty Start Date End Date Yomi Tafoya MD [address] [place] [address] PCP - General Family Medicine 03/18/23 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 Relationship Specialty Start Date End Date Yomi Tafoya MD [address] [place] [address] PCP - General Family Medicine 03/18/23 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 Relationship Specialty Start Date End Date Yomi Tafoya MD [address] [place] [address] PCP - General Family Medicine 03/18/23 Goals (unrecognized section and content) Goals may be documented in a n alternate section INFORMATION SOURCE (unrecogn ized section and content) DATE CREATED AUTHOR 05/07/2022 Sethi [facility] DATE CREATED AUTHOR AUTHOR'S ORGANIZ ATION 05/18/2022 [facility] DATE CREATED AUTHOR AUTHOR'S ORGANIZ ATION 01/06/2023 Alen Martinez [facility] DATE CREATED AUTHOR AUTHOR'S ORGANIZ ATION 10/06/2024 [facility] EPIC Reason for Visit [...] BE BASED ON THE PRIMARY CLINICAL RECORDS. [facility]. provides no warranty or guarantee of the accuracy or completeness of information in this document.
[2024-10-09] MEDS: 0.9 % SODIUM CHLORIDE 1,000 ML 125 ML IV (09:08)
[2024-10-09 09:20] LABS: Hematocrit 34.4 % (36.0-48.0); Hemoglobin 11.4 g/dL (12.0-16.0); Mean Corpuscular HGB Conc 33.1 g/dL (29.9-35.2); Mean Corpuscular Hemoglobin 27.6 pg (26.7-34.0); Mean Corpuscular Volume 83.3 fL (81.0-99.0); Platelet Count 216 10^3/uL (150-450); Red Blood Count 4.13 10^6/uL (4.20-5.40); Red Cell Distribution Width 14.3 % (11.0-15.0)
[2024-10-09] MEDS: OXYTOCIN/0.9 % SODIUM CHLORIDE 20 UNITS/1,000 ML PLAST..BAG 125 UNIT IV (09:26)
[2024-10-09 09:27] LABS: Bilirubin Urine NEGATIVE (NEGATIVE); Blood Urine SMALL (NEGATIVE); Clarity Urine SL CLOUDY (CLEAR); Color Urine YELLOW (YELLOW); Glucose Urine UA NEGATIVE (NEGATIVE); Ketones Urine TRACE mg/dL (NEGATIVE); Leukocyte Esterase Urine TRACE (NEGATIVE); Nitrite Urine NEGATIVE (NEGATIVE); Protein Urine TRACE mg/dL (NEG/TRACE); Specific Gravity Urine 1.025 (1.005-1.025)
--- NOTE | 2024-10-09 09:27 | PM.OBPRCVD ---
Procedure Intrapartal events: None Induction method: none Delivery augmentation: rupture of membranes Delivery monitor: external FHT and external uterine Route of delivery: Episiotomy Description: none L&D Laceration Description: none Estimated blood loss (mL): 250 Anesthesia type: None Disposition: floor Delivery date: 10/09/24 Gender: male presentation: vertex Placental delivery description: Spontaneous cord description: 3 Vessels and Nuchal Cord
[2024-10-09 09:39] LABS: Amphetamine Screen Urine NEGATIVE (NEGATIVE); Barbiturates Screen Urine NEGATIVE (NEGATIVE); Benzodiazepines Screen Urine NEGATIVE (NEGATIVE); Buprenorphine Screen Urine NEGATIVE (NEGATIVE); Cannabinoid Screen Urine POSITIVE (NEGATIVE); Cocaine Screen Urine NEGATIVE (NEGATIVE); Methadone Screen Urine NEGATIVE (NEGATIVE); Methamphetamines Screen Urine NEGATIVE (NEGATIVE); Opiate Screen Urine NEGATIVE (NEGATIVE); Oxycodone Screen Urine NEGATIVE (NEGATIVE); Phencyclidine Screen Urine NEGATIVE (NEGATIVE); Tricyclic Antidepressant Urine NEGATIVE (NEGATIVE)
[2024-10-09 09:46] LABS: Bacteria Urine MODERATE #/HPF (NONE SEEN); Urine Microscopic Indicated YES
[2024-10-09 09:47] LABS: Cast Seen? NONE SEEN #/LPF (NONE SEEN); Crystals Seen? None Seen #/HPF (None Seen); Mucus Urine MODERATE (NONE SEEN); Squamous Epithelial Cell Urine MANY #/LPF (NONE/RARE); Transitional Epi Cells Urine RARE #/LPF (NONE SEEN); Urine Culture Indicated YES
[2024-10-09] MEDS: BENZOCAINE/MENTHOL 85 GRAM SPRAY BOTTLE 1 APPLIC TOPICAL (10:26)
[2024-10-09] MEDS: IBUPROFEN 600 MG TABLET PO (10:26)
[2024-10-10 00:06] VITALS: BP 143/85; PULSE 72
[2024-10-10 04:51] VITALS: BP 139/96; PULSE 82
[2024-10-10 04:56] VITALS: BP 132/83; PULSE 71
[2024-10-10 06:32] LABS: Basophils Percent Auto 0.3 % (0.2-2.0); Eosinophils Absolute Auto 0.2 10^3/uL (0.0-0.7); Eosinophils Percent Auto 1.4 % (0.9-7.0); Hemoglobin 9.7 g/dL (12.0-16.0); Immature Granulocytes Abs Auto 0.05 10^3/uL (0.00-0.03); Immature Granulocytes Pct Auto 0.4 % (0.0-0.5); Lymphocytes Absolute Auto 4.1 10^3/uL (1.2-3.8); Lymphocytes Percent Auto 30.3 % (20.5-60.0); Mean Corpuscular HGB Conc 32.3 g/dL (29.9-35.2); Mean Corpuscular Hemoglobin 27.5 pg (26.7-34.0); Mean Platelet Volume 11.5 fL (9.5-13.5); Monocytes Absolute Auto 0.8 10^3/uL (0.3-0.8); Monocytes Percent Auto 5.6 % (1.7-12.0); Neutrophils Absolute Auto 8.5 10^3/uL (1.4-6.5); Platelet Count 194 10^3/uL (150-450); Red Blood Count 3.53 10^6/uL (4.20-5.40); Red Cell Distribution Width 14.4 % (11.0-15.0); White Blood Count 13.7 10^3/uL (4.0-11.0)
[2024-10-10 08:26] VITALS: BP 158/89; PULSE 71; TEMP 36.8
[2024-10-10 08:27] VITALS: BP 131/78; PULSE 67
[2024-10-10] MEDS: DOCUSATE SODIUM 100 MG CAPSULE PO (08:37)
[2024-10-10] MEDS: IBUPROFEN 600 MG TABLET PO (08:37)
[2024-10-10 12:44] VITALS: BP 135/87; PULSE 69
--- NOTE | 2024-10-10 14:13 | PM.OBPN ---
OB - PN: Subj Subjective Patient comments: no complaints and pain well controlled Victoria status: doing well Exam Constitutional Vital Signs, click to edit/add: Last Vital Signs Temp 98.2 F 10/10/24 08:26 Pulse 69 10/10/24 12:44 Resp 18 10/10/24 08:26 BP 135/87 10/10/24 12:44 O2 Del Method Room Air 10/10/24 08:32 Documenting provider has reviewed patient's vital signs: yes Common normals: no apparent distress Respiratory Common normals: normal respiratory effort Cardio Common normals: regular rate and regular rhythm GI Common normals: Normal to inspection, nondistended, normoactive bowel sounds present Extremity Common normals: no calf tenderness Results Labs Labs: Short CBC 10/10/24 Range/Units 06:25 WBC 13.7 H (4.0-11.0) 10^3/uL Hgb 9.7 L (12.0-16.0) g/dL Hct 30.0 L (36.0-48.0) % Plt Count 194 (150-450) 10^3/uL OB - PN: A/P Plan - Vaginal Delivery day: 1 Plan: routine care, discharge home and follow up 6 weeks Time Spent with Patient Time: Total time spent is greater than 50% in coordination of care (as documented) at patient's floor/unit and/or counseling patient: Total time spent with greater than 50% in coordination of care (as documented) at patient's floor/unit and/or counseling patient: less than 15 minutes
[2024-10-14 16:10] LABS: Cannabinoid Positive (.); Carboxy THC Conf, MS, UR 14 ng/mL (Cutoff=10)
== END 2024-10-10 15:30 | disposition home or self-care (01) | DRG 560 ==
PROVIDERS: Admitting Provider Obstetrics & Gynecology; PCP Family Medicine; Visit Provider Obstetrics & Gynecology
DX: O69.81X0 Labor and delivery complicated by cord around neck, without compression, not applicable or unspecified (principal); O99.324 Drug use complicating childbirth; F12.90 Cannabis use, unspecified, uncomplicated; Z3A.39 39 weeks gestation of pregnancy; Z37.0 Single live birth
CPT/HCPCS: 36415; 59025; 59050; 59410; 80307; 80349; 81001; 85025; 85027; 86850; 86900; 86901; 87086